=== PATIENT | female | born 1960 | race African-American/Black ===

== ENCOUNTER 2016-04-28 10:54 | Observation (INO) | payer MEDICAID ==
[2016-04-28 11:27] LABS: ABSOLUTE BASOPHILS # (AUTO) 0.1 10^3/uL (0.0-0.2); ABSOLUTE EOSINOPHILS # (AUTO) 0.1 10^3/uL (0.0-0.6); ABSOLUTE LYMPHOCYTES (AUTO) 1.8 10^3/uL (0.5-4.7); ABSOLUTE MONOCYTES (AUTO) 0.4 10^3/uL (0.1-1.4); ABSOLUTE NEUT (AUTO) 3.9 10^3/uL (1.7-8.2); EOSINOPHILS % (AUTO) 1.7 % (0-6); HEMOGLOBIN 12.2 g/dL (12.0-15.5); HGB HCT DIFFERENCE -0.4; LYMPHOCYTES % (AUTO) 28.6 % (13-45); MEAN CORPUSCULAR HGB CONC 32.9 g/dL (32.0-36.0); MEAN CORPUSCULAR VOLUME 88 fl (80-97); RED CELL DISTRIBUTION WIDTH 15.2 % (11.5-14.0); SEGMENTED NEUTROPHILS % (AUTO) 61.7 % (42-78); WHITE BLOOD COUNT 6.4 10^3/uL (4.0-10.5)
[2016-04-28 11:47] LABS: ALANINE AMINOTRANSFERASE 34 U/L (9-52); ALBUMIN 3.5 g/dL (3.5-5.0); ALKALINE PHOSPHATASE 57 U/L (38-126); ANION GAP 10 (5-19); ASPARTATE AMINO TRANSFERASE 22 U/L (14-36); BILIRUBIN,TOTAL 0.3 mg/dL (0.2-1.3); BLOOD UREA NITROGEN 25 mg/dL (7-20); CALCIUM 9.5 mg/dL (8.4-10.2); CARBON DIOXIDE 29 mmol/L (22-30); CHLORIDE 104 mmol/L (98-107); CREATINE KINASE 61 U/L (30-135); CREATININE RESULT 1.15 mg/dL (0.52-1.25); GLUCOSE 197 mg/dL (75-110); SODIUM 142.9 mmol/L (137-145); TOTAL PROTEIN 6.7 g/dL (6.3-8.2)
--- NOTE | 2016-04-28 11:49 | ER Document Report ---
ED General - General Time seen by provider: 11:44 Mode of Arrival: Medic Information source: Patient TRAVEL OUTSIDE OF THE [place] IN LAST 30 DAYS: No - HPI Onset: Other - see HPI note Associated symptoms: Other - room spinning sensation <TOMASA MENDEZ - Last Filed: 04/28/16 18:10> <JESSI JARA - Last Filed: 05/13/16 05:51> - General Chief Complaint: Vertigo Stated Complaint: DIFFICULTY BREATHING Notes: Patient is a 56-year-old female presents to the emergency department for dizziness. Patient states her dizziness started this morning when she woke up; she states that the room was blurry and spinning. Patient states that she was holding onto objects found walking to the bathroom because she felt very nauseated from her dizziness. Patient's dizziness is not reproducible to head movement or change in position. Patient states that this dizziness is waxing and waning if she is sitting still. Patient states she vomited 1 this morning. Patient denies being ill recently. Patient denies any shortness of breath. (TOMASA MENDEZ) - Related Data Allergies/Adverse Reactions: insulin glargine, human recombin. a [From Lantus] Adverse Reaction (Verified 17:33) Home Medications: Current Home Medications Allopurinol [Zyloprim 300 mg Tablet] 300 mg PO DAILY 04/28/16 [History] Aspirin [Aspirin 81 mg Chewable Tablet] 81 mg PO DAILY 04/28/16 [History] Carvedilol [Coreg 25 mg Tablet] 1 tab PO Q12 04/28/16 [History] Cholecalciferol (Vitamin D3) [D3-2000] 2,000 unit PO DAILY 04/28/16 [History] Gemfibrozil [Lopid 600 mg Tablet] 600 mg PO BID 04/28/16 [History] Glipizide [Glucotrol 10 mg Tablet] 10 mg PO BID 04/28/16 [History] Ibuprofen [Motrin 800 mg Tablet] 800 mg PO Q8HP PRN 04/28/16 [History] Lisinopril/Hydrochlorothiazide [Lisinopril-Hctz 20-25 mg Tab] 1 each PO DAILY [History] [place]-3/Dha/Epa/Fish Oil [Fish Oil 1,000 mg Softgel] 1 cap PO DAILY 04/28/16 [ History] Sitagliptin Phos/Metformin HCl [Janumet 50-1,000 mg Tablet] 1 tab PO BID [History] Tamoxifen Citrate [Nolvadex 10 mg Tablet] 10 mg PO BID 04/28/16 [History] Past Medical History - General Information source: Patient, Relative - Social History Smoking Status: Unknown if Ever Smoked Family History: None - Past Medical History Cardiac Medical History: Reports: Hx Hypercholesterolemia, Hx Hypertension Endocrine Medical History: Reports: Hx Diabetes Mellitus Type 2 Malignancy Medical History: Reports: Hx Breast Cancer Musculoskeltal Medical History: Reports Hx Arthritis Past Surgical History: Reports: Hx Breast Surgery - L. node on breast, Hx Section - x 1, Hx Hysterectomy, Hx Mastectomy - left breast - Immunizations Hx Diphtheria, Pertussis, Tetanus Vaccination: Yes <TOMASA MENDEZ - Last Filed: 04/28/16 18:10> Review of Systems - Review of Systems Constitutional: No symptoms reported EENT: No symptoms reported Cardiovascular: See HPI, Dizziness Respiratory: No symptoms reported Gastrointestinal: See HPI, Nausea, Vomiting Genitourinary: No symptoms reported Female Genitourinary: No symptoms reported Musculoskeletal: No symptoms reported Skin: No symptoms reported Hematologic/Lymphatic: No symptoms reported Neurological/Psychological: No symptoms reported -: Yes All other systems reviewed and negative <TOMASA MENDEZ - Last Filed: 04/28/16 18:10> Physical Exam - Vital signs Interpretation: Normal - General General appearance: Appears well, Alert In distress: Mild - HEENT Head: Normocephalic, Atraumatic Eyes: Normal Pupils: PERRL Mucous membranes: Moist - Respiratory Respiratory status: No respiratory distress Chest status: Nontender Breath sounds: Normal Chest palpation: Normal - Cardiovascular Rhythm: Regular Heart sounds: Normal auscultation Murmur: No - Abdominal Inspection: Normal Distension: No distension Bowel sounds: Normal Tenderness: Nontender Organomegaly: No organomegaly - Back Back: Normal, Nontender - Extremities General upper extremity: Normal inspection, Normal ROM, Normal strength General lower extremity: Normal inspection, Normal ROM, Normal strength - Neurological Neuro grossly intact: Yes Cognition: Normal Orientation: AAOx4 Dirk Coma Scale Eye Opening: Spontaneous [place] Coma Scale Verbal: Oriented [place] Coma Scale Motor: Obeys Commands Dirk Coma Scale Total: 15 Speech: Normal - Psychological Associated symptoms: Normal affect, Normal mood - Skin Skin Temperature: Warm Skin Moisture: Dry <TOMASA MENDEZ - Last Filed: 04/28/16 18:10> Course - Laboratory Result Diagrams: 04/28/16 11:12 04/28/16 11:12 <TOMASA MENDEZ - Last Filed: 04/28/16 18:10> - Laboratory Result Diagrams: 04/29/16 03:01 04/29/16 03:01 <JESSI JARA - Last Filed: 05/13/16 05:51> - Re-evaluation Re-evalutation: 04/28/16 15:28 I personally performed the services described in the documentation, reviewed and edited the documentation which was dictated to my scribe in my presence, and it accurately records my words and actions. Patient presents emergency department acute onset of dizziness when she woke up this morning. She said she got up the room was blurry she was dizzy shot a walk to the bathroom she made to the bathroom and had to grab onto everything was nauseated her dizziness was not reproducible to head movement or change in position. She had blurred vision earlier in the day but tonight currently on examination blood pressure was slightly elevated but she hadn't taken her medicine yet no history of stroke in the past. No speech or memory weakness on one side of the body versus the other on examination blood pressure slightly elevated no acute neurological deficits her dizziness was not reproducible to head movement or change in position and is persistent despite medication and Antivert here in the emergency department initial CT the head is negative I talked to Dr. Sanchez I want to admit her to the hospital and have an MRI done to rule out a cerebellar stroke. He agreed to this, put her in as an observation patient for further assessment and evaluation (JESSI JARA) - Vital Signs Vital signs: Temp Pulse Resp BP Pulse Ox 97.9 F 112 H 20 153/93 H 93 04/29/16 15:33 04/29/16 15:33 04/29/16 15:33 04/29/16 15:33 04/29/16 15:33 - Laboratory Laboratory results interpreted by me: 04/28/16 04/28/16 04/28/16 11:12 11:12 13:49 RDW 15.2 H BUN 25 H Est GFR ( Amer) 59 L Est GFR (Non-Af Amer) 49 L Glucose 197 H Urine Glucose (UA) 50 H - EKG Interpretation by Me Additional EKG results interpreted by me: 04/28/16 15:24 sinus at [address] t changes (JESSI JARA) Critical Care Note - Critical Care Note Total time excluding time spent on procedures (mins): 60 <JESSI JARA - Last Filed: 05/13/16 05:51> Discharge <TOMASA MENDEZ - Last Filed: 04/28/16 18:10> - Discharge Admitting Provider: Layla Unit Admitted: Telemetry <JESSI JARA - Last Filed: 05/13/16 05:51> - Discharge Clinical Impression: acute dizziness, Elevated blood pressure reading Condition: Stable Disposition: ADMITTED OBSERVATION Scribe Documentation - Scribe Written by Scribe:: Tomasa Mendez 04/28/16 11:48 acting as scribe for :: MAREK <TOMASA MENDEZ - Last Filed: 04/28/16 18:10>
[2016-04-28] MEDS ORDERED: MECLIZINE HCL 25 MG TABLET PO ONE (11:50)
[2016-04-28] MEDS ORDERED: NORMAL SALINE 1000 ML 500 ML IV ONE (11:51)
[2016-04-28] MEDS ORDERED: ONDANSETRON HCL 8 MG TABLET PO ONE (11:51)
[2016-04-28 11:59] LABS: CREATINE KINASE MB 0.28 ng/mL (<4.55)
[2016-04-28 12:00] LABS: TROPONIN I < 0.012 ng/mL
[2016-04-28 15:02] LABS: APPEARANCE,URINE CLEAR; BILIRUBIN,URINE NEGATIVE (NEGATIVE); GLUCOSE, URINE 50 mg/dL (NEGATIVE); KETONES,URINE NEGATIVE (NEGATIVE); LEUKOCYTE ESTERASE,URINE NEGATIVE (NEGATIVE); NITRITE,URINE NEGATIVE (NEGATIVE); PROTEIN,URINE NEGATIVE (NEGATIVE); URINE SPECIFIC GRAVITY 1.015; UROBILINOGEN,URINE NEGATIVE mg/dL (<2.0)
[2016-04-28] MEDS ORDERED: ACETAMINOPHEN 325 MG TABLET PO PRN (21:08)
[2016-04-28] MEDS ORDERED: ZOLPIDEM TARTRATE 5 MG TABLET PO PRN (21:08)
[2016-04-28] MEDS ORDERED: DEXTROSE 40% GEL 15 GM TUBE X 2 PO PRN (21:09)
[2016-04-28] MEDS ORDERED: DOCUSATE SODIUM 100 MG CAPSULE PO PRN (21:09)
[2016-04-28] MEDS ORDERED: GLUCAGON,HUMAN RECOMB 1 MG INJ IM PRN (21:09)
[2016-04-28] MEDS ORDERED: DEXTROSE 50%-WATER SYRINGE 12.5 GM/25 ML DOSE IV PRN (21:09)
[2016-04-28] MEDS ORDERED: DEXTROSE 50%-WATER SYRINGE 25 GM/50 ML DOSE IV PRN (21:09)
[2016-04-28] MEDS ORDERED: DEXTROSE 40% GEL 15 GM TUBE PO PRN (21:09)
[2016-04-28] MEDS ORDERED: INSULIN LISPRO 100 UNIT/ML 3 ML VIAL SUBCUT PRN (21:09)
[2016-04-28] MEDS ORDERED: IBUPROFEN 800 MG TABLET PO PRN (21:14)
[2016-04-28] MEDS ORDERED: (PENDING PHARMACY ID) (Carvedilol [Coreg 25 Mg Tablet] 1 TAB) PO SCH (22:00)
[2016-04-28 22:19] LABS: CREATINE KINASE MB < 0.22 ng/mL (<4.55); TROPONIN I < 0.012 ng/mL
[2016-04-29 03:36] LABS: ABSOLUTE BASOPHILS # (AUTO) 0.1 10^3/uL (0.0-0.2); ABSOLUTE EOSINOPHILS # (AUTO) 0.2 10^3/uL (0.0-0.6); ABSOLUTE LYMPHOCYTES (AUTO) 2.6 10^3/uL (0.5-4.7); ABSOLUTE MONOCYTES (AUTO) 0.7 10^3/uL (0.1-1.4); ABSOLUTE NEUT (AUTO) 4.1 10^3/uL (1.7-8.2); BASOPHILS % (AUTO) 0.7 % (0-2); HEMATOCRIT 36.1 % (36.0-47.0); HEMOGLOBIN 11.7 g/dL (12.0-15.5); LYMPHOCYTES % (AUTO) 34.5 % (13-45); MEAN CORPUSCULAR HEMOGLOBIN 28.9 pg (27.0-33.4); MEAN CORPUSCULAR HGB CONC 32.5 g/dL (32.0-36.0); MEAN CORPUSCULAR VOLUME 89 fl (80-97); MONOCYTES % (AUTO) 9.1 % (3-13); RED BLOOD COUNT 4.06 10^6/uL (3.72-5.28); RED CELL DISTRIBUTION WIDTH 14.5 % (11.5-14.0); SEGMENTED NEUTROPHILS % (AUTO) 53.7 % (42-78); WHITE BLOOD COUNT 7.6 10^3/uL (4.0-10.5)
[2016-04-29 03:55] LABS: ALANINE AMINOTRANSFERASE 30 U/L (9-52); ALBUMIN 3.3 g/dL (3.5-5.0); ALKALINE PHOSPHATASE 54 U/L (38-126); ANION GAP 8 (5-19); ASPARTATE AMINO TRANSFERASE 22 U/L (14-36); BILIRUBIN,TOTAL 0.3 mg/dL (0.2-1.3); BLOOD UREA NITROGEN 22 mg/dL (7-20); CALCIUM 9.4 mg/dL (8.4-10.2); CARBON DIOXIDE 28 mmol/L (22-30); CHLORIDE 106 mmol/L (98-107); CHOLESTEROL 140.59 mg/dL (0-200); CREATININE RESULT 1.15 mg/dL (0.52-1.25); Direct HDL 43 mg/dL (>40); GLUCOSE 210 mg/dL (75-110); POTASSIUM 3.9 mmol/L (3.6-5.0); SODIUM 141.5 mmol/L (137-145); TOTAL PROTEIN 6.3 g/dL (6.3-8.2); TRIGLYCERIDES 212 mg/dL (<150)
[2016-04-29 04:06] LABS: DIRECT LDL 65 mg/dL (<100)
[2016-04-29 04:09] LABS: VLDL CHOLESTEROL 42.4 mg/dL (10-31)
[2016-04-29 04:10] LABS: CREATINE KINASE MB < 0.22 ng/mL (<4.55)
[2016-04-29 04:11] LABS: TROPONIN I < 0.012 ng/mL
--- NOTE | 2016-04-29 05:33 | EKG REPORT ---
SEVERITY:- NORMAL ECG - SINUS RHYTHM : Confirmed by: Arin Ellis MD 29-Apr-2016 05:32:47
--- NOTE | 2016-04-29 05:33 | EKG REPORT ---
SEVERITY:- NORMAL ECG - SINUS RHYTHM : Confirmed by: Arin Ellis MD 29-Apr-2016 05:32:42
[2016-04-29] MEDS ORDERED: MECLIZINE HCL 25 MG TABLET PO PRN (09:03)
[2016-04-29] MEDS ORDERED: CHOLECALCIFEROL (D3) 1,000 UNIT TABLET PO SCH (10:00)
[2016-04-29] MEDS ORDERED: HYDROCHLOROTHIAZIDE 25 MG TABLET PO SCH (10:00)
[2016-04-29] MEDS ORDERED: GLIPIZIDE 10 MG TABLET PO SCH (10:00)
[2016-04-29] MEDS ORDERED: SITAGLIPTIN PHOSPHATE 50 MG TABLET PO SCH (10:00)
[2016-04-29] MEDS ORDERED: (PENDING PHARMACY ID) (Cholecalciferol (Vitamin D3) [D3-2000] 2,000 UNIT) PO SCH (10:00)
[2016-04-29] MEDS ORDERED: (PENDING PHARMACY ID) (Omega-3/Dha/Epa/Fish Oil [Fish Oil 1,000 Mg Softgel] 1 CAP) PO SCH (10:00)
[2016-04-29] MEDS ORDERED: TAMOXIFEN CITRATE 10 MG TABLET PO SCH (10:00)
[2016-04-29] MEDS ORDERED: OMEGA-3 ACID ETHYL ESTERS 1 GM CAPSULE PO SCH (10:00)
[2016-04-29] MEDS ORDERED: (PENDING PHARMACY ID) (Sitagliptin Phos/Metformin Hcl [Janumet 50-1,000 Mg Tablet] 1 TAB) PO SCH (10:00)
[2016-04-29] MEDS ORDERED: METFORMIN HCL 500 MG TABLET PO SCH (10:00)
[2016-04-29] MEDS ORDERED: GEMFIBROZIL 600 MG TABLET PO SCH (10:00)
[2016-04-29] MEDS ORDERED: ALLOPURINOL 300 MG TABLET PO SCH (10:00)
[2016-04-29] MEDS ORDERED: ENOXAPARIN SODIUM INJ 40 MG/0.4 ML DISP.SYRIN SUBCUT SCH (10:00)
[2016-04-29] MEDS ORDERED: CARVEDILOL 12.5 MG TABLET PO SCH (10:00)
[2016-04-29] MEDS ORDERED: ASPIRIN 81 MG TABLET, CHEWABLE PO SCH (10:00)
[2016-04-29] MEDS ORDERED: LISINOPRIL 10 MG TABLET PO SCH (10:00)
[2016-04-29] MEDS ORDERED: (PENDING PHARMACY ID) (Lisinopril/Hydrochlorothiazide [Lisinopril-Hctz 20-25 Mg Tab] 1 EAC PO SCH (10:00)
--- NOTE | 2016-04-29 12:11 | PDOC H&P ---
History of Present Illness Admission Date/PCP: 04/28/16 15:46 JOSH CALL MD Patient complains of: Dizziness- persistent History of Present Illness: JESSIE BELL is a 56 year old female with hx of DM2/HTN/Hyperlipidemia/BRIAN on CPAP/GERD/Gout/Back pain/OA/Gout/Vitamin D def/Constipation/Ca breast s.p lumpectomy/radiotherapy who presented to ED for persistent dizziness. Denied nausea/vomiting/chest pain/dyspnea/Palpitations/Diarrphoresis/Vertigo/deafness/ syncope.Denied previous hx of dizziness. She was admitted for full work up to rule out CVA. Past Medical History Cardiac Medical History: Reports: Hyperlipidema, Hypertension Endocrine Medical History: Reports: Diabetes Mellitus Type 2 Malignancy Medical History: Reports: Breast Cancer Musculoskeltal Medical History: Reports: Arthritis Psychiatric Medical History: Reports: Depression Hematology: Reports: Anemia Past Surgical History Past Surgical History: Reports: Section - x 1, Hysterectomy, Mastectomy - left breast Social History Smoking Status: Never Smoker Frequency of Alcohol Use: None Hx Recreational Drug Use: No Hx Prescription Drug Abuse: No - Advance Directive Resuscitation Status: Full Code Family History Family History: None Parental Family History Reviewed: Yes Children Family History Reviewed: Yes Sibling(s) Family History Reviewed.: Yes Medication/Allergy Home Medications: Allopurinol [Zyloprim 300 mg Tablet] 300 mg PO DAILY 04/28/16 Aspirin [Aspirin 81 mg Chewable Tablet] 81 mg PO DAILY 04/28/16 Carvedilol [Coreg 25 mg Tablet] 1 tab PO Q12 04/28/16 Cholecalciferol (Vitamin D3) [D3-2000] 2,000 unit PO DAILY 04/28/16 Gemfibrozil [Lopid 600 mg Tablet] 600 mg PO BID 04/28/16 Glipizide [Glocotrol 10 Mg Tablet] 10 mg PO BID 04/28/16 Ibuprofen [Motrin 800 mg Tablet] 800 mg PO Q8HP PRN 04/28/16 Lisinopril/Hydrochlorothiazide [Lisinopril-Hctz 20-25 mg Tab] 1 each PO DAILY [place]-3/Dha/Epa/Fish Oil [Fish Oil 1,000 mg Softgel] 1 cap PO DAILY 04/28/16 Sitagliptin Phos/Metformin HCl [Janumet 50-1,000 Mg Tablet] 1 tab PO BID Tamoxifen Citrate [Nolvadex 10 Mg Tablet] 10 mg PO BID 04/28/16 Allergies/Adverse Reactions: insulin glargine, human recombin. a [From Lantus] Adverse Reaction (Verified 17:33) Review of Systems All systems: as per PMH Constitutional: PRESENT: as per HPI Eyes: PRESENT: as per HPI Ears: PRESENT: as per HPI Nose, Mouth, and Throat: PRESENT: as per HPI Breasts: PRESENT: as per HPI Cardiovascular: PRESENT: as per HPI - Dizziness Respiratory: PRESENT: as per HPI Gastrointestinal: PRESENT: as per HPI Genitourinary: PRESENT: as per HPI Musculoskeletal: PRESENT: as per HPI Integumentary: PRESENT: as per HPI Neurological: PRESENT: dizziness Psychiatric: PRESENT: as per HPI Endocrine: PRESENT: as per HPI Hematologic/Lymphatic: PRESENT: as per HPI Allergic/Immunologic: PRESENT: as per HPI Physical Exam Vital Signs: Temp Pulse Resp BP Pulse Ox 98.8 F 63 20 131/87 H 98 04/29/16 11:08 04/29/16 11:08 04/29/16 11:08 04/29/16 11:08 04/29/16 11:08 Intake & Output 04/28/16 04/29/16 04/30/16 06:59 06:59 06:59 Intake Total 55 Output Total 200 Balance -145 Weight 135.6 kg General appearance: PRESENT: no acute distress, obese, well-developed, well- nourished Head exam: PRESENT: atraumatic, normocephalic Eye exam: PRESENT: EOMI, PERRLA Ear exam: PRESENT: normal external ear exam, TM's normal bilaterally Mouth exam: PRESENT: moist, neck supple, tongue midline Respiratory exam: PRESENT: clear to auscultation panda, symmetrical Cardiovascular exam: PRESENT: +S1, +S2 Pulses: PRESENT: +2 pedal pulses bilateral Vascular exam: PRESENT: normal capillary refill GI/Abdominal exam: PRESENT: normal bowel sounds, soft Rectal exam: PRESENT: deferred Extremities exam: PRESENT: full ROM Neurological exam: PRESENT: alert, awake, oriented to person, oriented to place , oriented to time Psychiatric exam: PRESENT: normal mood Results Laboratory Results: 04/29/16 03:01 04/29/16 03:01 04/29/16 04/29/16 04/29/16 03:01 03:01 03:01 WBC 7.6 RBC 4.06 Hgb 11.7 L Hct 36.1 MCV 89 MCH 28.9 MCHC 32.5 RDW 14.5 H Plt Count 202 Seg Neutrophils % 53.7 Lymphocytes % 34.5 Monocytes % 9.1 Eosinophils % 2.0 Basophils % 0.7 Absolute Neutrophils 4.1 Absolute Lymphocytes 2.6 Absolute Monocytes 0.7 Absolute Eosinophils 0.2 Absolute Basophils 0.1 Sodium 141.5 Potassium 3.9 Chloride 106 Carbon Dioxide 28 Anion Gap 8 BUN 22 H Creatinine 1.15 Est GFR ( Amer) 59 L Est GFR (Non-Af Amer) 49 L Glucose 210 H Calcium 9.4 Total Bilirubin 0.3 AST 22 ALT 30 Alkaline Phosphatase 54 Total Protein 6.3 Albumin 3.3 L Triglycerides 212 H Cholesterol 140.59 LDL Cholesterol Direct 65 VLDL Cholesterol 42.4 H HDL Cholesterol 43 TSH 2.28 04/28/16 04/28/16 04/29/16 21:35 21:35 03:01 Creatine Kinase 53 48 CK-MB (CK-2) < 0.22 Troponin I < 0.012 04/29/16 03:01 Creatine Kinase CK-MB (CK-2) < 0.22 Troponin I < 0.012 Impressions: Head CT 04/28/16 11:50 IMPRESSION: NORMAL BRAIN CT WITHOUT CONTRAST. Head MRI 04/29/16 06:00 IMPRESSION: ESSENTIALLY NORMAL MRI OF THE BRAIN WITHOUT AND WITH INTRAVENOUS GADOLINIUM CONTRAST. Assessment & Plan - Diagnosis (1) Dizziness Is this a current diagnosis for this admission?: YesPlan: Meclizine 25 mg TID prn po; Both CT head and MRI head with contrast are negative ;EKG and cardiac enzymes are negative. We will f/u Carotid doppler US and ECHO. (2) Diabetes mellitus type 2 in obese Is this a current diagnosis for this admission?: YesPlan: Ct with Janumet 1 BID po; Glipizide 10 mg BID po; slidding scale with humalog insulin [facility] protocol; 1800 calorie ADA diet. (3) Hypertension Is this a current diagnosis for this admission?: YesPlan: Ct with Lisinopril 20 mg qd po; Coreg 25 mg BID po; HCTZ 25 mg qd po; 2 g sodium diet. (4) Hyperlipidemia Is this a current diagnosis for this admission?: YesPlan: Ct with Gemfibrozil 600 mg BID po; [place] 3 1 g qd po; 200 mg cholesterol diet. (5) Back pain Is this a current diagnosis for this admission?: YesPlan: Ct with Tylenol 650 mg q6h prn po; Ibuprofen 800 mg TID prn po. (6) Gout Is this a current diagnosis for this admission?: YesPlan: CT with Allopurinol 300 mg qd po. (7) Obstructive sleep apnea Is this a current diagnosis for this admission?: YesPlan: Ct with CPAP at night. (8) Vitamin D deficiency Is this a current diagnosis for this admission?: YesPlan: Ct with Vitamin D 2000iu qd po. (9) Constipation Is this a current diagnosis for this admission?: YesPlan: Ct with Colace 100 mg qd prn po (10) Breast cancer Is this a current diagnosis for this admission?: YesPlan: Ct with Tamoxifen 10 mg BID po. (11) DVT prophylaxis Is this a current diagnosis for this admission?: YesPlan: Ct with Lovenox 40 mg qd subcut; SCD. - Time Time Spent: 30 to 50 Minutes Medications reviewed and adjusted accordingly: Yes Anticipated discharge: Home Within: within 24 hours
--- NOTE | 2016-04-29 15:23 | PDOC DISCHARGE SUMMARY ---
General - Admit/Disc Date/PCP Admission Date/Primary Care Provider: 04/28/16 15:46 REGGIE OROURKE Discharge Date: 04/29/16 - Discharge Diagnosis (1) Dizziness Is this a current diagnosis for this admission?: Yes (2) Diabetes mellitus type 2 in obese Is this a current diagnosis for this admission?: Yes (3) Hypertension Is this a current diagnosis for this admission?: Yes (4) Hyperlipidemia Is this a current diagnosis for this admission?: Yes (5) Back pain Is this a current diagnosis for this admission?: Yes (6) Gout Is this a current diagnosis for this admission?: Yes (7) Obstructive sleep apnea Is this a current diagnosis for this admission?: Yes (8) Vitamin D deficiency Is this a current diagnosis for this admission?: Yes (9) Constipation Is this a current diagnosis for this admission?: Yes (10) Breast cancer Is this a current diagnosis for this admission?: Yes (11) DVT prophylaxis Is this a current diagnosis for this admission?: Yes - Additional Information Resuscitation Status: Full Code Home Medications: Allopurinol [Zyloprim 300 mg Tablet] 300 mg PO DAILY 04/28/16 Aspirin [Aspirin 81 mg Chewable Tablet] 81 mg PO DAILY 04/28/16 Carvedilol [Coreg 25 mg Tablet] 1 tab PO Q12 04/28/16 Cholecalciferol (Vitamin D3) [D3-2000] 2,000 unit PO DAILY 04/28/16 Gemfibrozil [Lopid 600 mg Tablet] 600 mg PO BID 04/28/16 Glipizide [Glocotrol 10 Mg Tablet] 10 mg PO BID 04/28/16 Ibuprofen [Motrin 800 mg Tablet] 800 mg PO Q8HP PRN 04/28/16 Lisinopril/Hydrochlorothiazide [Lisinopril-Hctz 20-25 mg Tab] 1 each PO DAILY [place]-3/Dha/Epa/Fish Oil [Fish Oil 1,000 mg Softgel] 1 cap PO DAILY 04/28/16 Sitagliptin Phos/Metformin HCl [Janumet 50-1,000 Mg Tablet] 1 tab PO BID Tamoxifen Citrate [Nolvadex 10 Mg Tablet] 10 mg PO BID 04/28/16 History of Present Illness History of Present Illness: JESSIE BELL is a 56 year old female with hx of DM2/HTN/Hyperlipidemia/BRIAN on CPAP/GERD/Gout/Back pain/OA/Gout/Vitamin D def/Constipation/Ca breast s.p lumpectomy/radiotherapy who presented to ED for persistent dizziness. Denied nausea/vomiting/chest pain/dyspnea/Palpitations/Diarrphoresis/Vertigo/deafness/ syncope.Denied previous hx of dizziness. She was admitted for full work up to rule out CVA. Hospital Course Hospital Course: 56 year old woman who was admitted for dizziness of unclear etiology; she had serial EKG/cardiac enzymes and KS was ruled out. She normal CT head and MRI heard with contrast. She had normal Carotid doppler US. Her ECHO report is pending. She will be discharged home on Meclizine and to f/u with her PCP next week. Physical Exam Vital Signs: Temp Pulse Resp BP Pulse Ox 98.8 F 63 20 131/87 H 98 04/29/16 11:08 04/29/16 11:08 04/29/16 11:08 04/29/16 11:08 04/29/16 11:08 Intake & Output 04/28/16 04/29/16 04/30/16 06:59 06:59 06:59 Intake Total 55 0 Output Total 200 300 Balance -145 -300 Weight 135.6 kg General appearance: PRESENT: no acute distress, morbidly obese, obese, well- developed, well-nourished Head exam: PRESENT: atraumatic, normocephalic Eye exam: PRESENT: EOMI, PERRLA Ear exam: PRESENT: normal external ear exam, TM's normal bilaterally Mouth exam: PRESENT: moist, neck supple Respiratory exam: PRESENT: clear to auscultation panda, symmetrical Cardiovascular exam: PRESENT: +S1, +S2 Pulses: PRESENT: +2 pedal pulses bilateral Vascular exam: PRESENT: normal capillary refill GI/Abdominal exam: PRESENT: normal bowel sounds, soft Rectal exam: PRESENT: deferred Neurological exam: PRESENT: alert, awake, oriented to person, oriented to place , oriented to time Psychiatric exam: PRESENT: normal mood Results Laboratory Results: 04/29/16 03:01 04/29/16 03:01 04/29/16 04/29/16 04/29/16 03:01 03:01 03:01 WBC 7.6 RBC 4.06 Hgb 11.7 L Hct 36.1 MCV 89 MCH 28.9 MCHC 32.5 RDW 14.5 H Plt Count 202 Seg Neutrophils % 53.7 Lymphocytes % 34.5 Monocytes % 9.1 Eosinophils % 2.0 Basophils % 0.7 Absolute Neutrophils 4.1 Absolute Lymphocytes 2.6 Absolute Monocytes 0.7 Absolute Eosinophils 0.2 Absolute Basophils 0.1 Sodium 141.5 Potassium 3.9 Chloride 106 Carbon Dioxide 28 Anion Gap 8 BUN 22 H Creatinine 1.15 Est GFR ( Amer) 59 L Est GFR (Non-Af Amer) 49 L Glucose 210 H Calcium 9.4 Total Bilirubin 0.3 AST 22 ALT 30 Alkaline Phosphatase 54 Total Protein 6.3 Albumin 3.3 L Triglycerides 212 H Cholesterol 140.59 LDL Cholesterol Direct 65 VLDL Cholesterol 42.4 H HDL Cholesterol 43 TSH 2.28 04/28/16 04/28/16 04/29/16 21:35 21:35 03:01 Creatine Kinase 53 48 CK-MB (CK-2) < 0.22 Troponin I < 0.012 04/29/16 03:01 Creatine Kinase CK-MB (CK-2) < 0.22 Troponin I < 0.012 Impressions: Head CT 04/28/16 11:50 IMPRESSION: NORMAL BRAIN CT WITHOUT CONTRAST. Carotid Doppler Study 04/29/16 06:00 IMPRESSION: NO HEMODYNAMICALLY SIGNIFICANT STENOSIS. Head MRI 04/29/16 06:00 IMPRESSION: ESSENTIALLY NORMAL MRI OF THE BRAIN WITHOUT AND WITH INTRAVENOUS GADOLINIUM CONTRAST.
[2016-04-29 15:45] VITALS: BP 153/93
--- NOTE | 2016-04-29 17:11 | XCELERA REPORT ---
[address] [address] Transthoracic Echocardiogram Report Name: JESSIE BELL Age: 56 yrs Gender: Female : 1960 Patient Status: Inpatient Patient Location: [id number]\302\[id number] Study Date: 04/29/2016 02:05 PM Height: 66 in Weight: 298 lb BSA: 2.4 m2 Procedure: A complete two-dimensional transthoracic echocardiogram was performed (2D, M-mode, spectral and color flow Doppler). The study was technically difficult with many images being suboptimal in quality. Reason For Study: dizziness / vertigo Ordering Physician: JOSH CALL Performed By: Vicki Murray Interpretation Summary The left ventricular ejection fraction is normal. There is mild concentric left ventricular hypertrophy. Doppler measurements suggest pseudonormalized left ventricular relaxation, which is associated with grade II/IV or mild to moderate diastolic dysfunction The left ventricle is grossly normal size. Wall motion cannot be accurately commented on, but no definite regional wall motion abnormalities noted. The right ventricle is grossly normal size. The right ventricular systolic function is normal. The right atrium is normal. Borderline left atrial enlargement. There is no mitral valve stenosis. There is a trace amount of mitral regurgitation There is no aortic valve stenosis No aortic regurgitation is present. There is a trace or physiologic amount of tricuspid regurgitation Tricuspid regurgitation jet envelope not well defined to measure RV systolic pressure accurately. The aortic root is not well visualized. The inferior vena cava was not well visualized There is no pericardial effusion. MMode/2D Measurements \T\ Calculations RVDd: 2.8 cm LVIDd: 4.1 cm FS: 40.4 % Ao root diam: 3.1 cm IVSd: 1.1 cm LVIDs: 2.5 cm EDV(Teich): 75.2 ml LVPWd: 1.1 cm ESV(Teich): 21.4 ml Ao root area: 7.4 cm2 EF(Teich): 71.6 % LA dimension: 3.7 cm LVOT diam: 1.9 cm LVOT area: 2.9 cm2 Doppler Measurements \T\ Calculations MV E max mellisa: MV P1/2t max mellisa: Ao V2 max: LV V1 max P.2 cm/sec 66.1 cm/sec 173.7 cm/sec 7.0 mmHg MV A max mellisa: MV P1/2t: 56.5 msec Ao max PG: LV V1 max: 72.1 cm/sec MVA(P1/2t): 3.9 cm2 12.1 mmHg 131.9 cm/sec MV E/A: 0.89 MV dec slope: MERVIN(V,D): 2.2 cm2 342.9 cm/sec2 PA V2 max: TR max mellisa: 97.2 cm/sec 218.2 cm/sec PA max PG: TR max P.0 mmHg 3.8 mmHg Left Ventricle The left ventricle is grossly normal size. There is mild concentric left ventricular hypertrophy. The left ventricular ejection fraction is normal. Doppler measurements suggest pseudonormalized left ventricular relaxation, which is associated with grade II/IV or mild to moderate diastolic dysfunction. Wall motion cannot be accurately commented on, but no definite regional wall motion abnormalities noted. Right Ventricle The right ventricle is grossly normal size. There is normal right ventricular wall thickness. The right ventricular systolic function is normal. Atria The right atrium is normal. Borderline left atrial enlargement. Interarterial septum not well visualized and not well dopplered. Cannot comment on ASD/PFO presence. Mitral Valve The mitral valve is grossly normal. There is no mitral valve stenosis. There is a trace amount of mitral regurgitation. Aortic Valve The aortic valve is not well visualized secondary to technical limitations. There is no aortic valve stenosis. No aortic regurgitation is present. Tricuspid Valve The tricuspid valve is not well visualized, but is grossly normal. There is no tricuspid stenosis. There is a trace or physiologic amount of tricuspid regurgitation. Tricuspid regurgitation jet envelope not well defined to measure RV systolic pressure accurately. Pulmonic Valve The pulmonic valve is not well visualized. Great Vessels The aortic root is not well visualized. The inferior vena cava was not well visualized. Effusions There is no pericardial effusion. : JOSH CALL > Jimmy Quintanilla
--- NOTE | 2016-04-30 16:05 | EKG REPORT ---
SEVERITY:- BORDERLINE ECG - SINUS RHYTHM PROBABLE LEFT ATRIAL ABNORMALITY BORDERLINE T ABNORMALITIES, DIFFUSE LEADS : Confirmed by: Arin Ellis MD 30-Apr-2016 16:04:48
== END 2016-04-29 17:15 | disposition home or self-care (01) ==
LOC: ER 10:54 → EH 15:46 → 3N 19:54
PROVIDERS: ADMIT Internal Medicine; ATTEND Internal Medicine
DX: R42 Dizziness and giddiness (principal); E11.9 Type 2 diabetes mellitus without complications; I10 Essential (primary) hypertension; M54.9 Dorsalgia, unspecified; E78.5 Hyperlipidemia, unspecified; M10.9 Gout, unspecified; G47.33 Obstructive sleep apnea (adult) (pediatric); E55.9 Vitamin D deficiency, unspecified; K59.00 Constipation, unspecified; C50.919 Malignant neoplasm of unspecified site of unspecified female breast
CPT/HCPCS: 93005 ×3; 99291; 36415 ×2; 82553 ×2; 82962 ×2; 82550 ×2; 84443; 85025 ×2; 80053 ×2; 81001; 84484 ×2; 83036; 80061; 93306; 93880; 70553; 70450; 93010 ×2; A9577; J3490 ×9; J1650; S0119; J7030; G0378

== ENCOUNTER 2016-08-03 01:34 | Emergency (ER) | payer MEDICARE, MEDICAID ==
--- NOTE | 2016-08-03 02:33 | RADIOLOGY REPORT (SQ) ---
EXAM DESCRIPTION: CHEST PA/LAT COMPLETED DATE/TIME: 08/03/2016 2:19 am REASON FOR STUDY: cough, fever COMPARISON: 12.17.14 EXAM PARAMETERS: NUMBER OF VIEWS: two views TECHNIQUE: Digital Frontal and Lateral radiographic views of the chest acquired. RADIATION DOSE: NA LIMITATIONS: none FINDINGS: LUNGS AND PLEURA: No opacities, masses or pneumothorax. No pleural effusion. Prominent in terstitium. With MEDIASTINUM AND HILAR STRUCTURES: No masses or contour abnormalities. HEART AND VASCULAR STRUCTURES: Heart normal size. No evidence for failure. BONES: No acute findings. HARDWARE: None in the chest. OTHER: No other significant finding. IMPRESSION: No acute cardiopulmonary findings. TECHNICAL DOCUMENTATION: JOB ID: [id number] [email or web address]- All Rights Reserved
[2016-08-03] MEDS ORDERED: ACETAMINOPHEN 325 MG TABLET PO ONE (03:49)
[2016-08-03 04:27] LABS: APPEARANCE,URINE SLIGHTLY-CLOUDY; BILIRUBIN,URINE NEGATIVE (NEGATIVE); GLUCOSE, URINE NEGATIVE (NEGATIVE); KETONES,URINE TRACE mg/dL (NEGATIVE); LEUKOCYTE ESTERASE,URINE LARGE (NEGATIVE); NITRITE,URINE NEGATIVE (NEGATIVE); PROTEIN,URINE 30 mg/dL (NEGATIVE); URINE SPECIFIC GRAVITY 1.009; UROBILINOGEN,URINE NEGATIVE mg/dL (<2.0)
[2016-08-03] MEDS ORDERED: CEFTRIAXONE INJ 1000 MG VIAL IM ONE (04:51)
[2016-08-03] MEDS ORDERED: LIDOCAINE 1% INJ-PF (10 MG/ML) 30 ML SDV INFIL ONE (04:51)
--- NOTE | 2016-08-03 04:52 | ER Document Report ---
ED General - General Chief Complaint: Fever Stated Complaint: DIFFICULTY BREATHING Time Seen by Provider: 08/03/16 02:04 Notes: Patient is a 56-year-old female presents with complaint of pain in her left flank. She has had fevers. No vomiting. No diarrhea. No abdominal pain. Pain is mostly of her left lower back. She has had a slight cough. Slight headache. Symptoms started today. She is diabetic. She has not taken anything for her fever at home. TRAVEL OUTSIDE OF THE [place] IN LAST 30 DAYS: No - Related Data Allergies/Adverse Reactions: insulin glargine, human recombin. a [From Lantus] Adverse Reaction (Verified 17:33) Past Medical History - Social History Smoking Status: Unknown if Ever Smoked Frequency of alcohol use: None Drug Abuse: None Family History: None - Past Medical History Cardiac Medical History: Reports: Hx Hypercholesterolemia, Hx Hypertension Endocrine Medical History: Reports: Hx Diabetes Mellitus Type 2 Renal/ Medical History: Denies: Hx Peritoneal Dialysis Malignancy Medical History: Reports: Hx Breast Cancer Musculoskeltal Medical History: Reports Hx Arthritis Psychiatric Medical History: Reports: Hx Depression Past Surgical History: Reports: Hx Breast Surgery - L. node on breast, Hx Section - x 1, Hx Hysterectomy, Hx Mastectomy - left breast - Immunizations Hx Diphtheria, Pertussis, Tetanus Vaccination: Yes Review of Systems - Review of Systems Notes: My Normal Review Basic REVIEW OF SYSTEMS: CONSTITUTIONAL : Fever EENT: Denies eye, ear, throat, or mouth pain or symptoms. Denies nasal or sinus congestion. CARDIOVASCULAR: Denies chest pain. RESPIRATORY: Cough GASTROINTESTINAL: Denies abdominal pain. Denies nausea, vomiting, or diarrhea. Denies constipation. Last BM: GENITOURINARY: Left lower back pain. Some dysuria. MUSCULOSKELETAL: Left lower back pain. SKIN: Denies rash or skin lesions. NEUROLOGICAL: Denies altered mental status or loss of consciousness. Denies headache. Denies weakness or paralysis or ALL OTHER SYSTEMS REVIEWED AND NEGATIVE. Physical Exam - Vital signs Vitals: Temp Pulse Resp BP Pulse Ox 101.3 F H 87 16 138/86 H 98 08/03/16 01:42 08/03/16 01:42 08/03/16 01:42 08/03/16 01:42 08/03/16 01:42 - Notes Notes: General Appearance: Well nourished, alert, cooperative, no acute distress, mild obvious discomfort. Not septic or toxic appearing. Vitals: reviewed, See vital signs table. Head: no swelling or tenderness to the head Eyes: PERRL, EOMI, Conjuctiva clear Mouth: No decreasd moisturThroat: No tonsillar inflammation, No airway obstruction, No lymphadenopathy Lungs: No wheezing, No rales, No rhonci, No accessory muscle use, good air exchange bilaterally. Heart: Normal rate, Regular rythm, No murmur, no rub Abdomen: Normal BS, soft, No rigidity, No abdominal tenderness, No guarding, no rebound, no abdominal masses, no organomegaly Back: Positive Geoff's sign on the left Extremities: strength 5/5 in all extremities, good pulses in all extremities, no swelling or tenderness in the extremities, no edema. Skin: warm, dry, appropriate color, no rash Neuro: speech clear, oriented x 3, normal affect, responds appropriately to questions. Course - Vital Signs Vital signs: Temp Pulse Resp BP Pulse Ox 100.0 F 87 16 138/86 H 98 08/03/16 03:39 08/03/16 01:42 08/03/16 01:42 08/03/16 01:42 08/03/16 01:42 - Laboratory Laboratory results interpreted by me: 08/03/16 04:10 Urine Protein 30 H Urine Ketones TRACE H Urine Blood SMALL H Ur Leukocyte Esterase LARGE H - Transfer of Care Notes: 08/03/16 04:57 Patient appears to have a kidney infection. She does have positive Geoff's sign and does have many white blood cells on urinalysis. I do not suspect kidney stone. She did not have much blood in the UA and she does not have that much pain in her flank. She does have a fever upon arrival. We did give her Tylenol and her fever is starting to subside. She is not septic or toxic appearing. I will give her a dose of Rocephin. I will place her on antibiotics. I informed her she must return to ER if she has recurrent fevers, vomiting, or feels unwell. Patient agrees with plan will be discharged home. Dictation of this chart was performed using voice recognition software; therefore, there may be some unintended grammatical errors. 08/03/16 04:58 Discharge - Discharge Clinical Impression: UTI (urinary tract infection) Qualifiers: Urinary tract infection type: site unspecified Hematuria presence: with hematuria Qualified Code(s): N39.0 - Urinary tract infection, site not specified Condition: Good Disposition: HOME, SELF-CARE Additional Instructions: PYELONEPHRITIS: Your evaluation shows evidence of pyelonephritis. This is an infection in the kidney. Typical symptoms are fever, pain in the flank, pain on urination, and frequent urination. Many cases of pyelonephritis can be treated at home. Hospital care may be necessary for patients who are very ill, or elderly or . Pyelonephritis is treated with antibiotics. Be sure to take all the medication as prescribed. Drink plenty of liquids (about three quarts per day) . You may take acetaminophen for fever. You should feel significantly improved within two days. You should have a recheck of your urine in about one week to insure that the infection is gone. Return for a re-examination if your symptoms worsen in any way -- such as high fever, shaking chills, severe weakness or dizziness, severe pain, or inability to pass your urine. ANTIBIOTIC THERAPY: You have been given an antibiotic prescription. It's important that you take all the medication, unless instructed otherwise by your physician. Failure to complete the entire course can result in relapse of your condition. Common side effects of antibiotics include nausea, intestinal cramping, or diarrhea. Women may develop vaginal yeast infections, and babies can get yeast (thrush) in the mouth following the use of antibiotics. Contact your physician if you develop significant side effects from this medication. Allergy to this antibiotic can result in hives, wheezing, faintness, or itching. If symptoms of allergy occur, stop the medication and call the doctor. ROCEPHIN: You have been given an injection of an antibiotic called Rocephin ( ceftriaxone). Sometimes the injection must be combined with antibiotic pills. For some infections, such as an uncomplicated ear infection, Rocephin provides all the antibiotic that's needed. The antibiotic will be in your body for about two days. For serious infections, we usually repeat doses of Rocephin daily. Side effects are very unusual following a shot. Women may develop vaginal yeast infections, and babies can get yeast (thrush) in the mouth following the use of antibiotics. Contact your physician if you have symptoms with this medication. Allergy to this antibiotic can result in hives, wheezing, faintness, or itching. If symptoms of allergy occur, call the doctor at once. CEPHALEXIN: The antibiotic you've been prescribed is a member of the cephalosporin class. This type of antibiotic covers a wide variety of infections, including those of the skin, lungs, and urinary tract. It's useful for staph infections. This antibiotic is slightly similar to the penicillin family. In rare cases , a person who is allergic to penicillin will also be allergic to this medication. If you have had a severe allergic reaction to penicillin, and have not taken this antibiotic since that time, notify your doctor. Antibiotics which cover many germs ("broad spectrum" antibiotics) are more likely to cause diarrhea or "yeast" infections. Women prone to vaginal yeast problems may suffer an attack after taking this antibiotic. In infants, oral thrush (white spots "stuck" on the cheek) or yeast diaper rash may result. See your doctor if these problems occur. Call at once if you develop itching, hives , shortness of breath, or lightheadedness. FOLLOW-UP CARE: If you have been referred to a physician for follow-up care, call the physician s office for an appointment as you were instructed or within the next two days. If you experience worsening or a significant change in your symptoms, notify the physician immediately or return to the Emergency Department at any time for re-evaluation. Please have a low threshold to return to the ER if oyu have worsening pain, fevers, vomiting, or feel that you are worsening in any way. Referrals: JOSH CALL MD [Primary Care Provider] - Follow up tomorrow
[2016-08-03 05:07] VITALS: BP 140/80
== END 2016-08-03 05:07 | disposition home or self-care (01) ==
LOC: ER 01:34
DX: N39.0 Urinary tract infection, site not specified (principal); R50.9 Fever, unspecified; R06.00 Dyspnea, unspecified; R10.9 Unspecified abdominal pain; E78.00 Pure hypercholesterolemia, unspecified; I10 Essential (primary) hypertension; E11.9 Type 2 diabetes mellitus without complications; Z90.710 Acquired absence of both cervix and uterus; Z87.442 Personal history of urinary calculi
CPT/HCPCS: 93005; 94640; 99284; 96372; 96360; 36415; 87040; 87086; 82962; 85025; 85610; 87077; 80053; 81001; 87186; 82803; 83605; 71020; 93010; A9270; J3490; J0696; J7030; J7620

== ENCOUNTER 2016-08-03 23:32 | Emergency (ER) | payer MEDICARE, MEDICAID ==
[2016-08-03] MEDS ORDERED: ACETAMINOPHEN 325 MG TABLET PO ONE (23:50)
--- NOTE | 2016-08-04 00:14 | ER Document Report ---
ED General - General Chief Complaint: Cough Stated Complaint: COUGH/HARD TO BREATH Time Seen by Provider: 08/03/16 23:56 Notes: Patient is a 56-year-old female, past medical history diabetes, COPD, presents with 2 days of left flank pain and dry cough. Today, she started noticing that she is having left flank pain when she takes deep breaths. He was diagnosed with pyelonephritis last night and started on Keflex. She says that she is taking Keflex as prescribed, but her fever returns. She denies nausea, vomiting , chest pain, hemoptysis, leg swelling, neck pain, abdominal pain or rash. TRAVEL OUTSIDE OF THE [place] IN LAST 30 DAYS: No - Related Data Allergies/Adverse Reactions: insulin glargine, human recombin. a [From Lantus] Adverse Reaction (Verified 17:33) Past Medical History - General Information source: Patient - Social History Smoking Status: Never Smoker Family History: None Patient has suicidal ideation: No Patient has homicidal ideation: No - Past Medical History Cardiac Medical History: Reports: Hx Hypercholesterolemia, Hx Hypertension Endocrine Medical History: Reports: Hx Diabetes Mellitus Type 2 Renal/ Medical History: Denies: Hx Peritoneal Dialysis Malignancy Medical History: Reports: Hx Breast Cancer Musculoskeltal Medical History: Reports Hx Arthritis Psychiatric Medical History: Reports: Hx Depression Past Surgical History: Reports: Hx Breast Surgery - L. node on breast, Hx Section - x 1, Hx Hysterectomy, Hx Mastectomy - left breast - Immunizations Hx Diphtheria, Pertussis, Tetanus Vaccination: Yes Review of Systems - Review of Systems Notes: REVIEW OF SYSTEMS: CONSTITUTIONAL: +fevers, -chills EENT: -eye pain, -difficulty swallowing, -nasal congestion CARDIOVASCULAR: -chest pain, -syncope. RESPIRATORY: +cough, -SOB GASTROINTESTINAL: -abdominal pain, -nausea, -vomiting, -diarrhea GENITOURINARY: +dysuria, -hematuria MUSCULOSKELETAL: +left flank pain, -neck pain SKIN: -rash or skin lesions. HEMATOLOGIC: -easy bruising or bleeding. LYMPHATIC: -swollen, enlarged glands. NEUROLOGICAL: -altered mental status or loss of consciousness, -headache, - neurologic symptoms PSYCHIATRIC: -anxiety, -depression. ALL OTHER SYSTEMS REVIEWED AND NEGATIVE. Physical Exam - Vital signs Vitals: Temp Pulse Resp BP Pulse Ox 103.1 F H 104 H 20 140/76 H 97 08/03/16 23:44 08/03/16 23:44 08/03/16 23:44 08/03/16 23:44 08/03/16 23:44 - Notes Notes: PHYSICAL EXAMINATION: GENERAL: Well-appearing, well-nourished and in no acute distress. HEAD: Atraumatic, normocephalic. EYES: Pupils equal round and reactive to light, extraocular movements intact, sclera anicteric, conjunctiva are normal. ENT: nares patent, oropharynx clear without exudates. Moist mucous membranes. NECK: Normal range of motion, supple without lymphadenopathy LUNGS: No respiratory distress. Mild end-expiratory wheezing. HEART: Tachycardia. ABDOMEN: Soft, nontender, normoactive bowel sounds. Left CVA tenderness. No guarding, no rebound. No masses appreciated. EXTREMITIES: Normal range of motion, no pitting or edema. No cyanosis. NEUROLOGICAL: Cranial nerves grossly intact. Normal speech, normal gait. Normal sensory and motor exams. PSYCH: Normal mood, normal affect. SKIN: Warm, Dry, normal turgor, no rashes or lesions noted. Course - Re-evaluation Re-evalutation: The patient appears very well. She has only taken 2 doses of her antibiotics. Told her to continue the antibiotics for her UTI. Her chest x-ray does not show any evidence of pneumonia and she is in no respiratory distress. She said that her wheezing feels much better after her DuoNeb. Tachycardia and fever resolveda after Tylenol and fluids. Told to follow-up with her primary care physician tomorrow. - Vital Signs Vital signs: Temp Pulse Resp BP Pulse Ox 99.7 F 104 H 20 140/76 H 97 08/04/16 02:19 08/03/16 23:44 08/03/16 23:44 08/03/16 23:44 08/03/16 23:44 - Laboratory Result Diagrams: 08/04/16 00:25 08/04/16 00:25 Laboratory results interpreted by me: 08/04/16 08/04/16 08/04/16 00:25 00:25 00:25 WBC 24.1 H Hgb 11.5 L MCHC 31.4 L RDW 15.1 H Seg Neuts % (Manual) 82 H Band Neutrophils % 2 L Lymphocytes % (Manual) 12 L Abs Neuts (Manual) 20.2 H PT 15.9 H VBG pH Sodium 136.9 L Carbon Dioxide 21 L BUN 21 H Creatinine 1.47 H Est GFR ( Amer) 44 L Est GFR (Non-Af Amer) 37 L Glucose 203 H Albumin 3.4 L Urine Protein Urine Ketones Urine Blood Ur Leukocyte Esterase 08/04/16 08/04/16 00:25 02:20 WBC Hgb MCHC RDW Seg Neuts % (Manual) Band Neutrophils % Lymphocytes % (Manual) Abs Neuts (Manual) PT VBG pH 7.44 H Sodium Carbon Dioxide BUN Creatinine Est GFR ( Amer) Est GFR (Non-Af Amer) Glucose Albumin Urine Protein 30 H Urine Ketones 20 H Urine Blood SMALL H Ur Leukocyte Esterase TRACE H - Diagnostic Test Radiology reviewed: Image reviewed, Reports reviewed Radiology results interpreted by me: CXR: NAD Discharge - Discharge Clinical Impression: Pyelonephritis, Wheezing Condition: Stable Disposition: HOME, SELF-CARE Additional Instructions: PYELONEPHRITIS: Your evaluation shows evidence of pyelonephritis. This is an infection in the kidney. Typical symptoms are fever, pain in the flank, pain on urination, and frequent urination. Many cases of pyelonephritis can be treated at home. Hospital care may be necessary for patients who are very ill, or elderly or . Pyelonephritis is treated with antibiotics. Be sure to take all the medication as prescribed. Drink plenty of liquids (about three quarts per day) . You may take acetaminophen for fever. You should feel significantly improved within two days. You should have a recheck of your urine in about one week to insure that the infection is gone. Return for a re-examination if your symptoms worsen in any way -- such as high fever, shaking chills, severe weakness or dizziness, severe pain, or inability to pass your urine. ANTIBIOTIC THERAPY: You have been given an antibiotic prescription. It's important that you take all the medication, unless instructed otherwise by your physician. Failure to complete the entire course can result in relapse of your condition. Common side effects of antibiotics include nausea, intestinal cramping, or diarrhea. Women may develop vaginal yeast infections, and babies can get yeast (thrush) in the mouth following the use of antibiotics. Contact your physician if you develop significant side effects from this medication. Allergy to this antibiotic can result in hives, wheezing, faintness, or itching. If symptoms of allergy occur, stop the medication and call the doctor. CEPHALEXIN: The antibiotic you've been prescribed is a member of the cephalosporin class. This type of antibiotic covers a wide variety of infections, including those of the skin, lungs, and urinary tract. It's useful for staph infections. This antibiotic is slightly similar to the penicillin family. In rare cases , a person who is allergic to penicillin will also be allergic to this medication. If you have had a severe allergic reaction to penicillin, and have not taken this antibiotic since that time, notify your doctor. Antibiotics which cover many germs ("broad spectrum" antibiotics) are more likely to cause diarrhea or "yeast" infections. Women prone to vaginal yeast problems may suffer an attack after taking this antibiotic. In infants, oral thrush (white spots "stuck" on the cheek) or yeast diaper rash may result. See your doctor if these problems occur. Call at once if you develop itching, hives , shortness of breath, or lightheadedness. USE OF ACETAMINOPHEN (Tylenol): Acetaminophen may be taken for pain relief or fever control. It's much safer than aspirin, offering a wider range of "safe" dosages. It is safe during . Some brand names are Tylenol, Panadol, Datril, Anacin 3, Tempra, and Liquiprin. Acetaminophen can be repeated every four hours. The following are maximum recommended dosages: >89 pounds or adults 650 mg to 900 mg Acetaminophen can be repeated every four hours. Maximum dose not to exceed 4000 mg a day. ORAL NARCOTIC MEDICATION: You have been given a prescription for pain control. This medication is a narcotic. It's best taken with food, as nausea can result if taken on an empty stomach. Don't operate machinery or drive within six hours of taking this medication. Do not combine this medicine with alcohol, or with any medication which can cause sedation (such as cold tablets or sleeping pills) unless you get permission from the physician. Narcotics tend to cause constipation. If possible, drink plenty of fluids and eat a diet high in fiber and fruits. Please be aware that prescription narcotics also have the potential for abuse. People become addicted to these medications because of the general sense of wellbeing that they induce. This feeling along with a significant reduction in tension, anxiety, and aggression provides a stimulating seductive quality to these drugs. Once your pain is under control, we encourage you to discard your unused narcotics. FOLLOW-UP CARE: If you have been referred to a physician for follow-up care, call the physician s office for an appointment as you were instructed or within the next two days. If you experience worsening or a significant change in your symptoms, notify the physician immediately or return to the Emergency Department at any time for re-evaluation. Prescriptions: Hydrocodone/Acetaminophen [[place] 5-325 mg Tablet] 1 tab PO Q6H PRN #10 tablet PRN Reason: Referrals: YUE MASSEY MD [Primary Care Provider] - Follow up as needed
[2016-08-04] MEDS ORDERED: IPRATROPIUM/ALBUTEROL 0.5-2.5 MG/3 ML AMPUL NEB ONE (00:22)
--- NOTE | 2016-08-04 00:36 | RADIOLOGY REPORT (SQ) ---
EXAM DESCRIPTION: CHEST PA/LAT COMPLETED DATE/TIME: 08/04/2016 12:07 am REASON FOR STUDY: cough COMPARISON: None. EXAM PARAMETERS: NUMBER OF VIEWS: two views TECHNIQUE: Digital Frontal and Lateral radiographic views of the chest acquired. RADIATION DOSE: NA LIMITATIONS: none FINDINGS: LUNGS AND PLEURA: No opacities, masses or pneumothorax. No pleural effusion. Moderate cody g volumes. Pulmonary vascular congestion. MEDIASTINUM AND HILAR STRUCTURES: No masses or contour abnormalities. HEART AND VASCULAR STRUCTURES: Heart normal size. No evidence for failure. BONES: No acute findings. HARDWARE: None in the chest. OTHER: No other significant finding. IMPRESSION: No acute cardiopulmonary findings. TECHNICAL DOCUMENTATION: JOB ID: [id number] [employer]- All Rights Reserved
[2016-08-04 00:48] LABS: VENOUS BLOOD BASE EXCESS 1.7 mmol/L; VENOUS BLOOD HCO3 25.9 mmol/L (20-32); VENOUS BLOOD PH 7.44 (7.30-7.42)
[2016-08-04 00:52] LABS: HEMATOCRIT 36.6 % (36.0-47.0); HEMOGLOBIN 11.5 g/dL (12.0-15.5); HGB HCT DIFFERENCE -2.1; MEAN CORPUSCULAR HEMOGLOBIN 27.7 pg (27.0-33.4); MEAN CORPUSCULAR HGB CONC 31.4 g/dL (32.0-36.0); MEAN CORPUSCULAR VOLUME 88 fl (80-97); PROTHROMBIN TIME 15.9 SEC (11.4-15.4); RED BLOOD COUNT 4.14 10^6/uL (3.72-5.28); RED CELL DISTRIBUTION WIDTH 15.1 % (11.5-14.0); WHITE BLOOD COUNT 24.1 10^3/uL (4.0-10.5)
[2016-08-04 01:02] LABS: ALANINE AMINOTRANSFERASE 30 U/L (9-52); ALBUMIN 3.4 g/dL (3.5-5.0); ALKALINE PHOSPHATASE 76 U/L (38-126); ANION GAP 14 (5-19); ASPARTATE AMINO TRANSFERASE 23 U/L (14-36); BILIRUBIN,DIRECT 0.4 mg/dL (0.0-0.4); BILIRUBIN,TOTAL 0.7 mg/dL (0.2-1.3); BLOOD UREA NITROGEN 21 mg/dL (7-20); CALCIUM 9.3 mg/dL (8.4-10.2); CARBON DIOXIDE 21 mmol/L (22-30); CHLORIDE 102 mmol/L (98-107); CREATININE RESULT 1.47 mg/dL (0.52-1.25); GLUCOSE 203 mg/dL (75-110); POTASSIUM 3.8 mmol/L (3.6-5.0); SODIUM 136.9 mmol/L (137-145)
[2016-08-04] MEDS ORDERED: NORMAL SALINE 1000 ML 1,000 ML IV ONE (01:13)
[2016-08-04 01:34] LABS: ANISOCYTOSIS SLIGHT; BAND NEUTROPHILS % (MANUAL) 2 % (3-5); BASOPHILS % (MANUAL) 0 % (0-2); EOSINOPHILS % (MANUAL) 0 % (0-6); LYMPHOCYTES % (MANUAL) 12 % (13-45); OVALOCYTES SLIGHT; POIKILOCYTOSIS SLIGHT; TEAR DROP CELLS SLIGHT; TOTAL CELLS COUNTED 100; TOXIC GRANULATION SLIGHT
[2016-08-04] MEDS ORDERED: CEPHALEXIN 500 MG CAPSULE PO ONE (02:30)
[2016-08-04] MEDS ORDERED: HYDROCODONE/ACETAMINOPHEN 5-325 MG TABLET PO ONE (02:30)
[2016-08-04 02:38] LABS: APPEARANCE,URINE CLOUDY; BILIRUBIN,URINE NEGATIVE (NEGATIVE); GLUCOSE, URINE NEGATIVE (NEGATIVE); KETONES,URINE 20 mg/dL (NEGATIVE); LEUKOCYTE ESTERASE,URINE TRACE (NEGATIVE); NITRITE,URINE NEGATIVE (NEGATIVE); PROTEIN,URINE 30 mg/dL (NEGATIVE); URINE SPECIFIC GRAVITY 1.018; UROBILINOGEN,URINE NEGATIVE mg/dL (<2.0)
[2016-08-04 04:22] VITALS: BP 147/84
--- NOTE | 2016-08-04 10:45 | EKG REPORT ---
SEVERITY:- OTHERWISE NORMAL ECG - SINUS TACHYCARDIA LOW VOLTAGE IN FRONTAL LEADS : Confirmed by: Arin Ellis MD 04-Aug-2016 10:44:13
== END 2016-08-04 04:23 | disposition home or self-care (01) ==
LOC: ER 23:32
DX: N12 Tubulo-interstitial nephritis, not specified as acute or chronic (principal); R06.2 Wheezing; R05 Cough; R10.9 Unspecified abdominal pain; J44.9 Chronic obstructive pulmonary disease, unspecified; E78.00 Pure hypercholesterolemia, unspecified; I10 Essential (primary) hypertension; E11.9 Type 2 diabetes mellitus without complications; Z85.3 Personal history of malignant neoplasm of breast; Z90.710 Acquired absence of both cervix and uterus; Z90.12 Acquired absence of left breast and nipple
CPT/HCPCS: 93005; 94640; 99284; 96360; 36415; 87040; 87086; 82962; 85025; 85610; 87077; 80053; 81001; 87186; 82803; 83605; 71020; 93010; A9270 ×4; J7030; J7620

== ENCOUNTER 2017-03-13 23:46 | Emergency (ER) | payer MEDICARE, MEDICAID ==
[2017-03-14] MEDS ORDERED: LIDOCAINE 2% VISCOUS SOLN 20 ML UDCUP PO ONE (02:35)
[2017-03-14] MEDS ORDERED: METOCLOPRAMIDE HCL ORAL SOLN 10 MG/10 ML UDCUP PO ONE (02:35)
[2017-03-14] MEDS ORDERED: MAG HYDROX/AL HYDROX/SIMETH SUSP 30 ML UDCUP PO ONE (02:35)
--- NOTE | 2017-03-14 02:36 | ER Document Report ---
ED General <TOBI BOLAÑOS - Last Filed: 03/14/17 10:35> - General TRAVEL OUTSIDE OF THE [place] IN LAST 30 DAYS: No <WANDER NICOLE - Last Filed: 03/14/17 19:15> - General Chief Complaint: Abdominal pain, N/V, ALBARADO Stated Complaint: STOMACH ACHE Time Seen by Provider: 03/14/17 02:06 Notes: Patient is a 57-year-old female who presents emergency department with a chief complaint of nausea, vomiting, epigastric pain, diarrhea. She describes her epigastric pain is a constant cramping achy pain. Patient states that all of her symptoms started early afternoon on Monday. She states that she has not really taken anything to help with her symptoms. She denies any coffee-ground emesis, hematemesis, dark tarry stools, bright red blood per rectum. She denies any history of GERD, peptic ulcer disease. Past medical history significant for breast cancer, hypertension, diabetes, hyperlipidemia, gout Past surgical significant for previous breast biopsy, 1, previous hysterectomy Social history denies any tobacco, alcohol or drug use. She lives alone but does have family in the area Home medications include lisinopril with hydrochlorothiazide, ibuprofen 800 mg 3 times a day as needed, vitamin D, allopurinol, fish oil, aspirin, Coreg, glipizide, tamoxifen, Janumet, Voltaren gel as needed. Oncologist is Dr. Prado (WANDER NICOLE) - Related Data Allergies/Adverse Reactions: insulin glargine, human recombin. a [From Lantus] Adverse Reaction (Verified 17:33) Past Medical History - Social History Smoking Status: Smoker,Current Status Unk Family History: None - Past Medical History Cardiac Medical History: Reports: Hx Hypercholesterolemia, Hx Hypertension Endocrine Medical History: Reports: Hx Diabetes Mellitus Type 2 Renal/ Medical History: Denies: Hx Peritoneal Dialysis Malignancy Medical History: Reports: Hx Breast Cancer Musculoskeltal Medical History: Reports Hx Arthritis Psychiatric Medical History: Reports: Hx Depression Past Surgical History: Reports: Hx Breast Surgery - L. node on breast, Hx Section - x 1, Hx Hysterectomy, Hx Mastectomy - left breast - Immunizations Hx Diphtheria, Pertussis, Tetanus Vaccination: Yes <WANDER NICOLE - Last Filed: 03/14/17 19:15> Review of Systems - Review of Systems Constitutional: No symptoms reported Cardiovascular: No symptoms reported Respiratory: No symptoms reported Gastrointestinal: See HPI Genitourinary: No symptoms reported Female Genitourinary: No symptoms reported -: Yes All other systems reviewed and negative <WANDER NICOLE - Last Filed: 03/14/17 19:15> Physical Exam <TOBI BOLAÑOS - Last Filed: 03/14/17 10:35> <WANDER NICOLE - Last Filed: 03/14/17 19:15> - Vital signs Vitals: Temp Pulse Resp BP Pulse Ox 100.6 F H 97 18 170/78 H 96 03/14/17 00:00 03/14/17 00:00 03/14/17 00:00 03/14/17 00:00 03/14/17 00:00 - Notes Notes: PHYSICAL EXAM GENERAL: Alert, interacts well. HEAD: Normocephalic, atraumatic. EYES: Pupils equal, round, and reactive to light. Extraocular movements intact. ENT: Oral mucosa moist, tongue midline. NECK: Full range of motion. Supple. Trachea midline. LUNGS: Clear to auscultation bilaterally, no wheezes, rales, or rhonchi. No respiratory distress. HEART: Regular rate and rhythm. No murmurs, gallops, or rubs. ABDOMEN: Soft, nondistended, moderate epigastric tenderness ontender. No guarding, rebound, or rigidity.. Bowel sounds present in all 4 quadrants. RECTAL: nontender, sphincter intact, external hemorrhoid without induration, tenderness, active bleeding EXTREMITIES: Moves all 4 extremities spontaneously. No edema, radial and dorsalis pedis pulses 2/4 bilaterally. No cyanosis. NEUROLOGICAL: Alert and oriented x4. Normal speech. PSYCH: Normal affect, normal mood. SKIN: Warm, dry, normal turgor. No rashes or lesions noted. (WANDER NICOLE) Course - Laboratory Result Diagrams: 03/14/17 02:15 03/14/17 02:15 <TOBI BOLAÑOS - Last Filed: 03/14/17 10:35> - Laboratory Result Diagrams: 03/14/17 02:15 03/14/17 02:15 <WANDER NICOLE - Last Filed: 03/14/17 19:15> - Re-evaluation Re-evalutation: Disposition given by REGGIE Singleton at 0730. Patient appears to not be in any distress and is stable at this time. Still waiting for CT abdominal/pelvic oral and IV scan. CT results negative for any acute findings. 1025- Rechecked the patient who is resting comfortably. On re-exam, patient is symptomatically improved. consult Dr. Troncoso, supervisor [employer] and [employer] on-call for due to the fact that patient was positive for occult stool all other results are negative such as C. difficile, laboratory findings were unremarkable as well as her CT scan. Advised that we start her on outpatient Protonix 40 mg daily and he will see her in the next couple days for an outpatient scope, does not feel that she requires one today. Discussed the results of the labs/radiology as well as the diagnosis at great length. Advised her that due to the positive occult stool that she would require to be further evaluated by supervisor food checkers and cashiers, advised her to take Protonix 40 mg daily.Discussed the need to return to the ER for any new or worsening sx of abdominal pain to return immediately. patient understands to take the Rx as directed. All questions answered. Patient verbalized understanding of this plan of care and agree with plan of care. Patient was discharged home.Patient comfortable with the decision to go home. Patient was seen today for abdominal pain. After review of laboratory studies and radiologic studies there are no signs of acute abdomen or other life- threatening ailments. I did consider acute appendicitis, peritonitis, urinary tract infection, cholelithiasis, cholecystitis, abdominal aortic aneurysm, intestinal obstruction, diverticulitis/ diverticulosis and pyelonephritis. At this time I feel the patient is stable for discharge is instructed to follow up with her primary care physician in 2-3 days return to emergency department for worsening symptoms or lack of resolution of symptoms in the next 24-48 hours. 03/14/17 10:37 (TOBI BOLAÑOS) 03/14/17 05:39 Patient is a 49-year-old female is hemodynamically stable, no acute distress and afebrile. CBC stable without evidence of leukocytosis or anemia. Chemistry stable with stable kidney function with comparison to previous exams. Urinalysis clean without any evidence of UTI or dehydration. Patient states she clinically feels better but remains tender to palpation on repeat abdominal exam will send for CT of the abdomen and pelvis to evaluate for any. Evidence of ulcer 03/14/17 06:56 Patient stool sample was sent and does show evidence of positive occult stool. We will send for type and screen will initiate a Protonix drip and continue with a CT of the abdomen pelvis with IV and p.o. contrast. Patient is agreeable with plan. States that her pain is tolerable if we do not press on it. We do have gastroenterology today. Patient will remain n.p.o. 03/14/17 07:47 sign out to Tobi Bolaños [employer] (WANDER NICOLE) - Vital Signs Vital signs: Temp Pulse Resp BP Pulse Ox 98.4 F 88 18 111/66 96 03/14/17 11:32 03/14/17 11:32 03/14/17 00:00 03/14/17 11:32 03/14/17 11:32 - Laboratory Laboratory results interpreted by me: 03/14/17 03/14/17 03/14/17 02:15 02:15 04:34 RDW 15.5 H Seg Neutrophils % 86.7 H Lymphocytes % 7.8 L BUN 23 H Est GFR ( Amer) 57 L Est GFR (Non-Af Amer) 48 L Glucose 179 H Urine Ketones TRACE H Discharge <TOBI BOLAÑOS - Last Filed: 03/14/17 10:35> <WANDER NICOLE - Last Filed: 03/14/17 19:15> - Discharge Clinical Impression: Epigastric pain, Occult blood positive stool Condition: Good Disposition: HOME, SELF-CARE Instructions: Abdominal Pain ([facility]) Additional Instructions: Acid-Suppressing Medication You have a prescription for medicine which reduces the stomach's secretion of acid. Examples include Zantac, Tagament, and Pepcid. These drugs are often used to allow healing of ulcers or esophagitis. They may be needed to prevent recurrence of ulcers in some patients, or to prevent damage from acid reflux in the esophagus. Take all medication as prescribed, even after the pain is gone. Regular antacids may be added as needed if you have symptoms while taking this medicine. These medications sometimes are prescribed for allergic reactions because they have anti-histaminic effects and relieve the rash and itching of the reaction. There are usually no side effects from this medication. But, in rare cases and particularly in the elderly, serious problems can occur. Contact your doctor if there is fever, rash, hallucinations, confusion, or unusual bruising. Contact your doctor at once if you develop lightheadedness, black or bloody stool, or bloody vomitus. ABDOMINAL PAIN: There are many causes of abdominal pain. Pain can mean a serious problem requiring surgery (such as appendicitis). It can also be an innocent problem that goes away on its own (such as a viral infection). Often, time must pass to determine the cause of pain. The physician does not feel that hospitalization is necessary, at present. Things may change within the next 24 hours. Call the doctor or come back for re- examination if any problems occur, such as: (1) Pain that becomes more severe, steady, or becomes concentrated in one specific area. Also, pain that is more severe with movement or coughing. (2) Vomiting that persists or becomes more frequent. (3) Blood in the vomitus, urine, or bowel movements. Blood in the stool may have a tarry or black appearance. (4) Shaking chills or fever greater than 100 degrees F. (5) The abdomen becomes more distended or swollen. (6) Bowel movements cease. (7) Failure to improve as expected. NORMAL EXAM AND WORKUP: At this time, your examination and workup show no significant abnormality. No significant abnormal physical findings are noted. All laboratory, EKG, and imaging (x-ray, CT scans, ultrasound) studies that were ordered show no significant abnormality. Although your examination and all studies that were ordered showed no significant abnormal finding, there are no examinations and no studies that are 100% accurate. There is always the possibility that some abnormality could exist and not be detected with physical examination or within the limits and capabilities of laboratory and other studies. You should return or follow up as you were instructed on your visit today for further evaluation if your symptoms do not resolve. TORADOL INJECTION: You have been given an injection of ketorolac tromethamine (Toradol). This is an excellent, safe drug for pain control. It also has potent antiinflammatory action. You should have significant pain relief within about one hour. Toradol is not addicting and is non-sedating. It does not interfere with driving or work. Call or return if you develop itching, hives, shortness of breath, or rash. PAIN MEDICATION INJECTION: You have received an injection of a pain medication. You should experience significant pain relief within 45 minutes. This drug is a narcotic - - it will impair your judgement, slow your reaction time and make you sleepy ( as well as relieve your pain). Narcotics also can cause nausea. You should not drive, work with machinery, or perform any task requiring mental alertness until all effects of the medication are gone -- six to eight hours. Do not take any alcohol, or sedatives, and do not take any other medication without checking with your physician. ANTINAUSEA MEDICATION: You have been given a medication to suppress nausea and vomiting. This type of medication can be given as a shot, pill, or suppository. It will usually last for many hours. Pills and shots usually last six to eight hours, suppositories last about 12 hours. For the typical illness, only one or two doses of the medication may be necessary. Mild lightheadedness may occur. This type of medicine can cause drowsiness. Do not drive or operate dangerous machinery while under its influence. Do not mix with alcohol. See your doctor at once if you have muscle spasms or tightness, or uncontrollable motions (particularly of the neck, mouth, or jaw). Persistent vomiting or severe lightheadedness should also be evaluated by the physician. ANTISPASMODICS: You have been given a prescription for an antispasmodic medicine. This type of drug is used to decrease cramping and pain in the intestines. It is also used to decrease secretion of internal fluids (such as stomach acid in ulcer disease or pancreatic juice in pancreas disease). This medicine may cause drowsiness, especially with the first dose. Do not operate machinery or drive until all side effects have resolved. Do not combine with alcohol. Other common side effects include dry mouth and eyes. In older persons, antispasmodics can occasionally cause urinary retention, constipation, or trouble focusing the eyes. Glaucoma may be worsened by this medicine. ORAL NARCOTIC MEDICATION: You have been given a prescription for pain control. This medication is a narcotic. It's best taken with food, as nausea can result if taken on an empty stomach. Don't operate machinery or drive within six hours of taking this medication. Do not combine this medicine with alcohol, or with any medication which can cause sedation (such as cold tablets or sleeping pills) unless you get permission from the physician. Narcotics tend to cause constipation. If possible, drink plenty of fluids and eat a diet high in fiber and fruits. Please be aware that prescription narcotics also have the potential for abuse. People become addicted to these medications because of the general sense of wellbeing that they induce. This feeling along with a significant reduction in tension, anxiety, and aggression provides a stimulating seductive quality to these drugs. Once your pain is under control, we encourage you to discard your unused narcotics. Up with Dr.Khye Troncoso, supervisor [employer] cash[employer] addiction psychiatrist today to set up an outpatient appointment for a possible scope. Take Protonix 40 mg daily as directed. FOLLOW-UP CARE: You should return for re-evaluation in 12 hours. This follow-up visit is important. If you are unable to return, or feel that the return visit is unnecessary, please call us. Prescriptions: Pantoprazole Sodium [Protonix] 40 mg PO DAILY #30 tablet. Referrals: JOSH CALL MD [Primary Care Provider] - Follow up as needed YADI TRONCOSO MD [ACTIVE STAFF] - Follow up as needed
[2017-03-14 02:44] LABS: ABSOLUTE EOSINOPHILS # (AUTO) 0.1 10^3/uL (0.0-0.6); ABSOLUTE LYMPHOCYTES (AUTO) 0.6 10^3/uL (0.5-4.7); ABSOLUTE MONOCYTES (AUTO) 0.3 10^3/uL (0.1-1.4); ABSOLUTE NEUT (AUTO) 6.5 10^3/uL (1.7-8.2); BASOPHILS % (AUTO) 0.5 % (0-2); EOSINOPHILS % (AUTO) 0.8 % (0-6); HEMATOCRIT 39.9 % (36.0-47.0); HEMOGLOBIN 13.3 g/dL (12.0-15.5); LYMPHOCYTES % (AUTO) 7.8 % (13-45); MEAN CORPUSCULAR HEMOGLOBIN 29.3 pg (27.0-33.4); MEAN CORPUSCULAR HGB CONC 33.3 g/dL (32.0-36.0); MEAN CORPUSCULAR VOLUME 88 fl (80-97); MONOCYTES % (AUTO) 4.2 % (3-13); PLATELET COUNT 232 10^3/uL (150-450); RED BLOOD COUNT 4.53 10^6/uL (3.72-5.28); RED CELL DISTRIBUTION WIDTH 15.5 % (11.5-14.0); SEGMENTED NEUTROPHILS % (AUTO) 86.7 % (42-78); TOTAL CELLS COUNTED % (AUTO) 100 %; WHITE BLOOD COUNT 7.5 10^3/uL (4.0-10.5)
[2017-03-14 02:48] LABS: ALANINE AMINOTRANSFERASE 33 U/L (9-52); ALBUMIN 3.9 g/dL (3.5-5.0); ALKALINE PHOSPHATASE 59 U/L (38-126); ANION GAP 9 (5-19); ASPARTATE AMINO TRANSFERASE 29 U/L (14-36); BILIRUBIN,DIRECT 0.2 mg/dL (0.0-0.4); BILIRUBIN,TOTAL 0.5 mg/dL (0.2-1.3); BLOOD UREA NITROGEN 23 mg/dL (7-20); CALCIUM 10.1 mg/dL (8.4-10.2); CARBON DIOXIDE 28 mmol/L (22-30); CHLORIDE 107 mmol/L (98-107); GLUCOSE 179 mg/dL (75-110); LIPASE 142.1 U/L (23-300); POTASSIUM 4.2 mmol/L (3.6-5.0); SODIUM 143.8 mmol/L (137-145); TOTAL PROTEIN 7.1 g/dL (6.3-8.2)
[2017-03-14] MEDS ORDERED: NORMAL SALINE 1000 ML 1,000 ML IV ONE (03:13)
[2017-03-14 05:34] LABS: APPEARANCE,URINE SLIGHTLY-CLOUDY; BILIRUBIN,URINE NEGATIVE (NEGATIVE); COLOR,URINE YELLOW; GLUCOSE, URINE NEGATIVE (NEGATIVE); KETONES,URINE TRACE mg/dL (NEGATIVE); LEUKOCYTE ESTERASE,URINE NEGATIVE (NEGATIVE); NITRITE,URINE NEGATIVE (NEGATIVE); PROTEIN,URINE NEGATIVE (NEGATIVE); URINE SPECIFIC GRAVITY 1.021; UROBILINOGEN,URINE NEGATIVE mg/dL (<2.0)
[2017-03-14] MEDS ORDERED: IBUPROFEN 800 MG TABLET PO ONE (05:40)
[2017-03-14 06:36] LABS: CREATINE KINASE MB 0.22 ng/mL (<4.55)
[2017-03-14 06:38] LABS: TROPONIN I < 0.012 ng/mL
[2017-03-14] MEDS ORDERED: PANTOPRAZOLE SODIUM 40 MG VIAL IV ONE (06:41)
[2017-03-14] MEDS ORDERED: PANTOPRAZOLE SODIUM 40 MG VIAL IV PRN (06:42)
--- NOTE | 2017-03-14 07:43 | EKG REPORT ---
SEVERITY:- BORDERLINE ECG - SINUS RHYTHM BORDERLINE T WAVE ABNORMALITIES : Confirmed by: Toro Danielle MD 14-Mar-2017 07:42:04
--- NOTE | 2017-03-14 09:06 | RADIOLOGY REPORT (SQ) ---
EXAM DESCRIPTION: CT ABD/PELVIS WITH IV ORAL COMPLETED DATE/TIME: 03/14/2017 8:51 am REASON FOR STUDY: epigastric pain COMPARISON: CT abdomen pelvis 01/05/2015 TECHNIQUE: CT scan of the abdomen and pelvis performed using helical scanning technique with dynamic intravenous contrast injection. Patient drank oral contrast. Images reviewed with lung, soft tissue, and bone windows. Reconstructed coronal and sagittal MPR imag es reviewed. Delayed images for evaluation of the urinary system also acquired. All images stored on PACS. All CT scanners at this facility use dose modulation, iterative reconstruction, and/or weight based d osing when appropriate to reduce radiation dose to as low as reasonably achievable (ALARA). [facility]: Dose Right [facility]: CareDose [facility]: Dose Right [facility]: Teradose 4D [facility]: Tubaloo CONTRAST TYPE AND DOSE: contrast/concentration: Isovue 370.00 mg/ml; Total Contrast Delivered: 96.0 ml; Total Saline Delivered: 70.0 ml RENAL FUNCTION: Creatinine 1.2 RADIATION DOSE: CT Rad equipment meets quality standard of care and radiation dose reduction techniq ues were employed. CTDIvol: 21.1 mGy. DLP: 2471 mGy-cm.. LIMITATIONS: None. FINDINGS: LOWER CHEST: No significant findings. No nodules or infiltrates. LIVER: Normal size. No masses. No dilated ducts. SPLEEN: Normal size. No focal lesions. PANCREAS: No masses. No significant calcifications. No adjacent inflammation or peripancreatic fluid collections. Pancreatic duct not dilated. GALLBLADDER: Multiple stones in the gallbladder. No gross gallbladder wall thickening or pericholecy stic fluid. ADRENAL GLANDS: No significant masses or asymmetry. RIGHT KIDNEY AND URETER: No solid masses. No significant calcifications. No hydronephrosis or hyd roureter. LEFT KIDNEY AND URETER: No solid masses. No significant calcifications. No hydronephrosis or hydr oureter. AORTA AND VESSELS: No aneurysm. No dissection. Renal arteries, SMA, celiac without stenosis. RETROPERITONEUM: No retroperitoneal adenopathy, hemorrhage or masses. BOWEL AND PERITONEAL CAVITY: No masses or inflammatory changes. No free fluid or peritoneal masses. APPENDIX: Normal. PELVIS: No mass. No free fluid. Normal bladder. Post hysterectomy ABDOMINAL WALL: No masses. No hernias. BONES: No significant or acute findings. OTHER: No other significant finding. IMPRESSION: NO SIGNIFICANT OR ACUTE FINDING IN THE ABDOMEN OR PELVIS ON CT SCAN WITH IV CONTRAST. TECHNICAL DOCUMENTATION: JOB ID: [id number] Quality ID # [id number]: Final reports with documentation of one or more dose reduction techniques (e.g., Au tomated exposure control, adjustment of the mA and/or kV according to patient size, use of iterative reconstruction technique) 2010 [employer]- All Rights Reserved
[2017-03-14 11:40] VITALS: BP 111/66
== END 2017-03-14 11:45 | disposition home or self-care (01) ==
LOC: ER 23:46
DX: R10.13 Epigastric pain (principal); R19.5 Other fecal abnormalities; R11.2 Nausea with vomiting, unspecified; R51 Headache; R19.7 Diarrhea, unspecified; Z85.3 Personal history of malignant neoplasm of breast; I10 Essential (primary) hypertension; E11.9 Type 2 diabetes mellitus without complications; M10.9 Gout, unspecified; Z79.899 Other long term (current) drug therapy; Z79.4 Long term (current) use of insulin
CPT/HCPCS: 93005; 99285; 96365; 96366; 36415; 87045; 87205; 82553; 82550; 83690; 85025; 82272; 80053; 81001; 84484; 87493; 74177; 93010; A9270 ×2; J3490; C9113; J7030; S0164

== ENCOUNTER 2017-03-27 08:59 | Day surgery (SDC) | payer MEDICARE, MEDICAID ==
[~2017-03-27 08:59] MED LIST: PROPOFOL INJ 200 MG/20 ML VIAL IV ONE
[2017-03-27 11:28] VITALS: BP 143/75
--- NOTE | 2017-03-27 12:36 | Operative Report ---
Operative Report DATE OF SURGERY: 03/27/17 Operative Report: The risks, benefits and alternatives of the procedure including risks of bleeding, perforation requiring surgery are explained to the patient in detail and informed consent is obtained. Patient is taken back to the endoscopy suite and placed in the left, lateral decubital position. Timeout was called. Propofol medications administered. A rectal examination is done which did not reveal any masses, tears or fissures. An Olympus videoscope was inserted into the patient's rectum. The scope was then carefully advanced all the way to the cecum. The cecum was identified by the usual anatomical landmarks including the ileocecal valve as well as the appendiceal office. Photodocumentation is obtained. The scope was then sequentially pulled back via the various segments of the colon including the ascending colon, hepatic flexure, transverse colon, splenic flexure, descending colon and finding to the rectosigmoid portions of the colon. Retroflexion is performed. The risks benefits and alternatives of the procedure explained to the patient in detail and informed consent is obtained .A GIF Olympus video scope was inserted into the patient's mouth and hypopharynx, the esophagus is identified intubated and insufflated ,the scope was then advanced through the esophagus stomach and duodenum ,retroflexion maneuver is done, the esophagus stomach and first and second portions of the duodenum examined PREOPERATIVE DIAGNOSIS: Epigastric pain, blood in stool POSTOPERATIVE DIAGNOSIS: Right side colon iflammation status post biopsy rule out lymphocytic, microscopic, collagenous colitis. Internal hemorrhoids. Gastritis status post biopsy rule out Helicobacter pylori OPERATION: Colonoscopy with biopsy. EGD with biopsy SURGEON: YADI BARAHONA ANESTHESIA: LMAC TISSUE REMOVED OR ALTERED: As noted above. COMPLICATIONS: None. ESTIMATED BLOOD LOSS: None. INTRAOPERATIVE FINDINGS: As noted above. PROCEDURE: Patient tolerated procedure well. No immediate postprocedure complications are noted. Patient discharged in good condition. Discharge date 03/27/2017. Discharge diet: Regular. Discharge activity: Regular. 2-3 week follow-up to discuss findings. Patient is instructed to call the office or proceed to the emergency room should there be any further problems or questions. We will wait on pathology.
== END 2017-03-27 12:00 | disposition home or self-care (01) ==
LOC: END 08:59
PROVIDERS: ATTEND Internal Medicine Gastroenterology
PROC: 0DB68ZX Excision of Stomach, Via Natural or Artificial Opening Endoscopic, Diagnostic (ICD-10-PCS; principal; 2017-03-27 12:00)
PROC: 0DBF8ZX Excision of Right Large Intestine, Via Natural or Artificial Opening Endoscopic, Diagnostic (ICD-10-PCS; 2017-03-27 12:00)
DX: K52.9 Noninfective gastroenteritis and colitis, unspecified (principal); K64.8 Other hemorrhoids; K29.50 Unspecified chronic gastritis without bleeding
CPT/HCPCS: 43239; 45380; 82962; 88342 ×2; 88305 ×2; J2704; 813

== ENCOUNTER 2018-05-24 05:36 | Emergency (ER) | payer MEDICARE, MEDICAID ==
[2018-05-24 06:49] LABS: ABSOLUTE BASOPHILS # (AUTO) 0.1 10^3/uL (0.0-0.2); ABSOLUTE EOSINOPHILS # (AUTO) 0.1 10^3/uL (0.0-0.6); ABSOLUTE MONOCYTES (AUTO) 0.6 10^3/uL (0.1-1.4); ABSOLUTE NEUT (AUTO) 6.6 10^3/uL (1.7-8.2); BASOPHILS % (AUTO) 0.7 % (0-2); EOSINOPHILS % (AUTO) 1.6 % (0-6); HEMATOCRIT 41.4 % (36.0-47.0); HEMOGLOBIN 14.2 g/dL (12.0-15.5); LYMPHOCYTES % (AUTO) 11.9 % (13-45); MEAN CORPUSCULAR HEMOGLOBIN 30.5 pg (27.0-33.4); MEAN CORPUSCULAR HGB CONC 34.2 g/dL (32.0-36.0); MEAN CORPUSCULAR VOLUME 89 fl (80-97); MONOCYTES % (AUTO) 6.9 % (3-13); PLATELET COUNT 206 10^3/uL (150-450); RED BLOOD COUNT 4.64 10^6/uL (3.72-5.28); RED CELL DISTRIBUTION WIDTH 14.7 % (11.5-14.0); SEGMENTED NEUTROPHILS % (AUTO) 78.9 % (42-78); TOTAL CELLS COUNTED % (AUTO) 100 %; WHITE BLOOD COUNT 8.4 10^3/uL (4.0-10.5)
[2018-05-24 07:08] LABS: ALANINE AMINOTRANSFERASE 37 U/L (9-52); ALBUMIN 3.6 g/dL (3.5-5.0); ALKALINE PHOSPHATASE 78 U/L (38-126); ANION GAP 6 (5-19); ASPARTATE AMINO TRANSFERASE 35 U/L (14-36); BILIRUBIN,DIRECT 0.3 mg/dL (0.0-0.4); BILIRUBIN,TOTAL 0.8 mg/dL (0.2-1.3); BLOOD UREA NITROGEN 15 mg/dL (7-20); CALCIUM 9.9 mg/dL (8.4-10.2); CARBON DIOXIDE 30 mmol/L (22-30); CHLORIDE 103 mmol/L (98-107); GLUCOSE 273 mg/dL (75-110); SODIUM 139.4 mmol/L (137-145); TOTAL PROTEIN 6.7 g/dL (6.3-8.2)
[2018-05-24] MEDS ORDERED: ONDANSETRON HCL INJ/PF 4 MG/2 ML SDV IV ONE (07:15)
[2018-05-24] MEDS ORDERED: NORMAL SALINE 1000 ML 1,000 ML IV ONE (07:15)
[2018-05-24] MEDS ORDERED: FAMOTIDINE INJ/PF 20 MG/2 ML SDV IV ONE (07:15)
[2018-05-24 07:16] LABS: APPEARANCE,URINE TURBID; BILIRUBIN,URINE NEGATIVE (NEGATIVE); COLOR,URINE AMBER; GLUCOSE, URINE >=500 mg/dL (NEGATIVE); KETONES,URINE 20 mg/dL (NEGATIVE); LEUKOCYTE ESTERASE,URINE TRACE (NEGATIVE); NITRITE,URINE NEGATIVE (NEGATIVE); PROTEIN,URINE 100 mg/dL (NEGATIVE); URINE SPECIFIC GRAVITY 1.024
--- NOTE | 2018-05-24 07:16 | ER Document Report ---
ED GI/ - General Chief Complaint: Nausea/Vomiting/Diarrhea Stated Complaint: VOMITING Time Seen by Provider: 05/24/18 06:50 Primary Care Provider: JOSH CALL MD [Primary Care Provider] - Follow up as needed Notes: 58-year-old female patient emergency department chief complaint of abdominal pain and diarrhea. Symptoms have been present for 1 day. Denies any significant chest pain. No bloody diarrhea reported. No shortness of breath. TRAVEL OUTSIDE OF THE [place] IN LAST 30 DAYS: No - HPI Patient complains to provider of: Abdominal pain, Diarrhea Timing/Duration: Gradual, Constant Quality of pain: Achy Severity at maximum: Moderate Severity in ED: Moderate Pain Level: 3 Location: Other - Diffuse, crampy Associated symptoms: Nausea, Vomiting - Related Data Allergies/Adverse Reactions: insulin glargine, human recombin. a [From Lantus] Adverse Reaction (Verified 05/24/18 05:37) RASH Past Medical History - General Information source: Patient - Social History Smoking Status: Never Smoker Frequency of alcohol use: None Drug Abuse: None Lives with: Family Family History: None Patient has suicidal ideation: No Patient has homicidal ideation: No - Past Medical History Cardiac Medical History: Reports: Hx Hypercholesterolemia, Hx Hypertension Denies: Hx Coronary Artery Disease, Hx Heart Attack Pulmonary Medical History: Reports: Hx Pneumonia Denies: Hx Asthma, Hx Bronchitis, Hx COPD Neurological Medical History: Denies: Hx Cerebrovascular Accident Endocrine Medical History: Reports: Hx Diabetes Mellitus Type 2 Renal/ Medical History: Denies: Hx Peritoneal Dialysis Malignancy Medical History: Reports: Hx Breast Cancer Musculoskeletal Medical History: Reports Hx Arthritis Psychiatric Medical History: Reports: Hx Depression Past Surgical History: Reports: Hx Breast Surgery - L. node on breast, Hx Section - x 1, Hx Hysterectomy, Hx Mastectomy - left breast - Immunizations Hx Diphtheria, Pertussis, Tetanus Vaccination: Yes Hx Pneumococcal Vaccination: 02/13/14 Review of Systems - Review of Systems Notes: Constitutional: denies: Chills, Diaphoresis, Fever, Malaise, Weakness EENT: denies: Eye discharge, Blurred vision, Tearing, Double vision, Nose congestion, Nose discharge, Throat swelling, Mouth pain Cardiovascular: denies: Palpitations, Heart racing, Orthopnea, Dyspnea, Chest pain Respiratory: denies: Cough, Hurts to breathe, Wheezing, Shortness of breath Gastrointestinal:+ for nausea, vomiting, diarrhea and abdominal pain Genitourinary: denies: Burning, Dysuria, Discharge, Frequency, Flank pain, Hematuria Musculoskeletal: denies: Joint pain, Joint swelling, Muscle pain, Muscle stiffness, back pain Hematologic/Lymphatic: denies: Anemia, Easy bleeding, Easy bruising, Blood clots Neurological/Psychological: denies: Confusion, Dementia, Depression, Loss of consciousness Skin: No lesions, no masses, no skin breakdown, no abscesses Physical Exam - Vital signs Vitals: Temp Pulse Resp BP Pulse Ox 98.1 F 82 22 H 140/83 H 96 05/24/18 05:41 05/24/18 05:41 05/24/18 05:41 05/24/18 05:41 05/24/18 05:41 Interpretation: Normal - General General appearance: Appears well, Alert - HEENT Head: Normocephalic, Atraumatic Eyes: Normal Pupils: PERRL - Respiratory Respiratory status: No respiratory distress Chest status: Nontender Breath sounds: Normal Chest palpation: Normal - Cardiovascular Rhythm: Regular Heart sounds: Normal auscultation Murmur: No - Abdominal Inspection: Normal Distension: No distension Bowel sounds: Normal Tenderness: Tender - Mild diffuse tenderness with no guarding or rebound. Organomegaly: No organomegaly - Back Back: Normal, Nontender - Extremities General upper extremity: Normal inspection, Nontender, Normal color, Normal ROM, Normal temperature General lower extremity: Normal inspection, Nontender, Normal color, Normal ROM, Normal temperature, Normal weight bearing. No: Corwin's sign - Neurological Neuro grossly intact: Yes Cognition: Normal Orientation: AAOx4 Dirk Coma Scale Eye Opening: Spontaneous [place] Coma Scale Verbal: Oriented [place] Coma Scale Motor: Obeys Commands [place] Coma Scale Total: 15 Speech: Normal Motor strength normal: LUE, RUE, LLE, RLE Sensory: Normal - Psychological Associated symptoms: Normal affect, Normal mood - Skin Skin Temperature: Warm Skin Moisture: Dry Skin Color: Normal Course - Re-evaluation Re-evalutation: 05/24/18 08:25 Well-appearing in no acute distress. Abdomen fairly benign. Labs are within normal limits. Will add culture to the urine. X-ray does not reveal any signs of obstruction. Chest x-ray does not show any signs of pneumonia. At this time we will just treat symptomatically for a gastroenteritis. Patient has been given strict and instructions to return for repeat evaluation in 24 hours if sy mptoms are worsening. We will give her some medication for nausea. We will give her some medication for some of the cramping. Patient has been instructed that if she develops any significant bloody diarrhea that she may need to be on antibiotics. Laboratory 05/24/18 05/24/18 05/24/18 06:35 06:35 06:35 WBC 8.4 RBC 4.64 Hgb 14.2 Hct 41.4 MCV 89 MCH 30.5 MCHC 34.2 RDW 14.7 H Plt Count 206 Seg Neutrophils % 78.9 H Lymphocytes % 11.9 L Monocytes % 6.9 Eosinophils % 1.6 Basophils % 0.7 Absolute Neutrophils 6.6 Absolute Lymphocytes 1.0 Absolute Monocytes 0.6 Absolute Eosinophils 0.1 Absolute Basophils 0.1 Sodium 139.4 Potassium 4.0 Chloride 103 Carbon Dioxide 30 Anion Gap 6 BUN 15 Creatinine 1.13 Est GFR ( Amer) > 60 Est GFR (Non-Af Amer) 49 L Glucose 273 H Calcium 9.9 Total Bilirubin 0.8 Direct Bilirubin 0.3 Neonat Total Bilirubin Not Reportable Neonat Direct Bilirubin Not Reportable Neonat Indirect Bili Not Reportable AST 35 ALT 37 Alkaline Phosphatase 78 Troponin I Total Protein 6.7 Albumin 3.6 Lipase Urine Color DAVIDE Urine Appearance TURBID Urine pH 5.0 Ur Specific [place] 1.024 Urine Protein 100 H Urine Glucose (UA) >=500 H Urine Ketones 20 H Urine Blood NEGATIVE Urine Nitrite NEGATIVE Urine Bilirubin NEGATIVE Urine Urobilinogen 2.0 H Ur Leukocyte Esterase TRACE H Urine WBC (Auto) 15 Urine RBC (Auto) 9 U Hyaline Cast (Auto) 13 Urine Bacteria (Auto) 2+ Squamous Epi Cells Auto 72 Urine Mucus (Auto) MANY Urine Ascorbic Acid NEGATIVE 05/24/18 05/24/18 06:35 06:35 WBC RBC Hgb Hct MCV MCH MCHC RDW Plt Count Seg Neutrophils % Lymphocytes % Monocytes % Eosinophils % Basophils % Absolute Neutrophils Absolute Lymphocytes Absolute Monocytes Absolute Eosinophils Absolute Basophils Sodium Potassium Chloride Carbon Dioxide Anion Gap BUN Creatinine Est GFR ( Amer) Est GFR (Non-Af Amer) Glucose Calcium Total Bilirubin Direct Bilirubin Neonat Total Bilirubin Neonat Direct Bilirubin Neonat Indirect Bili AST ALT Alkaline Phosphatase Troponin I < 0.012 Total Protein Albumin Lipase 207.8 Urine Color Urine Appearance Urine pH Ur Specific [place] Urine Protein Urine Glucose (UA) Urine Ketones Urine Blood Urine Nitrite Urine Bilirubin Urine Urobilinogen Ur Leukocyte Esterase Urine WBC (Auto) Urine RBC (Auto) U Hyaline Cast (Auto) Urine Bacteria (Auto) Squamous Epi Cells Auto Urine Mucus (Auto) Urine Ascorbic Acid Acute Abdomen Series 05/24/18 07:15 IMPRESSION: No acute findings. - Vital Signs Vital signs: Temp Pulse Resp BP Pulse Ox 98.1 F 82 22 H 140/83 H 96 05/24/18 05:41 05/24/18 05:41 05/24/18 05:41 05/24/18 05:41 05/24/18 05:41 - Laboratory Result Diagrams: 05/24/18 06:35 05/24/18 06:35 Laboratory results interpreted by me: 05/24/18 05/24/18 05/24/18 06:35 06:35 06:35 RDW 14.7 H Seg Neutrophils % 78.9 H Lymphocytes % 11.9 L Est GFR (Non-Af Amer) 49 L Glucose 273 H Urine Protein 100 H Urine Glucose (UA) >=500 H Urine Ketones 20 H Urine Urobilinogen 2.0 H Ur Leukocyte Esterase TRACE H Discharge - Discharge Clinical Impression: Abdominal pain Qualifiers: Abdominal location: generalized Qualified Code(s): R10.84 - Generalized abdominal pain Diarrhea Qualifiers: Diarrhea type: unspecified type Qualified Code(s): R19.7 - Diarrhea, unspecified Condition: Good Disposition: HOME, SELF-CARE Instructions: Abdominal Pain ([facility]), Diarrhea, Nonspecific ([facility]) Additional Instructions: In the event that your pain is getting worse over the next 24 hours please return. If you notice that there is blood in the diarrhea, you develop high fevers, worsening symptoms or concerns please return Prescriptions: Dicyclomine HCl [Bentyl 10 mg Capsule] 1 cap PO TID PRN 7 Days #21 cap PRN Reason: Abdominal Cramping Ondansetron [Zofran Odt 4 mg Tablet] 1 - 2 tab PO Q4H PRN #15 tab.rapdis PRN Reason: For Nausea/Vomiting Referrals: JOSH CALL MD [Primary Care Provider] - 05/25/18
--- NOTE | 2018-05-24 07:50 | RADIOLOGY REPORT (SQ) ---
EXAM DESCRIPTION: XR ABDOMEN SUPINE AND ERECT WITH CHEST (ABD ACUTE SERIES) COMPLETED DATE/TME: 05/24/2018 07:15 CLINICAL HISTORY: 58 years Female, abd pain Comparison: CT, 03/14/17. NUMBER OF VIEWS/TECHNIQUE: 3 LIMITATIONS: None. FINDINGS: Intestinal gas pattern is within normal limits. Paucity of bowel gas. Scattered air-fluid levels of the transverse colon suggest nonspecific fluid retention. No suspicious calcification. Grossly intact skeletal structures. No acute cardiopulmonary findings. IMPRESSION: No acute findings.
[2018-05-24] MEDS ORDERED: KETOROLAC TROMETHAMINE INJ/PF 30 MG/1 ML SDV IV ONE (08:23)
[2018-05-24] MEDS ORDERED: HYDROCODONE/ACETAMINOPHEN 5-325 MG TABLET PO PRN (08:23)
[2018-05-24 09:00] VITALS: BP 177/90
--- NOTE | 2018-05-24 10:58 | EKG REPORT ---
SEVERITY:- NORMAL ECG - SINUS RHYTHM : Confirmed by: Jimmy Quintanilla 24-May-2018 10:57:31
== END 2018-05-24 09:08 | disposition home or self-care (01) ==
LOC: ER 05:36
DX: R10.84 Generalized abdominal pain (principal); R19.7 Diarrhea, unspecified; R11.2 Nausea with vomiting, unspecified; R10.9 Unspecified abdominal pain; I10 Essential (primary) hypertension; E11.9 Type 2 diabetes mellitus without complications
CPT/HCPCS: 93005; 99284; 96361; 96374; 96375; 36415; 87086; 83690; 85025; 80053; 81001; 84484; 74022; 93010; J1885; J2405; J7030; S0028; A9270

== ENCOUNTER 2018-07-09 12:28 | Emergency (ER) | payer MEDICARE, MEDICAID ==
[2018-07-09] MEDS ORDERED: HYDROCHLOROTHIAZIDE 25 MG TABLET PO ONE (13:05)
[2018-07-09] MEDS ORDERED: LISINOPRIL 10 MG TABLET PO ONE (13:05)
--- NOTE | 2018-07-09 13:08 | ER Document Report ---
ED General - General Chief Complaint: Vertigo Stated Complaint: VERTIGO Time Seen by Provider: 07/09/18 12:56 Primary Care Provider: JOSH CALL MD [Primary Care Provider] - Follow up as needed Information source: Patient Notes: Patient is a 58-year-old female that presents today with the onset of "the room spinning" starting this morning when she awoke. She denies any headache, blurry vision, neck pain, chest pain, palpitations, or focal weakness or numbness. She states some nausea without vomiting. She denies any abdominal pain, dysuria, or flank pain. Past medical history as recorded including 3 episodes of vertigo in the past according the patient. Patient is on multiple medications including 2 blood pressure medications. She states she has not taken his blood pressure medications for greater than 48 hours. She states she did take 1 dose of the Coreg this morning. TRAVEL OUTSIDE OF THE [place] IN LAST 30 DAYS: No - Related Data Allergies/Adverse Reactions: insulin glargine, human recombin. a [From Lantus] Adverse Reaction (Verified 07/09/18 12:41) RASH Past Medical History - Social History Smoking Status: Unknown if Ever Smoked Family History: None Patient has suicidal ideation: No Patient has homicidal ideation: No - Past Medical History Cardiac Medical History: Reports: Hx Hypercholesterolemia, Hx Hypertension Denies: Hx Coronary Artery Disease, Hx Heart Attack Pulmonary Medical History: Reports: Hx Pneumonia Denies: Hx Asthma, Hx Bronchitis, Hx COPD Neurological Medical History: Denies: Hx Cerebrovascular Accident Endocrine Medical History: Reports: Hx Diabetes Mellitus Type 2 Renal/ Medical History: Denies: Hx Peritoneal Dialysis Malignancy Medical History: Reports: Hx Breast Cancer Musculoskeletal Medical History: Reports Hx Arthritis Psychiatric Medical History: Reports: Hx Depression Past Surgical History: Reports: Hx Breast Surgery - L. node on breast, Hx Section - x 1, Hx Hysterectomy, Hx Mastectomy - left breast - Immunizations Hx Diphtheria, Pertussis, Tetanus Vaccination: Yes Hx Pneumococcal Vaccination: 02/13/14 Review of Systems - Review of Systems Constitutional: denies: Fever EENT: denies: Eye discharge, Nose discharge Cardiovascular: denies: Chest pain, Palpitations Respiratory: denies: Short of breath Gastrointestinal: denies: Vomiting Genitourinary: denies: Dysuria Musculoskeletal: denies: Leg swelling Skin: Other - no hives. denies: Rash Neurological/Psychological: Other - no slurred speech -: Yes All other systems reviewed and negative Physical Exam - Vital signs Vitals: Resp Pulse Ox 19 97 07/09/18 12:33 07/09/18 12:33 Notes: Reviewed vital signs and nursing note as charted by RN. CONSTITUTIONAL: Alert and oriented and responds appropriately to questions. Well-appearing; well-nourished HEAD: Normocephalic; atraumatic EYES: PERRL; no nystagmus noted ENT: Normal nose; no rhinorrhea; moist mucous membranes; pharynx without lesions noted NECK: Supple without meningismus; non-tender; no carotid bruit; no cervical lymphadenopathy, no masses CARD: Regular rate and rhythm; no murmurs; symmetric distal pulses RESP: Normal chest excursion without splinting or tachypnea; breath sounds clear and equal bilaterally ABD/GI: Normal bowel sounds; elevated BMI; soft, non-tender BACK: The back appears normal and is non-tender to palpation EXT: Normal ROM in all joints; non-tender to palpation; no edema SKIN: No acute lesions noted NEURO: CN 2-12 intact; 5/5 bilateral upper and lower extremity strength with sensation intact to light touch; normal [id number] and rapid alternating movements PSYCH: The patient's mood and manner are appropriate. Grooming and personal hygiene are appropriate. Course - Re-evaluation Re-evalutation: 07/09/18 13:08 Given the history and physical examination, I will provide the patient's home dose of blood pressure medications as well as a dose of Valium. We will order orthostatics, obtain an EKG, basic labs, cardiac labs, and obtain CT scan of the head. Patient denies any and all headache or chest pain. No focal neurological deficits or nystagmus noted. History of vertigo x3. Blood pressure is elevated but the patient has been noncompliant. I would like to evaluate the possibility of an intracerebral lesion, bleed, cardiac equivalent, dehydration, or other cause of the possible vertigo-like symptoms. 07/09/18 13:13 EKG shows a heart of 73, normal sinus rhythm, normal axis, no ST elevation or depression. Inverted T wave in lead III 07/09/18 14:[address] scan of the head as recorded. Patient still has no focal neurological deficits. We have provided the patient's blood pressure medications. We will obtain an MRI for the possibility of a posterior stroke. 07/09/18 16:15 Repeat blood pressure is improved. I had just restarted the patient's home medications. Patient is supposed to take another dose of the beta-yessy shortly this evening. Patient still denies any headache. No chest pain. She still has no focal neurological deficits. MRI of the brain is unremarkable. Patient states she has a blood pressure medications at home but has not taken them over the last 2 days. Patient does have a primary care doctor. Given the above history and physical examination, with repeat vital signs, restarting the patient on a blood pressure medications, repeat neurologic examinations that are unremarkable. With a normal CT scan of the head, MRI, with EKG as recorded, currently pain-free, I do not believe that the patient requires any further imaging or laboratory work at this time. Patient understands to follow-up with her primary care physician. Strict return precautions have been explained. - Vital Signs Vital signs: Temp Pulse Resp BP Pulse Ox 98.7 F 74 22 H 198/108 H 100 07/09/18 13:04 07/09/18 13:04 07/09/18 16:01 07/09/18 16:13 07/09/18 16:01 - Laboratory Result Diagrams: 07/09/18 12:35 07/09/18 12:35 Laboratory results interpreted by me: 07/09/18 07/09/18 12:35 12:35 RDW 14.4 H Glucose 150 H Discharge - Discharge Clinical Impression: Dizziness, Elevated blood pressure reading Condition: Good Disposition: HOME, SELF-CARE Additional Instructions: Please make sure that you take your blood pressure medications as directed. Please make sure you return immediately for any headache, blurry vision, chest pain, neck pain, weakness or numbness, or gait imbalance. Please follow-up with your primary care physician as we have discussed. Prescriptions: Meclizine HCl 25 mg PO Q8 3 Days #12 tab.chew Referrals: JOSH CALL MD [Primary Care Provider] - Follow up as needed
[2018-07-09 13:14] LABS: ABSOLUTE EOSINOPHILS # (AUTO) 0.2 10^3/uL (0.0-0.6); ABSOLUTE LYMPHOCYTES (AUTO) 2.4 10^3/uL (0.5-4.7); ABSOLUTE MONOCYTES (AUTO) 0.5 10^3/uL (0.1-1.4); ABSOLUTE NEUT (AUTO) 2.8 10^3/uL (1.7-8.2); BASOPHILS % (AUTO) 0.4 % (0-2); EOSINOPHILS % (AUTO) 3.3 % (0-6); LYMPHOCYTES % (AUTO) 40.4 % (13-45); MEAN CORPUSCULAR HEMOGLOBIN 29.1 pg (27.0-33.4); MEAN CORPUSCULAR HGB CONC 32.5 g/dL (32.0-36.0); MEAN CORPUSCULAR VOLUME 90 fl (80-97); MONOCYTES % (AUTO) 8.5 % (3-13); PLATELET COUNT 213 10^3/uL (150-450); RED BLOOD COUNT 4.47 10^6/uL (3.72-5.28); RED CELL DISTRIBUTION WIDTH 14.4 % (11.5-14.0); SEGMENTED NEUTROPHILS % (AUTO) 47.4 % (42-78); TOTAL CELLS COUNTED % (AUTO) 100 %
[2018-07-09 13:15] LABS: ANION GAP 9 (5-19); BLOOD UREA NITROGEN 15 mg/dL (7-20); CALCIUM 9.2 mg/dL (8.4-10.2); CARBON DIOXIDE 30 mmol/L (22-30); CHLORIDE 105 mmol/L (98-107); GLUCOSE 150 mg/dL (75-110); POTASSIUM 4.3 mmol/L (3.6-5.0)
--- NOTE | 2018-07-09 13:38 | RADIOLOGY REPORT (SQ) ---
EXAM DESCRIPTION: CT HEAD WITHOUT COMPLETED DATE/TIME: 07/09/2018 1:26 pm REASON FOR STUDY: 9, vertigo COMPARISON: 04/28/2016 TECHNIQUE: Axial images acquired through the brain without intravenous contrast. Images reviewed wi th bone, brain and subdural windows. Additional sagittal and coronal reconstructions were generated. Images stored on PACS. All CT scanners at this facility use dose modulation, iterative reconstruction, and/or weight based d osing when appropriate to reduce radiation dose to as low as reasonably achievable (ALARA). [facility]: Dose Right [facility]: CareDose [facility]: Dose Right [facility]: Teradose 4D [facility]: [employer] RADIATION DOSE: CT Rad equipment meets quality standard of care and radiation dose reduction techniq ues were employed. CTDIvol: 53.2 mGy. DLP: 1017 mGy-cm. mGy. LIMITATIONS: None. FINDINGS: VENTRICLES: Normal size and contour. CEREBRUM: No masses. No hemorrhage. No midline shift. No evidence for acute infarction. Normal gra y/white matter differentiation. No areas of low density in the white matter. CEREBELLUM: No masses. No hemorrhage. No alteration of density. No evidence for acute infarction. EXTRAAXIAL SPACES: No fluid collections. No masses. ORBITS AND GLOBE: No intra- or extraconal masses. Normal contour of globe without masses. CALVARIUM: No fracture. PARANASAL SINUSES: No fluid or mucosal thickening. SOFT TISSUES: No mass or hematoma. OTHER: No other significant finding. IMPRESSION: No acute intracranial pathology. EVIDENCE OF ACUTE STROKE: NO. COMMENT: Quality ID # [id number]: Final reports with documentation of one or more dose reduction techniques (e.g., Automated exposure control, adjustment of the mA and/or kV according to patient size, use of iterative reconstruction technique) TECHNICAL DOCUMENTATION: JOB ID: [id number] [employer]- All Rights Reserved Reading location - IP/workstation name: [email or web address]
--- NOTE | 2018-07-09 14:04 | EKG REPORT ---
SEVERITY:- BORDERLINE ECG - SINUS RHYTHM BORDERLINE T ABNORMALITIES, INFERIOR LEADS : Confirmed by: Arin Ellis MD 09-Jul-2018 14:03:51
--- NOTE | 2018-07-09 15:46 | RADIOLOGY REPORT (SQ) ---
EXAM DESCRIPTION: MRI HEAD WITHOUT COMPLETED DATE/TIME: 07/09/2018 3:29 pm REASON FOR STUDY: 9; vertigo COMPARISON: CT brain, 07/09/2018, MR brain, 04/29/2016 TECHNIQUE: Multiplanar imaging includes non-contrasted T1, T2, FLAIR, and diffusion with ADC map seq uences. Images stored on PACS. LIMITATIONS: None. FINDINGS: ANATOMY: No anomalies. Normal vascular flow voids. Pituitary fossa normal. CSF SPACES: Normal in size and contour. No hemorrhage. CEREBRUM: Sulci and gyri normal in size and contour. Normal white matter signal on FLAIR imaging. No evidence of hemorrhage, mass, or extraaxial fluid collection. POSTERIOR FOSSA: No signal alteration. No hemorrhage. No edema, masses or mass effect. Internal sukhdev tory canals, cerebello-pontine angles, mastoids normal. DIFFUSION IMAGING: Negative for acute or sub-acute infarction. ORBITS: No masses. Globes normal. PARANASAL SINUSES: No fluid levels. Mucosa normal. OTHER: No other significant finding. IMPRESSION: No acute noncontrast MR abnormality of the brain. No evidence of acute diffusion restri cting infarction. EVIDENCE OF ACUTE STROKE: NO. TECHNICAL DOCUMENTATION: JOB ID: [id number] [email or web address]- All Rights Reserved Reading location - IP/workstation name: [email or web address]
[2018-07-09 17:40] VITALS: BP 197/97
== END 2018-07-09 17:40 | disposition home or self-care (01) ==
LOC: ER 12:28
DX: I10 Essential (primary) hypertension (principal); T50.906A Underdosing of unspecified drugs, medicaments and biological substances, initial encounter; Z91.14 Patient's other noncompliance with medication regimen; R42 Dizziness and giddiness; E11.9 Type 2 diabetes mellitus without complications; R11.0 Nausea; Z85.3 Personal history of malignant neoplasm of breast
CPT/HCPCS: 93005; 99284; 36415; 85025; 80048; 84484; 70551; 70450; 93010; A9270

== ENCOUNTER 2018-07-12 09:55 | Day surgery (SDC) | payer MEDICARE, MEDICAID ==
[2018-07-12] MEDS ORDERED: ONDANSETRON HCL INJ/PF 4 MG/2 ML SDV IV ONE (10:15)
--- NOTE | 2018-07-12 10:16 | ER Document Report ---
ED Medical Screen (RME) - General Chief Complaint: Abdominal Pain >50 Stated Complaint: ABDOMINAL PAIN Time Seen by Provider: 07/12/18 10:15 Primary Care Provider: JOSH CALL MD [Primary Care Provider] - Follow up as needed TRAVEL OUTSIDE OF THE [place] IN LAST 30 DAYS: No - HPI Notes: 07/12/18 10:15 Patient is a 58-year-old female with a history of type 2 diabetes, hypertension, hypercholesterolemia who presents complaining of mid to upper abdominal pain that has been present since last night. Patient states the pain is constant does not radiate. She has associated nausea without vomiting or diarrhea. She is urinating normally. Last bowel movement was 2 days ago. No other concerns or complaints. Denies ALBARADO, fever, neck pain, URI, CP, SOB, dysuria, back pain, or rash. I have treated and performed a rapid initial assessment of this patient. A comprehensive ED assessment and evaluation of the patient, analysis of test results and completion of medical decision making process will be conducted by additional ED providers. PHYSICAL EXAMINATION: GENERAL: Well-appearing, well-nourished and in no acute distress. A&Ox4. Answers questions appropriately. LUNGS: Breath sounds clear to auscultation bilaterally and equal. No wheezes rales or rhonchi. HEART: Regular rate and rhythm without murmurs, rubs, gallops. ABDOMEN: Soft, nondistended abdomen. No guarding, no rebound. Normal bowel sounds present. No CVA tenderness bilaterally. + mid abd tenderness (cannot elicit thorough abd exam w/o bed, however). Extremities: No cyanosis, clubbing, or edema b/l. NEUROLOGICAL: Normal speech, normal gait. PSYCH: Normal mood, normal affect. - Related Data Allergies/Adverse Reactions: insulin glargine, human recombin. a [From Lantus] Adverse Reaction (Verified 07/12/18 10:04) RASH Past Medical History - Past Medical History Cardiac Medical History: Reports: Hx Hypercholesterolemia, Hx Hypertension Denies: Hx Coronary Artery Disease, Hx Heart Attack Pulmonary Medical History: Reports: Hx Pneumonia Denies: Hx Asthma, Hx Bronchitis, Hx COPD Neurological Medical History: Denies: Hx Cerebrovascular Accident Endocrine Medical History: Reports: Hx Diabetes Mellitus Type 2 Renal/ Medical History: Denies: Hx Peritoneal Dialysis Malignancy Medical History: Reports: Hx Breast Cancer Musculoskeltal Medical History: Reports Hx Arthritis Psychiatric Medical History: Reports: Hx Depression Past Surgical History: Reports: Hx Breast Surgery - L. node on breast, Hx Section - x 1, Hx Hysterectomy, Hx Mastectomy - left breast - Immunizations Hx Diphtheria, Pertussis, Tetanus Vaccination: Yes Influenza Administration Date for 11/2016 - 04/2017 Season: 11/13/16 Physical Exam - Vital signs Vitals: Temp Pulse Resp BP Pulse Ox 98.8 F 79 18 162/102 H 95 07/12/18 10:12 07/12/18 10:12 07/12/18 10:12 07/12/18 10:12 07/12/18 10:12 Course - Vital Signs Vital signs: Temp Pulse Resp BP Pulse Ox 98.8 F 79 18 162/102 H 95 07/12/18 10:12 07/12/18 10:12 07/12/18 10:12 07/12/18 10:12 07/12/18 10:12 Doctor's Discharge - Discharge Referrals: JOSH CALL MD [Primary Care Provider] - Follow up as needed
[2018-07-12 10:56] LABS: ABSOLUTE BASOPHILS # (AUTO) 0.1 10^3/uL (0.0-0.2); ABSOLUTE EOSINOPHILS # (AUTO) 0.1 10^3/uL (0.0-0.6); ABSOLUTE LYMPHOCYTES (AUTO) 2.2 10^3/uL (0.5-4.7); ABSOLUTE MONOCYTES (AUTO) 0.7 10^3/uL (0.1-1.4); BASOPHILS % (AUTO) 0.9 % (0-2); EOSINOPHILS % (AUTO) 1.3 % (0-6); HEMATOCRIT 38.5 % (36.0-47.0); HEMOGLOBIN 12.9 g/dL (12.0-15.5); MEAN CORPUSCULAR HEMOGLOBIN 29.7 pg (27.0-33.4); MEAN CORPUSCULAR HGB CONC 33.5 g/dL (32.0-36.0); MEAN CORPUSCULAR VOLUME 89 fl (80-97); MONOCYTES % (AUTO) 7.3 % (3-13); PLATELET COUNT 204 10^3/uL (150-450); RED BLOOD COUNT 4.33 10^6/uL (3.72-5.28); RED CELL DISTRIBUTION WIDTH 14.3 % (11.5-14.0); SEGMENTED NEUTROPHILS % (AUTO) 66.5 % (42-78); TOTAL CELLS COUNTED % (AUTO) 100 %
[2018-07-12 10:59] LABS: APPEARANCE,URINE CLEAR; BILIRUBIN,URINE NEGATIVE (NEGATIVE); COLOR,URINE YELLOW; GLUCOSE, URINE 50 mg/dL (NEGATIVE); KETONES,URINE TRACE mg/dL (NEGATIVE); LEUKOCYTE ESTERASE,URINE NEGATIVE (NEGATIVE); NITRITE,URINE NEGATIVE (NEGATIVE); PROTEIN,URINE NEGATIVE (NEGATIVE); URINE SPECIFIC GRAVITY 1.014; UROBILINOGEN,URINE NEGATIVE mg/dL (<2.0)
--- NOTE | 2018-07-12 11:24 | ER Document Report ---
ED General - General Chief Complaint: Abdominal Pain >50 Stated Complaint: ABDOMINAL PAIN Time Seen by Provider: 07/12/18 10:15 Primary Care Provider: JOSH CALL MD [Primary Care Provider] - Follow up as needed Notes: 58-year-old lady presents with upper abdominal pain and discomfort since last night, associated with some nausea, and mild back pain. Not ripping or tearing not abrupt onset. Associated with anorexia. Denies fever, denies alcohol. No urinary symptoms other than mild frequency, is a diabetic. TRAVEL OUTSIDE OF THE [place] IN LAST 30 DAYS: No - Related Data Allergies/Adverse Reactions: insulin glargine, human recombin. a [From Lantus] Adverse Reaction (Verified 07/12/18 10:04) RASH Past Medical History - Social History Smoking Status: Never Smoker Frequency of alcohol use: None Drug Abuse: None Family History: None Patient has suicidal ideation: No Patient has homicidal ideation: No - Past Medical History Cardiac Medical History: Reports: Hx Hypercholesterolemia, Hx Hypertension Denies: Hx Coronary Artery Disease, Hx Heart Attack Pulmonary Medical History: Reports: Hx Pneumonia Denies: Hx Asthma, Hx Bronchitis, Hx COPD Neurological Medical History: Denies: Hx Cerebrovascular Accident Endocrine Medical History: Reports: Hx Diabetes Mellitus Type 2 Renal/ Medical History: Denies: Hx Peritoneal Dialysis Malignancy Medical History: Reports: Hx Breast Cancer Musculoskeletal Medical History: Reports Hx Arthritis Psychiatric Medical History: Reports: Hx Depression Past Surgical History: Reports: Hx Breast Surgery - L. node on breast, Hx Section - x 1, Hx Hysterectomy, Hx Mastectomy - left breast - Immunizations Hx Diphtheria, Pertussis, Tetanus Vaccination: Yes Hx Pneumococcal Vaccination: 02/13/14 Review of Systems - Review of Systems Notes: REVIEW OF SYSTEMS GEN: Denies fever, chills, weight loss ENT: Denies sore throat, nasal discharge, ear pain EYES: Denies blurry vision, eye pain, discharge CV: Denies chest pain, palpitations, edema RESP: Denies cough, shortness of breath, wheezing GI: Aminal pain vomiting MSK: Denies joint pain/swelling, edema, SKIN: Denies rash, skin lesions LYMPH: Denies swollen glands/lymph nodes NEURO: Denies headache, focal weakness or numbness, dizziness PSYCH: Denies depression, suicidal or homicidal ideation PHYSICAL EXAMINATION General: No acute distress, well-nourished Head: Atraumatic, normocephalic ENT: Mouth normal, oropharynx moist, no exudates or tonsillar enlargement Eyes: Conjunctiva normal, pupils equal, lids normal Neck: No JVD, supple, no guarding CVS: Normal rate, regular rhythm, no murmurs Resp: No resp distress, equal and normal breath sounds bilaterally GI: Right upper quadrant tenderness Ext: No deformities, no edema, normal range of motion in upper and lower ext Back: No CVA or midline TTP Skin: No rash, warm Lymphatic: No lymphadeopathy noted Neuro: Awake, alert. Face symmetric. GCS 15. Physical Exam - Vital signs Vitals: Temp Pulse Resp BP Pulse Ox 98.8 F 79 18 162/102 H 95 07/12/18 10:12 07/12/18 10:12 07/12/18 10:12 07/12/18 10:12 07/12/18 10:12 Course - Re-evaluation Re-evalutation: 07/12/18 12:40 Upper abdominal pain. Has already gotten tramadol by primary care and Phenergan at triage prior to my evaluation. Labs are sent from triage. I ordered a CT as well. CT appears to show dilated gallbladder with stones and pericholecystic fluid consistent with her presentation. I spoke with Dr. cordova at 1240 and asked him to see the patient for acute cholecystitis. I concurrently ordered right upper quadrant ultrasound through radiology as well. On reassessment the patient is c omfortable and not requiring further doses of pain meds. - Vital Signs Vital signs: Temp Pulse Resp BP Pulse Ox 98.8 F 79 18 162/102 H 95 07/12/18 10:12 07/12/18 10:12 07/12/18 10:12 07/12/18 10:12 07/12/18 10:12 - Laboratory Result Diagrams: 07/12/18 10:30 07/12/18 10:30 Laboratory results interpreted by me: 07/12/18 07/12/18 07/12/18 10:30 10:30 10:30 RDW 14.3 H Carbon Dioxide 32 H Est GFR (Non-Af Amer) 55 L Glucose 188 H AST 46 H Urine Glucose (UA) 50 H Urine Ketones TRACE H - Diagnostic Test Radiology reviewed: Image reviewed, Reports reviewed Discharge - Discharge Clinical Impression: Acute cholecystitis Condition: Good Disposition: ADMITTED INPATIENT Admitting Provider: Surgicalist Unit Admitted: Surgical Floor Referrals: JOSH CALL MD [Primary Care Provider] - Follow up as needed
[2018-07-12 11:35] LABS: ALANINE AMINOTRANSFERASE 24 U/L (9-52); ALBUMIN 3.6 g/dL (3.5-5.0); ALKALINE PHOSPHATASE 67 U/L (38-126); ANION GAP 7 (5-19); ASPARTATE AMINO TRANSFERASE 46 U/L (14-36); BILIRUBIN,DIRECT 0.3 mg/dL (0.0-0.4); BILIRUBIN,TOTAL 0.7 mg/dL (0.2-1.3); BLOOD UREA NITROGEN 11 mg/dL (7-20); CARBON DIOXIDE 32 mmol/L (22-30); CHLORIDE 102 mmol/L (98-107); GLUCOSE 188 mg/dL (75-110); LIPASE 182.2 U/L (23-300); POTASSIUM 3.9 mmol/L (3.6-5.0); SODIUM 140.5 mmol/L (137-145); TOTAL PROTEIN 6.9 g/dL (6.3-8.2)
--- NOTE | 2018-07-12 13:07 | RADIOLOGY REPORT (SQ) ---
EXAM DESCRIPTION: CT ABD/PELVIS WITH IV ONLY COMPLETED DATE/TIME: 07/12/2018 12:12 pm REASON FOR STUDY: Upper abdominal pain COMPARISON: CT abdomen pelvis 03/14/2017, 01/05/2015 TECHNIQUE: CT scan of the abdomen and pelvis performed using helical scanning technique with dynamic intravenous contrast injection. No oral contrast. Images reviewed with lung, soft tissue, and bone windows. Reconstructed coronal and sagittal MPR images reviewed. Delayed images for evaluation of the urinary system also acquired. All images stored on PACS. All CT scanners at this facility use dose modulation, iterative reconstruction, and/or weight based d osing when appropriate to reduce radiation dose to as low as reasonably achievable (ALARA). [facility]: Dose Right [facility]: CareDose [facility]: Dose Right [facility]: Teradose 4D [facility]: [employer] CONTRAST TYPE AND DOSE: contrast/concentration: Isovue 350.00 mg/ml; Total Contrast Delivered: 100.0 ml; Total Saline Delivered: 70.0 ml RENAL FUNCTION: Creatinine 1.0 RADIATION DOSE: CT Rad equipment meets quality standard of care and radiation dose reduction techniq ues were employed. CTDIvol: 20.8 - 21.1 mGy. DLP: 2464 mGy-cm.. LIMITATIONS: None. FINDINGS: LOWER CHEST: No significant findings. No nodules or infiltrates. LIVER: Normal size. No masses. No dilated ducts. SPLEEN: Normal size. No focal lesions. PANCREAS: No masses. No significant calcifications. No adjacent inflammation or peripancreatic fluid collections. Pancreatic duct not dilated. GALLBLADDER: Gallbladder is distended. There is pericholecystic fluid between the gallbladder and li giselle on coronal images 26-33. Punctate calcifications at the gallbladder fundus may represent adenomy osis or tiny gallstones. Findings discussed with Dr. Shipman in the emergency room ADRENAL GLANDS: No significant masses or asymmetry. RIGHT KIDNEY AND URETER: No solid masses. No significant calcifications. No hydronephrosis or hyd roureter. LEFT KIDNEY AND URETER: No solid masses. No significant calcifications. No hydronephrosis or hydr oureter. AORTA AND VESSELS: No aneurysm. No dissection. Renal arteries, SMA, celiac without stenosis. RETROPERITONEUM: No retroperitoneal adenopathy, hemorrhage or masses. BOWEL AND PERITONEAL CAVITY: No CT evidence of bowel obstruction. No free intraperitoneal air. Trac e pelvic cul-de-sac fluid APPENDIX: Normal. PELVIS: No mass. No free fluid. Normal bladder. Post hysterectomy ABDOMINAL WALL: No masses. No hernias. BONES: No significant or acute findings. OTHER: No other significant finding. IMPRESSION: Pericholecystic fluid, question acute cholecystitis. Punctate increased density of the gallbladder fundus could represent stones or adenomyosis TECHNICAL DOCUMENTATION: JOB ID: [id number] Quality ID # [id number]: Final reports with documentation of one or more dose reduction techniques (e.g., Au tomated exposure control, adjustment of the mA and/or kV according to patient size, use of iterative reconstruction technique) 2010 [employer]- All Rights Reserved Reading location - IP/workstation name: [email or web address]
[2018-07-12] MEDS ORDERED: NORMAL SALINE 1000 ML 1,000 ML IV ONE (13:25)
--- NOTE | 2018-07-12 13:32 | PDOC H&P ---
History of Present Illness Admission Date/PCP: 07/12/18 12:51 JOSH CALL Patient complains of: Abdominal pain History of Present Illness: JESSIE BELL is a 58 year old female presenting with 1 day history of severe epigastric abdominal pain along with nausea but no emesis. No fevers or chills. No jaundice. No diarrhea. Patient is diabetic. Past Medical History Cardiac Medical History: Reports: Hyperlipidema, Hypertension Denies: Coronary Artery Disease, Myocardial Infarction Pulmonary Medical History: Reports: Pneumonia Denies: Asthma, Bronchitis, Chronic Obstructive Pulmonary Disease (COPD) Endocrine Medical History: Reports: Diabetes Mellitus Type 2 Malignancy Medical History: Reports: Breast Cancer - Left-sided breast cancer status post lumpectomy and radiation Musculoskeltal Medical History: Reports: Arthritis Psychiatric Medical History: Reports: Depression Hematology: Reports: Anemia Past Surgical History Past Surgical History: Reports: Section - x 1, Hysterectomy, Mastectomy - left breast Social History Smoking Status: Never Smoker Frequency of Alcohol Use: None Hx Recreational Drug Use: No Hx Prescription Drug Abuse: No Family History Family History: None Parental Family History Reviewed: Yes - Diabetes and hypertension Children Family History Reviewed: Yes - Daughter with cerebrovascular accident Sibling(s) Family History Reviewed.: Yes - Sister with diabetes and hypertension Medication/Allergy Home Medications: Allopurinol [Zyloprim 300 mg Tablet] 300 mg PO DAILY 04/28/16 Aspirin [Aspirin 81 mg Chewable Tablet] 81 mg PO DAILY 04/28/16 Carvedilol [Coreg 25 mg Tablet] 1 tab PO Q12 04/28/16 Cholecalciferol (Vitamin D3) [D3-2000] 2,000 unit PO DAILY 04/28/16 Gemfibrozil [Lopid 600 mg Tablet] 600 mg PO BID 04/28/16 Glipizide [Glucotrol 10 mg Tablet] 10 mg PO BID 04/28/16 Ibuprofen [Motrin 800 mg Tablet] 800 mg PO Q8HP PRN 04/28/16 Lisinopril/Hydrochlorothiazide [Lisinopril-Hctz 20-25 mg Tab] 1 each PO DAILY 04/28/16 [place]-3/Dha/Epa/Fish Oil [Fish Oil 1,000 mg Softgel] 1 cap PO DAILY 04/28/16 Sitagliptin Phos/Metformin HCl [Janumet 50-1,000 mg Tablet] 1 tab PO BID 04/28/16 Tamoxifen Citrate [Nolvadex 10 mg Tablet] 10 mg PO BID 04/28/16 Meclizine HCl [Antivert 25 mg Tablet] 25 mg PO Q8HP PRN #60 tablet 04/29/16 Pantoprazole Sodium [Protonix] 40 mg PO DAILY #30 tablet. 03/14/17 Dicyclomine HCl [Bentyl 10 mg Capsule] 1 cap PO TID PRN 7 Days #21 cap 05/24/18 Ondansetron [Zofran Odt 4 mg Tablet] 1 - 2 tab PO Q4H PRN #15 tab.rapdis 05/24/18 Meclizine HCl 25 mg PO Q8 3 Days #12 tab.chew 07/09/18 Allergies/Adverse Reactions: insulin glargine, human recombin. a [From Lantus] Adverse Reaction (Verified 07/12/18 10:04) RASH Review of Systems All systems: reviewed and no additional remarkable complaints except as stated Respiratory: PRESENT: other - Patient has sleep apnea but has been unable to afford her CPAP machine. Gastrointestinal: PRESENT: as per HPI Musculoskeletal: PRESENT: other - Chronic knee pain secondary to osteoarthritis Physical Exam Vital Signs: Temp Pulse Resp BP Pulse Ox 98.8 F 79 18 162/102 H 95 07/12/18 10:12 07/12/18 10:12 07/12/18 10:12 07/12/18 10:12 07/12/18 10:12 Intake & Output 07/11/18 07/12/18 07/13/18 06:59 06:59 06:59 Weight 127 kg General appearance: PRESENT: no acute distress, cooperative Eye exam: PRESENT: conjunctiva pink Neck exam: PRESENT: other - Supple with no masses and no tenderness Respiratory exam: PRESENT: clear to auscultation panda Cardiovascular exam: PRESENT: RRR GI/Abdominal exam: PRESENT: other - Soft, obese, marked tenderness to palpation in the right upper quadrant with a positive Hurtado sign. Neurological exam: PRESENT: alert, awake Psychiatric exam: PRESENT: appropriate affect Skin exam: PRESENT: warm Results Laboratory Results: 07/12/18 10:30 07/12/18 10:30 07/12/18 07/12/18 07/12/18 10:30 10:30 10:30 WBC 9.0 RBC 4.33 Hgb 12.9 Hct 38.5 MCV 89 MCH 29.7 MCHC 33.5 RDW 14.3 H Plt Count 204 Seg Neutrophils % 66.5 Lymphocytes % 24.0 Monocytes % 7.3 Eosinophils % 1.3 Basophils % 0.9 Absolute Neutrophils 6.0 Absolute Lymphocytes 2.2 Absolute Monocytes 0.7 Absolute Eosinophils 0.1 Absolute Basophils 0.1 Sodium 140.5 Potassium 3.9 Chloride 102 Carbon Dioxide 32 H Anion Gap 7 BUN 11 Creatinine 1.03 Est GFR ( Amer) > 60 Est GFR (Non-Af Amer) 55 L Glucose 188 H Calcium 9.0 Total Bilirubin 0.7 AST 46 H ALT 24 Alkaline Phosphatase 67 Total Protein 6.9 Albumin 3.6 Lipase 182.2 Urine Color YELLOW Urine Appearance CLEAR Urine pH 5.0 Ur Specific [place] 1.014 Urine Protein NEGATIVE Urine Glucose (UA) 50 H Urine Ketones TRACE H Urine Blood NEGATIVE Urine Nitrite NEGATIVE Ur Leukocyte Esterase NEGATIVE Urine WBC (Auto) 1 Urine RBC (Auto) 0 Impressions: Abdomen/Pelvis CT 07/12/18 11:21 IMPRESSION: Pericholecystic fluid, question acute cholecystitis. Punctate increased density of the gallbladder fundus could represent stones or adenomyosis Assessment & Plan - Diagnosis (1) Acute cholecystitis Is this a current diagnosis for this admission?: Yes Plan: History exam and CT scan all consistent with acute cholecystitis. We will plan laparoscopic cholecystectomy, possible open cholecystectomy. I have discussed with the patient the risk and benefits of the procedure including risk of bile duct injury, intestinal injury, bleeding, infection, conversion open procedure, cardiopulmonary risks and postcholecystectomy diarrhea. Patient understands and agrees to proceed.
[2018-07-12] MEDS ORDERED: BUPIVACAINE HCL 0.25 % INJ/PF (2.5 MG/1 ML) 30 ML VIAL ONE (13:40)
[2018-07-12] MEDS ORDERED: ONDANSETRON HCL INJ/PF 4 MG/2 ML SDV IV PRN (14:02)
[2018-07-12] MEDS ORDERED: OXYCODONE-ACETAMINOPHEN 5-325 MG TABLET PO PRN ×3 (14:02→17:40)
[2018-07-12] MEDS ORDERED: PROMETHAZINE HCL INJ 25 MG/1 ML VIAL IV PRN (14:02)
[2018-07-12] MEDS ORDERED: MORPHINE SULFATE 10 MG/ML INJ IV PRN (14:02)
[2018-07-12] MEDS ORDERED: MEPERIDINE HCL/PF INJ 25 MG/1 ML DISP.SYRIN IV PRN (14:02)
[2018-07-12] MEDS ORDERED: DIPHENHYDRAMINE HCL 50 MG/ML VIAL IV PRN (14:02)
[2018-07-12] MEDS ORDERED: FENTANYL CITRATE INJ/PF 100 MCG/2 ML AMPUL IV PRN ×3 (14:02)
[2018-07-12] MEDS ORDERED: KETOROLAC TROMETHAMINE 60 MG/2 ML SDV ONE (14:04)
[2018-07-12] MEDS ORDERED: FENTANYL CITRATE INJ/PF 100 MCG/2 ML AMPUL ONE ×2 (14:04→14:05)
[2018-07-12] MEDS ORDERED: MIDAZOLAM 2 MG/2 ML INJ ONE (14:04)
[2018-07-12] MEDS ORDERED: DEXAMETHASONE SOD PHOSPHATE INJ 4 MG/1 ML VIAL ONE (14:05)
[2018-07-12] MEDS ORDERED: ONDANSETRON HCL INJ/PF 4 MG/2 ML SDV ONE (14:05)
[2018-07-12] MEDS ORDERED: PROPOFOL INJ 200 MG/20 ML VIAL IV ONE (14:05)
--- NOTE | 2018-07-12 14:27 | RADIOLOGY REPORT (SQ) ---
EXAM DESCRIPTION: U/S ABDOMEN LIMITED W/O DOP COMPLETED DATE/TIME: 07/12/2018 2:17 pm REASON FOR STUDY: cholecystitis on CT COMPARISON: CT abdomen pelvis 07/12/2018 TECHNIQUE: Dynamic and static grayscale images acquired of the abdomen and recorded on PACS. Additio gavi selected color Doppler and spectral images recorded. LIMITATIONS: Midline bowel gas, body habitus FINDINGS: PANCREAS: Midline pancreas unremarkable LIVER: Fatty liver. No focal masses. LIVER VASCULATURE: Normal directional flow of the main portal vein and hepatic veins. GALLBLADDER: Innumerable tiny shadowing stones layer dependently in the gallbladder. Gallbladder wal l thickening and pericholecystic fluid worrisome for acute cholecystitis. There is some adenomyosis of the gallbladder fundus with comet tail artifact ULTRASOUND-DETECTED CRUZ'S SIGN: Negative, patient was medicated INTRAHEPATIC DUCTS AND COMMON DUCT: CBD and intrahepatic ducts normal caliber. No filling defects. D istal most common duct not well seen due to duodenum gas. INFERIOR VENA CAVA: Not well seen AORTA: No aneurysm. RIGHT KIDNEY: Normal size. Normal echogenicity. No solid or suspicious masses. No hydronephrosis. No calcifications. PERITONEAL AND RIGHT PLEURAL SPACE: No ascites or effusions. OTHER: No other significant findings. IMPRESSION: Acute cholecystitis Innumerable gallstones in the gallbladder No common bile duct dilatation. Distal most common duct not well seen due to duodenum gas TECHNICAL DOCUMENTATION: JOB ID: [id number]- All Rights Reserved Reading location - IP/workstation name: [email or web address]
[2018-07-12] MEDS ORDERED: CEFAZOLIN INJ 1 GM VIAL ONE (14:28)
[2018-07-12] MEDS ORDERED: GLYCOPYRROLATE 1 MG/5 ML SYRINGE ONE (15:26)
[2018-07-12] MEDS ORDERED: NEOSTIGMINE METHYLSULFATE 10 MG/10 ML VIAL ONE (15:26)
[2018-07-12] MEDS ORDERED: ROCURONIUM BROMIDE INJ 50 MG/5 ML VIAL IV ONE (15:26)
--- NOTE | 2018-07-12 17:40 | Operative Report ---
Operative Report DATE OF SURGERY: 07/12/18 PREOPERATIVE DIAGNOSIS: Cholecystitis POSTOPERATIVE DIAGNOSIS: Chronic and acute cholecystitis OPERATION: Laparoscopic cholecystectomy with high degree of difficulty SURGEON: CHAPIN MCCORMICK ANESTHESIA: GA TISSUE REMOVED OR ALTERED: Gallbladder COMPLICATIONS: None ESTIMATED BLOOD LOSS: 100 cc INTRAOPERATIVE FINDINGS: Markedly inflamed thick-walled gallbladder filled with multiple small stones. PROCEDURE: Informed consent was obtained. Patient was brought to the operating room placed operating table in supine position. After satisfactory induction of general anesthesia, patient's abdomen was prepped and draped in usual sterile fashion. A supraumbilical midline incision was made and dissection carried down to the fascia the peritoneal cavity entered without difficulty. Pineda trocar was inserted. Pneumoperitoneum produced good patient toleration. 5 mm trocar was placed in the subxiphoid location.Two 5 mm trochars were placed in the right subcostal location. Another 5 mm trocar was placed during surgery at the mid abdomen to assist with retraction. The gallbladder was markedly inflamed and its wall thickened making the procedure very difficult. Furthermore patient's body habitus and the shape of the liver precluded retracting the gallbladder cephalad over the dome of the liver. The gallbladder had to be retracted anteriorly by grasping the midportion of the gallbladder and retracted anteriorly. Additional trocar had to be placed for further retraction and exposure. The infundibulum of the gallbladder was grasped retracted laterally and inferiorly thus exposing calot's triangle. Dissection was difficult due to the marked inflammatory changes. Meticulous dissection was performed. The cystic duct appeared distended and the cystic duct gallbladder junction was clearly identified. The cystic artery was clearly seen and going into the gallbladder. The cystic artery was taken first by clipping and dividing. And the cystic duct was clipped and divided. The gallbladder was taken off the gallbladder bed using the hook electrocautery technique. The planes were indistinct making this portion of the procedure very difficult as well. About midway up the dissection there was a vessel clearly going into the gallbladder which was clipped and divided. There were stones spillage during the case due to the retracting trochars tearing a hole in the gallbladder. Stones were very small and attempt was made at retrieval of the stones by the suction apparatus. But some stones were likely left in the abdomen. The operative field was copiously irrigated and irrigant aspirated out. There was no bile staining. The surgical clips appeared secure. The gallbladder was removed with an Endobag through the Pineda trocar site fascial defect. The gallbladder was completely filled with tiny stones. Hemostasis appeared to be good. All trochars were removed under the direct vision of the laparoscope to ensure hemostasis. The Pineda trocar site fascial defect was closed with interrupted Vicryl sutures. All skin incisions were closed with subcuticular interrupted Monocryl sutures. Marcaine was injected at the port sites. Patient tolerated procedure well no apparent complications and was taken to the recovery area in stable condition. A procedure that normally takes less than 40 minutes took well over 2 hours to perform.
[2018-07-12] MEDS: FENTANYL CITRATE INJ/PF 100 MCG/2 ML AMPUL ONE ×2 (17:42→18:00)
[2018-07-12] MEDS ORDERED: DEXTROSE 50%-WATER 25 GM/50 ML DISP.SYRIN IV PRN ×2 (17:44)
[2018-07-12] MEDS ORDERED: GLUCAGON,HUMAN RECOMB 1 MG INJ IM PRN (17:44)
[2018-07-12] MEDS ORDERED: DEXTROSE 40% GEL 15 GM TUBE PO PRN ×2 (17:44)
--- NOTE | 2018-07-12 21:27 | PDOC PROGRESS REPORT ---
Subjective Progress Note for:: 07/12/18 Subjective:: Pain has markedly improved. Thirsty. Reason For Visit: CHOLECYSTITIS Physical Exam Vital Signs: Temp Pulse Resp BP Pulse Ox 97.5 F 76 18 148/81 H 97 07/12/18 18:57 07/12/18 18:57 07/12/18 18:57 07/12/18 18:57 07/12/18 18:57 Intake & Output 07/11/18 07/12/18 07/13/18 06:59 06:59 06:59 Intake Total 2400 Output Total 275 Balance 2125 Weight 127 kg General appearance: PRESENT: no acute distress, cooperative Respiratory exam: PRESENT: clear to auscultation panda Cardiovascular exam: PRESENT: RRR GI/Abdominal exam: PRESENT: other - Soft, obese, much improved tenderness of the abdomen from preoperative exam. Wounds are clean dry and intact with Steri- Strips. Drain output is blood-tinged nonbilious. Results Laboratory Results: 07/12/18 10:30 07/12/18 10:30 07/12/18 07/12/18 07/12/18 10:30 10:30 10:30 WBC 9.0 RBC 4.33 Hgb 12.9 Hct 38.5 MCV 89 MCH 29.7 MCHC 33.5 RDW 14.3 H Plt Count 204 Seg Neutrophils % 66.5 Lymphocytes % 24.0 Monocytes % 7.3 Eosinophils % 1.3 Basophils % 0.9 Absolute Neutrophils 6.0 Absolute Lymphocytes 2.2 Absolute Monocytes 0.7 Absolute Eosinophils 0.1 Absolute Basophils 0.1 Sodium 140.5 Potassium 3.9 Chloride 102 Carbon Dioxide 32 H Anion Gap 7 BUN 11 Creatinine 1.03 Est GFR ( Amer) > 60 Est GFR (Non-Af Amer) 55 L Glucose 188 H Calcium 9.0 Total Bilirubin 0.7 AST 46 H ALT 24 Alkaline Phosphatase 67 Total Protein 6.9 Albumin 3.6 Lipase 182.2 Urine Color YELLOW Urine Appearance CLEAR Urine pH 5.0 Ur Specific [place] 1.014 Urine Protein NEGATIVE Urine Glucose (UA) 50 H Urine Ketones TRACE H Urine Blood NEGATIVE Urine Nitrite NEGATIVE Ur Leukocyte Esterase NEGATIVE Urine WBC (Auto) 1 Urine RBC (Auto) 0 Impressions: Abdomen/Pelvis CT 07/12/18 11:21 IMPRESSION: Pericholecystic fluid, question acute cholecystitis. Punctate increased density of the gallbladder fundus could represent stones or adenomyosis Abdomen Ultrasound 07/12/18 12:26 IMPRESSION: Acute cholecystitis Innumerable gallstones in the gallbladder No common bile duct dilatation. Distal most common duct not well seen due to duodenum gas Assessment & Plan - Diagnosis (1) Acute cholecystitis Is this a current diagnosis for this admission?: Yes Plan: Doing well after laparoscopic cholecystectomy. If continues to do well we will plan to discharge home tomorrow and pulling out the drain tomorrow.
[2018-07-12] MEDS: CEFAZOLIN 1 GM/D5W RTU 1 GM/50 ML RTUPB IV SCH (21:38)
[2018-07-12] MEDS: CARVEDILOL 12.5 MG TABLET PO SCH (21:38)
[2018-07-12] MEDS: TAMOXIFEN CITRATE 10 MG TABLET PO SCH (21:39)
[2018-07-12] MEDS: HYDROMORPHONE HCL INJ/PF 2 MG/ML AMPULE IV PRN (21:40)
[2018-07-12] MEDS ORDERED: (PENDING PHARMACY ID) (Carvedilol [Coreg 25 Mg Tablet] 1 TAB) PO SCH (22:00)
[2018-07-12] MEDS: INSULIN REG, HUMAN 100 UNIT/ML 3 ML VIAL (PYX) SUBCUT SCH (22:22)
[2018-07-13] MEDS: INSULIN REG, HUMAN 100 UNIT/ML 3 ML VIAL (PYX) SUBCUT SCH ×3 (00:09→12:25)
[2018-07-13] MEDS: CEFAZOLIN 1 GM/D5W RTU 1 GM/50 ML RTUPB IV SCH ×4 (03:30→22:16)
[2018-07-13] MEDS: NORMAL SALINE 1000 ML 1,000 ML IV PRN ×2 (03:33→12:35)
[2018-07-13 06:56] LABS: HEMATOCRIT 37.8 % (36.0-47.0); HEMOGLOBIN 12.4 g/dL (12.0-15.5); MEAN CORPUSCULAR HEMOGLOBIN 29.1 pg (27.0-33.4); MEAN CORPUSCULAR HGB CONC 32.8 g/dL (32.0-36.0); MEAN CORPUSCULAR VOLUME 89 fl (80-97); PLATELET COUNT 170 10^3/uL (150-450); RED BLOOD COUNT 4.27 10^6/uL (3.72-5.28); RED CELL DISTRIBUTION WIDTH 13.8 % (11.5-14.0); WHITE BLOOD COUNT 13.2 10^3/uL (4.0-10.5)
[2018-07-13] MEDS ORDERED: (PENDING PHARMACY ID) (Cholecalciferol (Vitamin D3) [D3-2000] 2,000 UNIT) PO SCH (10:00)
[2018-07-13] MEDS: TAMOXIFEN CITRATE 10 MG TABLET PO SCH ×2 (10:16→22:16)
[2018-07-13] MEDS: CARVEDILOL 12.5 MG TABLET PO SCH ×2 (10:16→22:16)
[2018-07-13] MEDS: ASPIRIN 81 MG TABLET, CHEWABLE PO SCH (10:16)
[2018-07-13] MEDS: CHOLECALCIFEROL (D3) 1,000 UNIT TABLET PO SCH (10:16)
[2018-07-13] MEDS: ALLOPURINOL 300 MG TABLET PO SCH (10:33)
[2018-07-13] MEDS: HYDROMORPHONE HCL INJ/PF 2 MG/ML AMPULE IV PRN (10:34)
[2018-07-13 13:45] LABS: ALANINE AMINOTRANSFERASE 100 U/L (9-52); ALBUMIN 3.1 g/dL (3.5-5.0); ALKALINE PHOSPHATASE 73 U/L (38-126); ANION GAP 9 (5-19); ASPARTATE AMINO TRANSFERASE 146 U/L (14-36); BILIRUBIN,DIRECT 0.4 mg/dL (0.0-0.4); BILIRUBIN,TOTAL 0.6 mg/dL (0.2-1.3); BLOOD UREA NITROGEN 12 mg/dL (7-20); CALCIUM 8.8 mg/dL (8.4-10.2); CARBON DIOXIDE 24 mmol/L (22-30); CHLORIDE 104 mmol/L (98-107); GLUCOSE 202 mg/dL (75-110); POTASSIUM 3.6 mmol/L (3.6-5.0); SODIUM 136.8 mmol/L (137-145); TOTAL PROTEIN 6.1 g/dL (6.3-8.2)
--- NOTE | 2018-07-13 16:21 | PDOC PROGRESS REPORT ---
Subjective Progress Note for:: 07/13/18 Subjective:: incisional pains Reason For Visit: CHOLECYSTITIS Physical Exam Vital Signs: Temp Pulse Resp BP Pulse Ox 98.6 F 80 16 131/74 H 93 07/13/18 15:16 07/13/18 15:16 07/13/18 15:16 07/13/18 15:16 07/13/18 15:16 Intake & Output 07/12/18 07/13/18 07/14/18 06:59 06:59 06:59 Intake Total 2860 1003 Output Total 1110 Balance 1750 1003 Weight 128.1 kg Exam: abdomen is soft with mild tenderness Results Laboratory Results: 07/13/18 06:16 07/13/18 06:16 07/13/18 07/13/18 06:16 06:16 WBC 13.2 H RBC 4.27 Hgb 12.4 Hct 37.8 MCV 89 MCH 29.1 MCHC 32.8 RDW 13.8 Plt Count 170 Sodium 136.8 L Potassium 3.6 Chloride 104 Carbon Dioxide 24 Anion Gap 9 BUN 12 Creatinine 1.03 Est GFR ( Amer) > 60 Est GFR (Non-Af Amer) 55 L Glucose 202 H Calcium 8.8 Total Bilirubin 0.6 AST 146 H ALT 100 H Alkaline Phosphatase 73 Total Protein 6.1 L Albumin 3.1 L Impressions: Abdomen/Pelvis CT 07/12/18 11:21 IMPRESSION: Pericholecystic fluid, question acute cholecystitis. Punctate increased density of the gallbladder fundus could represent stones or adenomyosis Abdomen Ultrasound 07/12/18 12:26 IMPRESSION: Acute cholecystitis Innumerable gallstones in the gallbladder No common bile duct dilatation. Distal most common duct not well seen due to duodenum gas Assessment & Plan - Time Time Spent with patient: 15-24 minutes - Plan Summary Plan Summary: A/ WBC and LFTs slightly elevated likely due to post op changes being a very difficult and long Lap Izabel P/ Continue IV antibiotics OK to start diet and advance as tolerated Ambulate Repeat Labs in am.
[2018-07-13] MEDS ORDERED: DEXTROSE 50%-WATER SYRINGE 25 GM/50 ML DOSE IV PRN (17:30)
[2018-07-13] MEDS ORDERED: DEXTROSE 40% GEL 15 GM TUBE PO PRN (17:30)
[2018-07-13] MEDS ORDERED: DEXTROSE 40% GEL 15 GM TUBE X 2 PO PRN (17:30)
[2018-07-13] MEDS ORDERED: GLUCAGON,HUMAN RECOMB 1 MG INJ IM PRN (17:30)
[2018-07-13] MEDS ORDERED: DEXTROSE 50%-WATER SYRINGE 12.5 GM/25 ML DOSE IV PRN (17:30)
[2018-07-13] MEDS: INSULIN LISPRO 100 UNIT/ML 3 ML VIAL SUBCUT SCH (22:17)
[2018-07-14 00:32] VITALS: BP 119/56
[2018-07-14] MEDS: CEFAZOLIN 1 GM/D5W RTU 1 GM/50 ML RTUPB IV SCH ×2 (02:13→08:46)
[2018-07-14] MEDS: HYDROMORPHONE HCL INJ/PF 2 MG/ML AMPULE IV PRN (03:14)
[2018-07-14 05:28] LABS: ABSOLUTE BASOPHILS # (AUTO) 0.1 10^3/uL (0.0-0.2); ABSOLUTE EOSINOPHILS # (AUTO) 0.5 10^3/uL (0.0-0.6); ABSOLUTE LYMPHOCYTES (AUTO) 2.1 10^3/uL (0.5-4.7); ABSOLUTE MONOCYTES (AUTO) 0.9 10^3/uL (0.1-1.4); EOSINOPHILS % (AUTO) 4.5 % (0-6); HEMATOCRIT 34.5 % (36.0-47.0); HEMOGLOBIN 11.4 g/dL (12.0-15.5); LYMPHOCYTES % (AUTO) 19.6 % (13-45); MEAN CORPUSCULAR HEMOGLOBIN 29.3 pg (27.0-33.4); MEAN CORPUSCULAR VOLUME 89 fl (80-97); MONOCYTES % (AUTO) 8.6 % (3-13); PLATELET COUNT 179 10^3/uL (150-450); RED BLOOD COUNT 3.88 10^6/uL (3.72-5.28); RED CELL DISTRIBUTION WIDTH 13.9 % (11.5-14.0); SEGMENTED NEUTROPHILS % (AUTO) 66.3 % (42-78); TOTAL CELLS COUNTED % (AUTO) 100 %; WHITE BLOOD COUNT 10.6 10^3/uL (4.0-10.5)
[2018-07-14 05:54] LABS: ALANINE AMINOTRANSFERASE 56 U/L (9-52); ALBUMIN 2.9 g/dL (3.5-5.0); ALKALINE PHOSPHATASE 96 U/L (38-126); ANION GAP 11 (5-19); ASPARTATE AMINO TRANSFERASE 79 U/L (14-36); BILIRUBIN,DIRECT 0.4 mg/dL (0.0-0.4); BILIRUBIN,TOTAL 0.6 mg/dL (0.2-1.3); BLOOD UREA NITROGEN 15 mg/dL (7-20); CALCIUM 8.4 mg/dL (8.4-10.2); CARBON DIOXIDE 24 mmol/L (22-30); CHLORIDE 103 mmol/L (98-107); GLUCOSE 128 mg/dL (75-110); POTASSIUM 3.2 mmol/L (3.6-5.0); SODIUM 137.8 mmol/L (137-145); TOTAL PROTEIN 5.9 g/dL (6.3-8.2)
[2018-07-14] MEDS: INSULIN LISPRO 100 UNIT/ML 3 ML VIAL SUBCUT SCH (07:33)
[2018-07-14] MEDS: CARVEDILOL 12.5 MG TABLET PO SCH (09:47)
[2018-07-14] MEDS: CHOLECALCIFEROL (D3) 1,000 UNIT TABLET PO SCH (09:47)
[2018-07-14] MEDS: ASPIRIN 81 MG TABLET, CHEWABLE PO SCH (09:48)
[2018-07-14] MEDS: ALLOPURINOL 300 MG TABLET PO SCH (09:48)
[2018-07-14] MEDS: TAMOXIFEN CITRATE 10 MG TABLET PO SCH (09:48)
--- NOTE | 2018-07-14 14:30 | DISCHARGE SUMMARY E ---
Discharge Summary NAME: JESSIE BELL : 1960 AGE: 58Y ADMITTED: 07/12/2018 DISCHARGED: 07/14/2018 FINAL DIAGNOSES: 1. Acute cholecystitis. 2. Cholelithiasis. PROCEDURE: Laparoscopic cholecystectomy, 07/12/2018; Dr. Mcdonald, surgeon. HOSPITAL COURSE: Patient was admitted on 07/12/2018 for right upper quadrant pain. Ultrasound of the right upper quadrant showed acute cholecystitis and cholelithiasis. Patient, on the same day, underwent laparoscopic cholecystectomy by Dr. Mcdonald and it was noted to be quite a difficult procedure. Postoperatively, patient continued IV antibiotics and was able to tolerate a regular diet on 07/14/2018. Also the drain was removed on the day of discharge. Patient was given a prescription for Percocet today, to take 1 every 6 hours as needed for pain x10 pills. Patient was then discharged improved on 07/14/2018 with the above final diagnoses. Patient to be followed up in the surgical clinic in 2 weeks. Patient advised not to do any lifting more than 10 pounds for the next 2 weeks. DICTATING PHYSICIAN: MAUREEN AUGUSTINE M.D. [id number] PHY#: [id number] ID: [id number] JOB#: [id number] ACCT: [id number] cc:MAUREEN AUGUSTINE M.D. [facility],
== END 2018-07-14 12:30 | disposition home or self-care (01) ==
LOC: ER 09:55 → UNDOADMOB 12:51 → INTOOBSV 12:51 → EH 12:51 → OROUT 17:40 → 4S 18:39 → EH 18:39 → UNDODISOB 07-14 12:30 → OROUT 07-14 12:30
PROVIDERS: ATTEND Surgery
DX: K80.12 Calculus of gallbladder with acute and chronic cholecystitis without obstruction (principal); E78.5 Hyperlipidemia, unspecified; I10 Essential (primary) hypertension; E11.9 Type 2 diabetes mellitus without complications; D64.9 Anemia, unspecified; E08.42 Diabetes mellitus due to underlying condition with diabetic polyneuropathy; E78.2 Mixed hyperlipidemia; G47.33 Obstructive sleep apnea (adult) (pediatric); E55.9 Vitamin D deficiency, unspecified; M10.00 Idiopathic gout, unspecified site; E66.01 Morbid (severe) obesity due to excess calories; Z68.43 Body mass index [BMI] 50.0-59.9, adult; Z79.899 Other long term (current) drug therapy; Z85.3 Personal history of malignant neoplasm of breast; Z79.82 Long term (current) use of aspirin; Z79.84 Long term (current) use of oral hypoglycemic drugs
CPT/HCPCS: 99285; 96374; 36415 ×3; 82962 ×3; 83690; 85025 ×2; 85027; 80053 ×3; 81001; 88304 ×2; 76705; 74177; 94799; 00790; 47562; A9270 ×15; J2250; J0690 ×4; J3490 ×3; J1100; J1885; J3010; J2710; J1170 ×3; J2405; J7030; J2704; 790; J1815

== ENCOUNTER 2018-11-24 19:23 | Emergency (ER) | payer MEDICARE, MEDICAID ==
[2018-11-24] MEDS ORDERED: HYDROXYZINE HCL 10 MG TABLET PO ONE (19:52)
--- NOTE | 2018-11-24 19:53 | ER Document Report ---
ED Medical Screen (RME) - General Chief Complaint: Itching Stated Complaint: ITCHING Time Seen by Provider: 11/24/18 19:52 Primary Care Provider: JOSH CALL MD [Primary Care Provider] - Follow up as needed TRAVEL OUTSIDE OF THE [place] IN LAST 30 DAYS: No - HPI Notes: 11/24/18 19:52 Patient is a 58-year-old female who presents complaining of itching to her skin primarily to her arms, upper chest, upper back, and head that started a couple hours ago without known precipitating event. Patient states that she has not been working with plants, no new foods/detergents/soaps/clothing. She has not had any new medicines. No known insect bite or rash. No fever or recent illness. I have treated and performed a rapid initial assessment of this patient. A comprehensive ED assessment and evaluation of the patient, analysis of test results and completion of medical decision making process will be conducted by additional ED providers. PHYSICAL EXAMINATION: GENERAL: Well-appearing, well-nourished and in no acute distress. A&Ox4. Answers questions appropriately. Skin: no obvious rash. - Related Data Allergies/Adverse Reactions: insulin glargine, human recombin. a [From Lantus] Adverse Reaction (Verified 07/12/18 10:04) RASH Past Medical History - Past Medical History Cardiac Medical History: Reports: Hx Hypercholesterolemia, Hx Hypertension Denies: Hx Coronary Artery Disease, Hx Heart Attack Pulmonary Medical History: Reports: Hx Pneumonia Denies: Hx Asthma, Hx Bronchitis, Hx COPD Neurological Medical History: Denies: Hx Cerebrovascular Accident Endocrine Medical History: Reports: Hx Diabetes Mellitus Type 2 Renal/ Medical History: Denies: Hx Peritoneal Dialysis Malignancy Medical History: Reports: Hx Breast Cancer - Left-sided breast cancer status post lumpectomy and radiation Musculoskeltal Medical History: Reports Hx Arthritis Psychiatric Medical History: Reports: Hx Depression Past Surgical History: Reports: Hx Breast Surgery - L. node on breast, Hx Section - x 1, Hx Hysterectomy, Hx Mastectomy - left breast - Immunizations Hx Diphtheria, Pertussis, Tetanus Vaccination: Yes Physical Exam - Vital signs Vitals: Temp Pulse Resp BP Pulse Ox 98.5 F 80 16 207/101 H 98 11/24/18 19:37 11/24/18 19:37 11/24/18 19:37 11/24/18 19:37 11/24/18 19:37 Course - Vital Signs Vital signs: Temp Pulse Resp BP Pulse Ox 98.5 F 80 16 207/101 H 98 11/24/18 19:37 11/24/18 19:37 11/24/18 19:37 11/24/18 19:37 11/24/18 19:37 Doctor's Discharge - Discharge Referrals: JOSH CALL MD [Primary Care Provider] - Follow up as needed
[2018-11-24] MEDS ORDERED: DIPHENHYDRAMINE HCL 25 MG CAPSULE PO ONE (21:12)
[2018-11-24] MEDS ORDERED: FAMOTIDINE 20 MG TABLET PO ONE (21:12)
--- NOTE | 2018-11-24 21:16 | ER Document Report ---
HPI - HPI Time Seen by Provider: 11/24/18 19:52 Pain Level: 1 Context: Patient is a 58-year-old female who presents complaining of itching to her skin primarily to her arms, upper chest, upper back, and head that started about 2 hours ago shortly after patient had dyed her hair pink. She denies difficulty swallowing or breathing, rash, or any other symptoms at this time. She denies history of the same. - REPRODUCTIVE Reproductive: DENIES: : Past Medical History - General Information source: Patient - Social History Smoking Status: Never Smoker Frequency of alcohol use: None Drug Abuse: None Lives with: Family Family History: None Patient has suicidal ideation: No Patient has homicidal ideation: No - Past Medical History Cardiac Medical History: Reports: Hx Hypercholesterolemia, Hx Hypertension Denies: Hx Coronary Artery Disease, Hx Heart Attack Pulmonary Medical History: Reports: Hx Pneumonia Denies: Hx Asthma, Hx Bronchitis, Hx COPD Neurological Medical History: Denies: Hx Cerebrovascular Accident Endocrine Medical History: Reports: Hx Diabetes Mellitus Type 2 Renal/ Medical History: Denies: Hx Peritoneal Dialysis Malignancy Medical History: Reports: Hx Breast Cancer - Left-sided breast cancer status post lumpectomy and radiation Musculoskeletal Medical History: Reports Hx Arthritis Psychiatric Medical History: Reports: Hx Depression Past Surgical History: Reports: Hx Breast Surgery - L. node on breast, Hx Section - x 1, Hx Hysterectomy, Hx Mastectomy - left breast - Immunizations Hx Diphtheria, Pertussis, Tetanus Vaccination: Yes Hx Pneumococcal Vaccination: 02/13/14 Vertical Provider Document - CONSTITUTIONAL General Appearance: WD/WN, No Apparent Distress - INFECTION CONTROL TRAVEL OUTSIDE OF THE [place] IN LAST 30 DAYS: No - HEENT HEENT: Atraumatic, Normal ENT Exam - Patent airway, normal tongue, normal lips, normal ears and eyes, normal ENT exam, Normocephalic - NECK Neck: Normal Inspection - RESPIRATORY Respiratory: Breath Sounds Normal, No Respiratory Distress - CARDIOVASCULAR Cardiovascular: Regular Rate, Regular Rhythm - GI/ABDOMEN Gastrointestinal: Abdomen Soft, Abdomen Non-Tender - BACK Back: Normal Inspection - MUSCULOSKELETAL/EXTREMETIES Musculoskeletal/Extremeties: MAEW, FROM, Non-Tender - NEURO Level of Consciousness: Awake, Alert, Appropriate - DERM Integumentary: Warm, Dry, No Rash - Small areas of johnson with excoriations over the neck area and armpit areas, otherwise unremarkable with no evidence of rash Course - Re-evaluation Re-evalutation: Patient with some excoriation johnson but no noted rash, no signs of anaphylaxis, symptoms started after she put the hair dye in. Suspect histamine reaction secondary to this. Treated with antihistamines. Treating with antihistamines at home. Discussed recommendation of washing it out, antihistamines at home, follow-up, and return precautions for any worsening symptoms. Patient has elevated blood pressure, rechecked and downtrending, treated for hypertension at home, no headache or chest pain. Patient will have this rechecked with primary care. Patient states appreciation and agreement. - Vital Signs Vital signs: Temp Pulse Resp BP Pulse Ox 98.5 F 80 16 207/101 H 98 11/24/18 19:37 11/24/18 19:37 11/24/18 19:37 11/24/18 19:37 11/24/18 19:37 Discharge - Discharge Clinical Impression: Pruritus of skin Condition: Stable Disposition: HOME, SELF-CARE Additional Instructions: Your evaluation is most consistent with a reaction to the hair dye. I recommend the antihistamines as prescribed for 1 week. Wash out the dye as soon as you can. Do not use the same brand in the future. Follow-up with primary care. Return for any concerning symptoms including developing rash, difficulty breathing or swallowing, swelling of the face, tongue, throat, or any other concerning symptoms. Prescriptions: Cetirizine HCl [All Day Allergy] 10 mg PO DAILY #30 capsule Famotidine [Pepcid 20 mg Tablet] 20 mg PO DAILY #12 tablet Forms: Elevated Blood Pressure Referrals: JOSH CALL MD [Primary Care Provider] - Follow up as needed
[2018-11-24 21:54] VITALS: BP 189/94
== END 2018-11-24 21:45 | disposition home or self-care (01) ==
LOC: ER 19:23
DX: L29.9 Pruritus, unspecified (principal); I10 Essential (primary) hypertension; E11.9 Type 2 diabetes mellitus without complications
CPT/HCPCS: A9270 ×3

== ENCOUNTER → 2019-10-25 | Outpatient (CLI) | payer MEDICARE, MEDICAID ==
--- NOTE | 2019-10-25 14:48 | RADIOLOGY REPORT (SQ) ---
EXAM DESCRIPTION: VENOUS UNILATERAL LOWER IMAGES COMPLETED DATE/TIME: 10/25/2019 2:37 pm REASON FOR STUDY: RLE THROMBOPHLEBITIS I80.11 PHLEBITIS AND THROMBOPHLEBITIS OF RIGHT FEMORAL VEIN COMPARISON: None. TECHNIQUE: Dynamic and static ramos scale and color images acquired of the right leg venous system. S elected spectral images acquired with additional compression and augmentation maneuvers. The contrala teral common femoral vein and saphenofemoral junction were also imaged. Images stored on PACS. LIMITATIONS: None. FINDINGS: COMMON FEMORAL: Normal phasicity, compression and augmentation. No visualized echogenic ma terial on ramos scale. No defects on color images. FEMORAL: Normal compression and augmentation. No visualized echogenic material on ramos scale. No defe cts on color images. POPLITEAL: Normal compression, augmentation. No visualized echogenic material on ramos scale. No defec ts on color images. CALF VESSELS: Normal compression, augmentation. No visualized echogenic material on ramos scale. No de fects on color images. GSV and SSV: Normal compression, augmentation. No visualized echogenic material on ramos scale. No def ects on color images. ANY DEEP VENOUS INSUFFICIENCY: Not evaluated. ANY EVIDENCE OF POPLITEAL CYST: No. OTHER: Varicosity is identified at the site of palpable lump. CONTRALATERAL COMMON FEMORAL VEIN: Normal phasicity, compression and augmentation. No visualized echogenic material on ramos scale. No de fects on color images. IMPRESSION: 1. NO EVIDENCE OF DVT OR SVT IN THE RIGHT LEG. 2. Varicose vein identified at the site of palpable lump. COMMENT: 1. The results of this examination were called on 10/25/2019 at 14:34 hours. TECHNICAL DOCUMENTATION: JOB ID: [id number] 2010 [email or web address]- All Rights Reserved Reading location - IP/workstation name: [email or web address]
== END ==
LOC: SP 13:31
PROVIDERS: ATTEND Internal Medicine
DX: I80.11 Phlebitis and thrombophlebitis of right femoral vein (principal)
CPT/HCPCS: 93971

== ENCOUNTER 2019-11-11 21:01 | Inpatient (IN) | payer MEDICARE, MEDICAID ==
[2019-11-11] MEDS ORDERED: DEXAMETHASONE SOD PHOS INJ 10 MG/1 ML VIAL IV ONE (22:43)
[2019-11-11] MEDS ORDERED: IPRATROPIUM/ALBUTEROL 0.5-2.5 MG/3 ML AMPUL NEB ONE (22:43)
--- NOTE | 2019-11-11 22:45 | ER Document Report ---
ED Respiratory Problem - General Chief Complaint: Cough Stated Complaint: COUGH Time Seen by Provider: 11/11/19 22:30 Primary Care Provider: JOSH CALL MD [Primary Care Provider] - Follow up as needed Notes: CHIEF COMPLAINT: Cough and shortness of breath HPI: 59-year-old female with history of type 2 diabetes, hypertension, high cholesterol who does have CPAP ordered but does not use it consistently presenting for 4 days of cough and shortness of breath. Patient states that she was diagnosed as COVID +6 days ago. She was part of a larger group of people that were all diagnosed positive in the same family. She had no symptoms at that time. Patient states 3 days ago she started to have cough, low-grade fevers, body ache and increasing cough with shortness of breath. ROS: See HPI - all other systems were reviewed and are otherwise negative Constitutional: + fever Eyes: no drainage, no blurred vision ENT: no runny nose, no sore throat Cardiovascular: no chest pain Resp: + SOB, + cough GI: no vomiting, no diarrhea, no abdominal pain : no dysuria Integumentary: no rash Allergy: no hives Musculoskeletal: no extremity swelling Neurological: no numbness/tingling, no weakness MEDICATIONS: I agree with the patient medications as charted by the RN. ALLERGIES: I agree with the allergies as charted by the RN. PAST MEDICAL HISTORY/PAST SURGICAL HISTORY: Reviewed and agree as charted by RN. SOCIAL HISTORY: Reviewed and agree as charted by RN. FAMILY HISTORY: No significant familial comorbid conditions directly related to patient complaint EXAM: Reviewed vital signs as charted by RN. CONSTITUTIONAL: Alert and oriented and responds appropriately to questions. Well-appearing; well-nourished HEAD: Normocephalic; atraumatic EYES: PERRL; Conjunctivae clear, sclerae non-icteric ENT: normal nose; no rhinorrhea; moist mucous membranes; pharynx without lesions noted, no uvula edema or deviation, no tonsillar hypertrophy, phonation normal NECK: Supple without meningismus; non-tender; no cervical lymphadenopathy, no masses CARD: RRR; no murmurs, no clicks, no rubs, no gallops; symmetric distal pulses RESP: Normal chest excursion without splinting, mild tachypnea; breath sounds clear and equal bilaterally although decreased bilateral bases; no wheezes, no rhonchi, no rales, pulse oximetry 90 to 92% on room air, improves to 97% on 2 L nasal cannula ABD/GI: Morbidly obese, normal bowel sounds; non-distended; soft, non-tender, no rebound, no guarding; no palpable organomegaly or masses. BACK: The back appears normal and is non-tender to palpation, there is no CVA tenderness EXT: Normal ROM in all joints; non-tender to palpation; no cyanosis, no effusions, no edema SKIN: Normal color for age and race; warm; dry; good turgor; no acute lesions noted NEURO: Moves all extremities equally; Motor and sensory function intact PSYCH: The patient's mood and manner are appropriate. Grooming and personal hygiene are appropriate. MDM: 59-year-old female presenting with increasing cough and shortness of breath over the last 3 days diagnosed COVID +6 days ago. Given patient's age and medical history will obtain a set of screening cardiac labs, BNP, chest x-ray to evaluate for infiltrate or pneumonia. Patient is mildly hypoxic on room air. Requiring oxygen support at this time. TRAVEL OUTSIDE OF THE [place] IN LAST 30 DAYS: No - Related Data Allergies/Adverse Reactions: insulin glargine, human recombin. a [From Lantus] Adverse Reaction (Verified 07/12/18 10:04) RASH Past Medical History - Social History Smoking Status: Never Smoker Chew tobacco use (# tins/day): No Frequency of alcohol use: None Drug Abuse: None Family History: None - Past Medical History Cardiac Medical History: Reports: Hx Hypercholesterolemia, Hx Hypertension Denies: Hx Coronary Artery Disease, Hx Heart Attack Pulmonary Medical History: Reports: Hx Pneumonia Denies: Hx Asthma, Hx Bronchitis, Hx COPD Neurological Medical History: Denies: Hx Cerebrovascular Accident Endocrine Medical History: Reports: Hx Diabetes Mellitus Type 2 Renal/ Medical History: Denies: Hx Peritoneal Dialysis Malignancy Medical History: Reports: Hx Breast Cancer - Left-sided breast cancer status post lumpectomy and radiation Musculoskeletal Medical History: Reports Hx Arthritis Psychiatric Medical History: Reports: Hx Depression Past Surgical History: Reports: Hx Breast Surgery - L. node on breast, Hx Section - x 1, Hx Hysterectomy, Hx Mastectomy - left breast - Immunizations Hx Diphtheria, Pertussis, Tetanus Vaccination: Yes Hx Pneumococcal Vaccination: 02/13/14 Physical Exam - Vital signs Vitals: Resp Pulse Ox 26 H 90 L 11/11/19 21:15 11/11/19 21:15 Course - Re-evaluation Re-evalutation: 11/12/19 00:15 EKG normal sinus rhythm with a ventricular rate of 74. Multiple PACs with borderline T wave abnormalities interpreted by emergency department physician. MN 152 QT 372 QTc 413. PACs are different from previous EKG of July 09, 2018 11/12/19 03:[address] Lane, Hospitalist. case discussed, admit medical floor, give Zithromax, may be IV or PO - Vital Signs Vital signs: Temp Pulse Resp BP Pulse Ox 100.3 F 18 136/74 H 97 11/11/19 22:08 11/12/19 01:45 11/12/19 03:01 11/12/19 03:01 - Laboratory Result Diagrams: 11/11/19 23:33 11/11/19 23:33 Laboratory results interpreted by me: 11/11/19 11/11/19 11/12/19 23:33 23:33 02:04 RDW 15.2 H ABG pO2 BUN 29 H Creatinine 1.34 H Est GFR ( Amer) 49 L Est GFR (MDRD) Non-Af 40 L Albumin 3.4 L Urine Protein 30 H Urine Glucose (UA) >=500 H Urine Urobilinogen 4.0 H Ur Leukocyte Esterase SMALL H 11/12/19 03:19 RDW ABG pO2 79.4 L BUN Creatinine Est GFR ( Amer) Est GFR (MDRD) Non-Af Albumin Urine Protein Urine Glucose (UA) Urine Urobilinogen Ur Leukocyte Esterase Discharge - Discharge Clinical Impression: Pneumonia due to COVID-19 virus, Hypoxia Condition: Serious Disposition: ADMITTED INPATIENT Admitting Provider: Domingo (Hospitalist) Unit Admitted: Medical Floor Referrals: JOSH CALL MD [Primary Care Provider] - Follow up as needed
[2019-11-11] MEDS ORDERED: ACETAMINOPHEN 325 MG TABLET PO ONE (22:46)
--- NOTE | 2019-11-11 23:30 | RADIOLOGY REPORT (SQ) ---
EXAM DESCRIPTION: XR CHEST 1 VIEW COMPLETED DATE/TME: 11/11/2019 22:43 CLINICAL HISTORY: 59 years, Female, cough sob + covid COMPARISON: 08/04/2016 chest NUMBER OF VIEWS: 1 TECHNIQUE: Portable chest LIMITATIONS: None. FINDINGS: Cardiomegaly with mild interstitial edema. Suspected small effusions bilaterally. No pneumothorax IMPRESSION: Cardiomegaly with mild interstitial edema and suspected small effusions copyright 2010 [email or web address]- All Rights Reserved
[2019-11-11 23:41] LABS: ABSOLUTE BASOPHILS # (AUTO) 0.1 10^3/uL (0.0-0.2); ABSOLUTE MONOCYTES (AUTO) 0.7 10^3/uL (0.1-1.4); ABSOLUTE NEUT (AUTO) 3.7 10^3/uL (1.7-8.2); BASOPHILS % (AUTO) 1.1 % (0-2); EOSINOPHILS % (AUTO) 0.2 % (0-6); HEMATOCRIT 40.4 % (36.0-47.0); HEMOGLOBIN 13.3 g/dL (12.0-15.5); LYMPHOCYTES % (AUTO) 30.5 % (13-45); MEAN CORPUSCULAR HEMOGLOBIN 29.1 pg (27.0-33.4); MEAN CORPUSCULAR VOLUME 88 fl (80-97); MONOCYTES % (AUTO) 11.1 % (3-13); PLATELET COUNT 252 10^3/uL (150-450); RED BLOOD COUNT 4.57 10^6/uL (3.72-5.28); RED CELL DISTRIBUTION WIDTH 15.2 % (11.5-14.0); SEGMENTED NEUTROPHILS % (AUTO) 57.1 % (42-78); TOTAL CELLS COUNTED % (AUTO) 100 %; WHITE BLOOD COUNT 6.5 10^3/uL (4.0-10.5)
[2019-11-12 00:02] LABS: ALBUMIN 3.4 g/dL (3.5-5.0); ALKALINE PHOSPHATASE 67 U/L (38-126); ANION GAP 9 (5-19); ASPARTATE AMINO TRANSFERASE 32 U/L (14-36); BILIRUBIN,DIRECT 0.4 mg/dL (0.0-0.4); BILIRUBIN,TOTAL 0.9 mg/dL (0.2-1.3); BLOOD UREA NITROGEN 29 mg/dL (7-20); CALCIUM 8.9 mg/dL (8.4-10.2); CARBON DIOXIDE 26 mmol/L (22-30); CHLORIDE 105 mmol/L (98-107); GLUCOSE 81 mg/dL (75-110); POTASSIUM 4.1 mmol/L (3.6-5.0); TOTAL PROTEIN 6.5 g/dL (6.3-8.2)
[2019-11-12 00:12] LABS: TROPONIN I 0.012 ng/mL
[2019-11-12] MEDS ORDERED: CEFTRIAXONE 1 GM/D5W RTU 1 GM/50 ML RTUPB IV ONE (02:10)
--- NOTE | 2019-11-12 02:32 | RADIOLOGY REPORT (SQ) ---
CLINICAL HISTORY: eval for infiltrate/PE - Covid+, CREAT 1.34 COMPARISON: None. TECHNIQUE: CT CHEST ANGIOGRAPHY WITHOUT THEN WITH IV CONTRAST on 11/11/2019 11:44 PM CDT. MIPS reconstructions were generated. This exam was performed according to our departmental dose-optimization program, which includes automated exposure control, adjustment of the mA and/or kV according to patient size and/or use of iterative reconstruction technique. MIP images were generated. FINDINGS: Thoracic aorta is normal in course and caliber without aneurysm or dissection. Pulmonary arteries are adequately opacified without acute or chronic filling defects. The heart is moderately enlarged. There is no pericardial effusion. Intrathoracic lymph nodes are not enlarged. There is no pleural effusion, pleural thickening or pneumothorax. Central airways are patent. There is mild bibasilar airspace disease. There are areas of airspace disease in the upper lobes as well, some of which are more groundglass in appearance. Liver is fatty in attenuation. Cholecystectomy was performed. There are no acute osseous findings. No suspicious bony lesions. IMPRESSION: No aortic dissection or aneurysm. No pulmonary embolus. Imaging features can be seen with COVID-19 pneumonia, though are nonspecific and can occur with a variety of infectious and noninfectious processes. [PneInd] Reference: https://pubs.rsna.org/doi/full/10.1148/ryct.6498743424
[2019-11-12 02:39] LABS: APPEARANCE,URINE SLIGHTLY-CLOUDY; BILIRUBIN,URINE NEGATIVE (NEGATIVE); COLOR,URINE YELLOW; GLUCOSE, URINE >=500 mg/dL (NEGATIVE); KETONES,URINE NEGATIVE (NEGATIVE); LEUKOCYTE ESTERASE,URINE SMALL (NEGATIVE); NITRITE,URINE NEGATIVE (NEGATIVE); PROTEIN,URINE 30 mg/dL (NEGATIVE); URINE SPECIFIC GRAVITY 1.025
[2019-11-12 03:31] LABS: ARTERIAL BLOOD BASE EXCESS -2.9 mmol/L; ARTERIAL BLOOD H2CO3 1.13 mmol/L (1.05-1.35); ARTERIAL BLOOD HCO3 21.7 mmol/L (20-24); ARTERIAL BLOOD O2 SATURATION 95.6 % (94-98); ARTERIAL BLOOD PCO2 37.4 mmHg (35-45); ARTERIAL BLOOD PH 7.38 (7.35-7.45); ARTERIAL BLOOD PO2 79.4 mmHg (80-100); ARTERIAL BLOOD TOTAL CO2 22.8 mmol/L (21-25)
[2019-11-12 03:32] LABS: ARTERIAL BLOOD FIO2 2L
[2019-11-12] MEDS ORDERED: AZITHROMYCIN 250 MG TABLET PO ONE (03:46)
[2019-11-12] MEDS ORDERED: ACETAMINOPHEN 325 MG TABLET PO PRN (04:17)
[2019-11-12] MEDS ORDERED: LEVALBUTEROL HCL NEB 0.63 MG/3 ML AMPUL NEB PRN (04:17)
[2019-11-12] MEDS ORDERED: GUAIFENESIN SYRP 200 MG/10 ML UDC PO PRN (04:17)
[2019-11-12] MEDS ORDERED: MELATONIN 5 MG TABLET PO PRN (04:23)
[2019-11-12] MEDS ORDERED: MORPHINE SULFATE 10 MG/ML INJ IV PRN ×4 (04:23→05:28)
[2019-11-12] MEDS ORDERED: LORAZEPAM INJ 2 MG/1 ML VIAL IV PRN (04:23)
[2019-11-12] MEDS ORDERED: METOPROLOL TARTRATE PF/INJ 5 MG/5 ML SDV IV PRN (04:23)
[2019-11-12] MEDS ORDERED: GLUCAGON,HUMAN RECOMB 1 MG INJ IM PRN (06:05)
[2019-11-12] MEDS ORDERED: DEXTROSE 40% GEL 15 GM TUBE PO PRN ×2 (06:05)
[2019-11-12] MEDS ORDERED: DEXTROSE 50%-WATER 25 GM/50 ML DISP.SYRIN IV PRN ×2 (06:05)
[2019-11-12] MEDS: HEPARIN SOD (PORCINE) 5,000 UNIT/ML 1 ML VIAL SUBCUT SCH ×3 (06:23→22:21)
[2019-11-12] MEDS: DEXAMETHASONE SOD PHOSPHATE INJ 4 MG/1 ML VIAL IV SCH ×3 (06:23→22:22)
--- NOTE | 2019-11-12 06:39 | PDOC H&P ---
History of Present Illness Admission Date/PCP: 11/12/19 03:53 JOSH CALL Patient complains of: Dyspnea History of Present Illness: JESSIE BELL is a 59 year old female who presented to the emergency room with a 4-day history of dyspnea. She admits gradually worsening dyspnea over the cou rse of the last 4 days accompanied by a nonproductive cough and associated with intermittent subjective fever, ague and malaise. Her dyspnea is worsened with exertion/activity and has become moderately severe resulting in her emergency room visit. She further admits testing positive for COVID-19 on 11/05/2019 as she had been exposed to the disease by a family member. She denies other associated or accompanying signs and symptoms. She denies prior similar episodes. She has not identified any additional aggravating or ameliorating factors for her dyspnea. In the emergency room she was found to have a multifocal pneumonia pattern consistent with COVID-[address] She was subsequently admitted to the hospital for further evaluation and treatment. Past Medical History Cardiac Medical History: Reports: Hyperlipidema, Hypertension Denies: Coronary Artery Disease, Myocardial Infarction Pulmonary Medical History: Reports: Pneumonia Denies: Asthma, Bronchitis, Chronic Obstructive Pulmonary Disease (COPD) EENT Medical History: Denies: Cataracts, Ears - Hearing aids Neurological Medical History: Denies: Hemorrhagic CVA, Ischemic CVA Endocrine Medical History: Reports: Diabetes Mellitus Type 2, Obesity Denies: Diabetes Mellitus Type 1, Hyperthyroidism, Hypothyroidism Renal/ Medical History: Reports: Other - Chronic Vitamin D deficiency Denies: Chronic Kidney Disease, Nephrolithiasis Malignancy Medical History: Reports: Breast Cancer - Left-sided breast cancer status post lumpectomy and radiation GI Medical History: Denies: Cirrhosis, Hepatitis, Peptic Ulcer Disease Musculoskeltal Medical History: Reports: Arthritis, Gout Skin Medical History: Denies: Eczema, Psoriasis Psychiatric Medical History: Reports: Depression Denies: Alcohol Dependency, Substance Abuse, Tobacco Dependency Traumatic Medical History: Reports: None Hematology: Reports: Anemia Denies: Bleeding Tendencies Infectious Medical History: Reports: None Past Surgical History Past Surgical History: Reports: Section - x 1, Cholecystectomy, Hysterectomy, Mastectomy - left breast Social History Information Source: Patient Lives with: Family Smoking Status: Never Smoker Electronic Cigarette use?: No Frequency of Alcohol Use: None Hx Recreational Drug Use: No Drugs: None Hx Prescription Drug Abuse: No - Advance Directive Resuscitation Status: Full Code Surrogate healthcare decision maker:: Blanquita Bell Family History Family History: DM, Hypertension. denies: CAD, Malignancy Parental Family History Reviewed: Yes Children Family History Reviewed: No Sibling(s) Family History Reviewed.: Yes Medication/Allergy Home Medications: Allopurinol [Zyloprim 300 mg Tablet] 300 mg PO DAILY 04/28/16 Aspirin [Aspirin 81 mg Chewable Tablet] 81 mg PO DAILY 04/28/16 Carvedilol [Coreg 25 mg Tablet] 1 tab PO Q12 04/28/16 Cholecalciferol (Vitamin D3) [D3-2000] 2,000 unit PO DAILY 04/28/16 Glipizide [Glucotrol 10 mg Tablet] 10 mg PO BID 04/28/16 Ibuprofen [Motrin 800 mg Tablet] 800 mg PO Q8HP PRN 04/28/16 Sprakers-3/Dha/Epa/Fish Oil [Fish Oil 1,000 mg Softgel] 1 cap PO DAILY 04/28/16 Tamoxifen Citrate [Nolvadex 10 mg Tablet] 10 mg PO BID 04/28/16 Dulaglutide [Trulicity] 1.5 mg SQ Q7D 07/12/18 Cetirizine HCl [All Day Allergy] 10 mg PO DAILY #30 capsule 11/24/18 Famotidine [Pepcid 20 mg Tablet] 20 mg PO DAILY #12 tablet 11/24/18 Allergies/Adverse Reactions: insulin glargine, human recombin. a [From Lantus] Adverse Reaction (Verified 07/12/18 10:04) RASH Review of Systems Constitutional: PRESENT: as per HPI, fever(s), other - Ague and malaise Eyes: ABSENT: visual disturbances, other - Eye pain Ears: ABSENT: hearing changes, other - Ear pain Nose, Mouth, and Throat: ABSENT: headache(s), sore throat Cardiovascular: PRESENT: as per HPI, dyspnea on exertion. ABSENT: chest pain, palpitations Respiratory: PRESENT: as per HPI, cough, dyspnea. ABSENT: hemoptysis, sputum Gastrointestinal: ABSENT: abdominal pain, constipation, diarrhea, nausea, vomiting Genitourinary: ABSENT: dysuria, hematuria Musculoskeletal: ABSENT: back pain, joint swelling Integumentary: ABSENT: pruritus, rash Neurological: ABSENT: confusion, convulsions, focal weakness, memory loss, syncope Psychiatric: ABSENT: anxiety, depression Endocrine: ABSENT: cold intolerance, heat intolerance Hematologic/Lymphatic: ABSENT: easy bleeding, easy bruising Allergic/Immunologic: ABSENT: seasonal rhinorrhea Physical Exam Vital Signs: Temp Pulse Resp BP Pulse Ox 100.3 F 18 136/74 H 97 11/11/19 22:08 11/12/19 01:45 11/12/19 03:01 11/12/19 03:01 Intake & Output 11/10/19 11/11/19 11/12/19 23:59 23:59 23:59 Weight 127.459 kg General appearance: PRESENT: no acute distress, cooperative, morbidly obese, ot her - On supplemental oxygen via nasal cannula at the time of my evaluation Head exam: PRESENT: atraumatic, normocephalic Eye exam: PRESENT: conjunctiva pink. ABSENT: conjunctival injection, scleral icterus Ear exam: PRESENT: normal external ear exam. ABSENT: bleeding, drainage Mouth exam: PRESENT: dry mucosa, neck supple Neck exam: ABSENT: thyromegaly, tracheal deviation Respiratory exam: PRESENT: decreased breath sounds - Mildly decreased air movement throughout all rocha, prolonged expiratory phas - Minimally prolonged expiratory phase throughout all rocha, symmetrical, tachypnea, other - Status post left mastectomy Cardiovascular exam: PRESENT: RRR. ABSENT: clicks, gallop, rubs Pulses: PRESENT: normal radial pulses, normal dorsalis pedis pul Vascular exam: PRESENT: normal capillary refill. ABSENT: pallor GI/Abdominal exam: PRESENT: normal bowel sounds, soft. ABSENT: tenderness Rectal exam: PRESENT: deferred Extremities exam: ABSENT: joint swelling, pedal edema Musculoskeletal exam: ABSENT: deformity, dislocation Neurological exam: PRESENT: alert, oriented to person, oriented to place, oriented to time, oriented to situation, CN II-XII grossly intact. ABSENT: motor sensory deficit Psychiatric exam: PRESENT: appropriate affect, normal mood Skin exam: PRESENT: dry, intact, warm. ABSENT: jaundice, rash, urticaria Results Laboratory Results: 11/11/19 23:33 11/11/19 23:33 11/11/19 11/11/19 11/11/19 23:33 23:33 23:33 WBC 6.5 RBC 4.57 Hgb 13.3 Hct 40.4 MCV 88 MCH 29.1 MCHC 33.0 RDW 15.2 H Plt Count 252 Seg Neutrophils % 57.1 Carbonic Acid HCO3/H2CO3 Ratio ABG pH ABG pCO2 ABG pO2 ABG HCO3 ABG O2 Saturation ABG Base Excess FiO2 Sodium 140.4 Potassium 4.1 Chloride 105 Carbon Dioxide 26 Anion Gap 9 BUN 29 H Creatinine 1.34 H Est GFR ( Amer) 49 L Glucose 81 Lactic Acid 0.8 Calcium 8.9 Total Bilirubin 0.9 AST 32 Alkaline Phosphatase 67 Total Protein 6.5 Albumin 3.4 L Urine Color Urine Appearance Urine pH Ur Specific [place] Urine Protein Urine Glucose (UA) Urine Ketones Urine Blood Urine Nitrite Ur Leukocyte Esterase Urine WBC (Auto) Urine RBC (Auto) 11/12/19 11/12/19 02:04 03:19 WBC RBC Hgb Hct MCV MCH MCHC RDW Plt Count Seg Neutrophils % Carbonic Acid 1.13 HCO3/H2CO3 Ratio 19:1 ABG pH 7.38 ABG pCO2 37.4 ABG pO2 79.4 L ABG HCO3 21.7 ABG O2 Saturation 95.6 ABG Base Excess -2.9 FiO2 2L Sodium Potassium Chloride Carbon Dioxide Anion Gap BUN Creatinine Est GFR ( Amer) Glucose Lactic Acid Calcium Total Bilirubin AST Alkaline Phosphatase Total Protein Albumin Urine Color YELLOW Urine Appearance SLIGHTLY-CLOUDY Urine pH 5.0 Ur Specific [place] 1.025 Urine Protein 30 H Urine Glucose (UA) >=500 H Urine Ketones NEGATIVE Urine Blood NEGATIVE Urine Nitrite NEGATIVE Ur Leukocyte Esterase SMALL H Urine WBC (Auto) 28 Urine RBC (Auto) 1 11/11/19 23:33 Troponin I 0.012 NT-Pro-B Natriuret Pep 48 Impressions: Chest X-Ray 11/11/19 22:43 IMPRESSION: Cardiomegaly with mild interstitial edema and suspected small effusions copyright 2011 [employer]- All Rights Reserved Chest/Abdomen CTA 11/11/19 23:44 IMPRESSION: No aortic dissection or aneurysm. No pulmonary embolus. Imaging features can be seen with COVID-19 pneumonia, though are nonspecific and can occur with a variety of infectious and noninfectious processes. [PneInd] Reference: https://pubs.rsna.org/doi/full/10.1148/ryct.7568978475 Assessment and Plan - Diagnosis (1) Pneumonia due to COVID-19 virus Is this a current diagnosis for this admission?: Yes (2) Acute respiratory failure with hypoxia Is this a current diagnosis for this admission?: Yes (3) Obstructive sleep apnea Is this a current diagnosis for this admission?: Yes (4) Diabetes mellitus type 2 in obese Is this a current diagnosis for this admission?: Yes (5) Hypertension Qualifiers: Hypertension type: essential hypertension Qualified Code(s): I10 - Essential (primary) hypertension Is this a current diagnosis for this admission?: Yes (6) Hyperlipidemia Qualifiers: Hyperlipidemia type: unspecified Qualified Code(s): E78.5 - Hyperlipidemia, unspecified Is this a current diagnosis for this admission?: Yes (7) Vitamin D deficiency Is this a current diagnosis for this admission?: Yes (8) History of left breast cancer Is this a current diagnosis for this admission?: Yes (9) Morbid obesity Is this a current diagnosis for this admission?: Yes - Plan Summary Summary: Patient will be admitted to the medical floor where she will receive routine supportive and symptomatic cares. She will be treated with supplemental oxygen as needed to maintain adequate oxygen saturation level. She will be treated with IV antibiotics utilizing Rocephin and azithromycin. She will be treated with Decadron 2 mg IV every 8 hours following her initial 10 mg dose given in the ER. She will receive Ativan 1 mg IV every 4 hours as needed for anxiety or restlessness. She will receive morphine sulfate 2 to 4 mg IV every 2 hours as needed for pain. CBCs, metabolic profiles and additional laboratory and/or radiographic evaluations will be obtained as needed. Patient will be offered convalescent plasma and/or intravenous remdesivir as deemed appropriate by her daytime hospitalist. Discharge planning consultation also be obtained. Before meals and at bedtime Accu-Cheks will be obtained and the patient will be treated with sliding scale insulin for hyperglycemia and a hypoglycemic protocol will be in place. She will be on a cardiac and diabetic restricted diet. - Time Time Spent with patient: Less than 15 minutes Medications reviewed and adjusted accordingly: Yes Anticipated Discharge Disposition: Home, Self Care Anticipated Discharge Timeframe: Undetermined - Inpatient Certification Based on my medical assessment, after consideration of the patient's comorbidities, presenting symptoms, or acuity I expect that the services needed warrant INPATIENT care.: Yes I certify that my determination is in accordance with my understanding of Medicare's requirements for reasonable and necessary INPATIENT services [42 CFR 412.3e].: Yes Medical Necessity: Need Close Monitoring Due to Risk of Patient Decompensation, Need for IV Antibiotics, Risk of Complication if Not Cared For in Hospital
--- NOTE | 2019-11-12 07:18 | EKG REPORT ---
SEVERITY:- ABNORMAL ECG - SINUS RHYTHM MULTIPLE ATRIAL PREMATURE COMPLEXES, TRIGEMINAL BORDERLINE T WAVE ABNORMALITIES : Confirmed by: Toro Danielle MD 12-Nov-2019 07:17:42
[2019-11-12] MEDS: INSULIN REG, HUMAN 100 UNIT/ML 3 ML VIAL (PYX) SUBCUT SCH ×4 (08:36→22:22)
[2019-11-12] MEDS: FAMOTIDINE 20 MG TABLET PO SCH ×2 (12:33→22:23)
[2019-11-12] MEDS: GEMFIBROZIL 600 MG TABLET PO SCH (17:12)
--- NOTE | 2019-11-12 17:12 | PDOC PROGRESS REPORT ---
Subjective Progress Note for:: 11/12/19 Subjective:: The patient is very tired. She did not sleep well last night. She complains of cough but did not cough while also in the room. Reason For Visit: COVID 19 PNEUMONIA Physical Exam Vital Signs: Temp Pulse Resp BP Pulse Ox 97.7 F 76 22 H 139/72 H 99 11/12/19 15:22 11/12/19 15:22 11/12/19 15:22 11/12/19 15:22 11/12/19 15:22 Intake & Output 11/11/19 11/12/19 11/13/19 06:59 06:59 06:59 Intake Total 50 Balance 50 Weight 127.459 kg General appearance: PRESENT: cooperative, mild distress, morbidly obese, well- developed Head exam: PRESENT: atraumatic, normocephalic Respiratory exam: PRESENT: rales - Faint, symmetrical, unlabored. ABSENT: accessory muscle use, prolonged expiratory phas, rhonchi, tachypnea, wheezes Cardiovascular exam: PRESENT: RRR, +S1, +S2. ABSENT: bradycardia, diastolic murmur, irregular rhythm, systolic murmur, tachycardia GI/Abdominal exam: PRESENT: normal bowel sounds, soft. ABSENT: distended, guarding, tenderness Rectal exam: PRESENT: deferred Gentrourinary exam: PRESENT: indwelling catheter - purewick Neurological exam: PRESENT: alert, awake, oriented to person, oriented to place, oriented to situation Psychiatric exam: PRESENT: flat affect. ABSENT: agitated, anxious Results Laboratory Results: 11/11/19 23:33 11/11/19 23:33 11/11/19 11/11/19 11/11/19 23:33 23:33 23:33 WBC 6.5 RBC 4.57 Hgb 13.3 Hct 40.4 MCV 88 MCH 29.1 MCHC 33.0 RDW 15.2 H Plt Count 252 Seg Neutrophils % 57.1 Carbonic Acid HCO3/H2CO3 Ratio ABG pH ABG pCO2 ABG pO2 ABG HCO3 ABG O2 Saturation ABG Base Excess FiO2 Sodium 140.4 Potassium 4.1 Chloride 105 Carbon Dioxide 26 Anion Gap 9 BUN 29 H Creatinine 1.34 H Est GFR ( Amer) 49 L Glucose 81 Lactic Acid 0.8 Calcium 8.9 Total Bilirubin 0.9 AST 32 Alkaline Phosphatase 67 Total Protein 6.5 Albumin 3.4 L Urine Color Urine Appearance Urine pH Ur Specific [place] Urine Protein Urine Glucose (UA) Urine Ketones Urine Blood Urine Nitrite Ur Leukocyte Esterase Urine WBC (Auto) Urine RBC (Auto) 11/12/19 11/12/19 02:04 03:19 WBC RBC Hgb Hct MCV MCH MCHC RDW Plt Count Seg Neutrophils % Carbonic Acid 1.13 HCO3/H2CO3 Ratio 19:1 ABG pH 7.38 ABG pCO2 37.4 ABG pO2 79.4 L ABG HCO3 21.7 ABG O2 Saturation 95.6 ABG Base Excess -2.9 FiO2 2L Sodium Potassium Chloride Carbon Dioxide Anion Gap BUN Creatinine Est GFR ( Amer) Glucose Lactic Acid Calcium Total Bilirubin AST Alkaline Phosphatase Total Protein Albumin Urine Color YELLOW Urine Appearance SLIGHTLY-CLOUDY Urine pH 5.0 Ur Specific [place] 1.025 Urine Protein 30 H Urine Glucose (UA) >=500 H Urine Ketones NEGATIVE Urine Blood NEGATIVE Urine Nitrite NEGATIVE Ur Leukocyte Esterase SMALL H Urine WBC (Auto) 28 Urine RBC (Auto) 1 11/11/19 23:33 Troponin I 0.012 NT-Pro-B Natriuret Pep 48 Impressions: Chest X-Ray 11/11/19 22:43 IMPRESSION: Cardiomegaly with mild interstitial edema and suspected small effusions copyright 2011 [employer]- All Rights Reserved Chest/Abdomen CTA 11/11/19 23:44 IMPRESSION: No aortic dissection or aneurysm. No pulmonary embolus. Imaging features can be seen with COVID-19 pneumonia, though are nonspecific and can occur with a variety of infectious and noninfectious processes. [PneInd] Reference: https://pubs.rsna.org/doi/full/10.1148/ryct.8363917527 Assessment and Plan - Diagnosis (1) Acute respiratory failure with hypoxia Is this a current diagnosis for this admission?: Yes (2) Pneumonia due to COVID-19 virus Is this a current diagnosis for this admission?: Yes (3) Obstructive sleep apnea Is this a current diagnosis for this admission?: Yes (4) Hyperglycemia due to diabetes mellitus Is this a current diagnosis for this admission?: Yes (5) Hyperlipidemia Qualifiers: Hyperlipidemia type: unspecified Qualified Code(s): E78.5 - Hyperlipidemia, unspecified Is this a current diagnosis for this admission?: Yes (6) Hypertension Qualifiers: Hypertension type: essential hypertension Qualified Code(s): I10 - Essential (primary) hypertension Is this a current diagnosis for this admission?: Yes (7) Vitamin D deficiency Is this a current diagnosis for this admission?: Yes (8) Morbid obesity Is this a current diagnosis for this admission?: Yes (9) History of left breast cancer Is this a current diagnosis for this admission?: Yes - Plan Summary Summary: Patient will be admitted to the medical floor where she will receive routine supportive and symptomatic cares. She will be treated with supplemental oxygen as needed to maintain adequate oxygen saturation level. She will be treated with IV antibiotics utilizing Rocephin and azithromycin. She will be treated with Decadron 2 mg IV every 8 hours following her initial 10 mg dose given in the ER. She will receive Ativan 1 mg IV every 4 hours as needed for anxiety or restlessness. She will receive morphine sulfate 2 to 4 mg IV every 2 hours as needed for pain. CBCs, metabolic profiles and additional laboratory and/or radiographic evaluations will be obtained as needed. Patient will be offered convalescent plasma and/or intravenous remdesivir as deemed appropriate by her daytime hospitalist. Discharge planning consultation also be obtained. Before meals and at bedtime Accu-Cheks will be obtained and the patient will be treated with sliding scale insulin for hyperglycemia and a hypoglycemic protocol will be in place. She will be on a cardiac and diabetic restricted diet. 11/12/2019 Acute respiratory failure with hypoxia-continue oxygen supplementation. Attempt to taper to room air as tolerated. Failure secondary to covid pneumonia Covid-19 pneumonia-currently stable. Consider additional treatments on top of antibiotics, zinc, vitamin D, melatonin and vitamin C. She is already on Decadron. Will monitor closely and have a low threshold for increased treatments. Obstructive sleep apnea-utilize CPAP at night Hyperglycemia due to diabetes-diabetic diet with Accu-Cheks and sliding scale coverage Hypertension-monitor vital signs. Patient is currently on carvedilol. Expand medication regimen based on vital signs. Hyperlipidemia-continue statin therapy Vitamin D deficiency-2000 units of cholecalciferol added along with zinc, vitamin C and melatonin Morbid obesity-BMI of 46.8. This in fact is a very significant risk factor for Covid-19 based on literature review. - Time Time Spent with patient: 15-24 minutes Medications reviewed and adjusted accordingly: Yes Anticipated Discharge Disposition: Unknown Anticipated Discharge Timeframe: Unknown
[2019-11-12] MEDS: ASCORBIC ACID 500 MG TABLET PO SCH (17:16)
[2019-11-12] MEDS: HYDRALAZINE HCL INJ/PF 20 MG/1 ML SDV IV PRN (19:53)
[2019-11-12] MEDS: CEFTRIAXONE 1 GM/D5W RTU 1 GM/50 ML RTUPB IV SCH (22:21)
[2019-11-12] MEDS: CARVEDILOL 12.5 MG TABLET PO SCH (22:23)
[2019-11-12] MEDS: ATORVASTATIN CALCIUM 10 MG TABLET PO SCH (22:23)
[2019-11-12] MEDS: AZITHROMYCIN 250 MG TABLET PO SCH (22:23)
[2019-11-12] MEDS: GUAIFENESIN 600 MG TABLET.SA PO SCH (22:23)
[2019-11-13 06:04] LABS: HEMATOCRIT 39.6 % (36.0-47.0); HEMOGLOBIN 13.4 g/dL (12.0-15.5); MEAN CORPUSCULAR HEMOGLOBIN 29.8 pg (27.0-33.4); MEAN CORPUSCULAR HGB CONC 33.9 g/dL (32.0-36.0); MEAN CORPUSCULAR VOLUME 88 fl (80-97); PLATELET COUNT 266 10^3/uL (150-450); RED BLOOD COUNT 4.51 10^6/uL (3.72-5.28); WHITE BLOOD COUNT 8.5 10^3/uL (4.0-10.5)
[2019-11-13] MEDS: DEXAMETHASONE SOD PHOSPHATE INJ 4 MG/1 ML VIAL IV SCH ×3 (06:15→22:25)
[2019-11-13] MEDS: HEPARIN SOD (PORCINE) 5,000 UNIT/ML 1 ML VIAL SUBCUT SCH ×3 (06:15→22:24)
[2019-11-13 06:19] LABS: ALBUMIN 3.4 g/dL (3.5-5.0); ALKALINE PHOSPHATASE 73 U/L (38-126); ANION GAP 12 (5-19); ASPARTATE AMINO TRANSFERASE 24 U/L (14-36); BILIRUBIN,DIRECT 0.4 mg/dL (0.0-0.4); BILIRUBIN,TOTAL 0.6 mg/dL (0.2-1.3); BLOOD UREA NITROGEN 30 mg/dL (7-20); CALCIUM 9.3 mg/dL (8.4-10.2); CARBON DIOXIDE 21 mmol/L (22-30); CHLORIDE 109 mmol/L (98-107); GLUCOSE 221 mg/dL (75-110); POTASSIUM 4.4 mmol/L (3.6-5.0); TOTAL PROTEIN 6.5 g/dL (6.3-8.2)
[2019-11-13] MEDS: INSULIN REG, HUMAN 100 UNIT/ML 3 ML VIAL (PYX) SUBCUT SCH ×4 (08:16→22:24)
[2019-11-13] MEDS: CARVEDILOL 12.5 MG TABLET PO SCH ×2 (09:26→22:25)
[2019-11-13] MEDS: ASPIRIN 81 MG TABLET, ENT COATED PO SCH (09:26)
[2019-11-13] MEDS: ZINC SULFATE 220 MG CAPSULE PO SCH (09:26)
[2019-11-13] MEDS: GEMFIBROZIL 600 MG TABLET PO SCH ×2 (09:26→17:05)
[2019-11-13] MEDS: GUAIFENESIN 600 MG TABLET.SA PO SCH ×2 (09:26→22:25)
[2019-11-13] MEDS: ASCORBIC ACID 500 MG TABLET PO SCH ×2 (09:26→17:05)
[2019-11-13] MEDS: FAMOTIDINE 20 MG TABLET PO SCH ×2 (09:26→22:25)
[2019-11-13] MEDS: ALLOPURINOL 300 MG TABLET PO SCH (09:26)
[2019-11-13] MEDS: CHOLECALCIFEROL (D3) 1,000 UNIT (25 MCG) TABLET PO SCH (09:26)
--- NOTE | 2019-11-13 16:19 | PDOC PROGRESS REPORT ---
Subjective Progress Note for:: 11/13/19 Subjective:: The patient actually looks much better than yesterday. She is on nasal cannula. She was on CPAP earlier. She reports that she is on CPAP at home for sleep apnea. We will make this a scheduled measure with as needed application during the day. Reason For Visit: COVID 19 PNEUMONIA Physical Exam Vital Signs: Temp Pulse Resp BP Pulse Ox 97.5 F 65 16 147/82 H 98 11/13/19 11:35 11/13/19 11:35 11/13/19 11:35 11/13/19 11:35 11/13/19 11:35 Intake & Output 11/12/19 11/13/19 11/14/19 06:59 06:59 06:59 Intake Total 50 50 Output Total 925 Balance 50 -875 Weight 127.459 kg 127.6 kg General appearance: PRESENT: cooperative, mild distress, morbidly obese, well- developed Head exam: PRESENT: atraumatic, normocephalic Ear exam: PRESENT: normal external ear exam. ABSENT: bleeding, drainage Mouth exam: PRESENT: moist, tongue midline Neck exam: ABSENT: carotid bruit, JVD, lymphadenopathy, tracheostomy Respiratory exam: PRESENT: clear to auscultation panda, prolonged expiratory phas, symmetrical. ABSENT: rales, rhonchi, tachypnea, wheezes Cardiovascular exam: PRESENT: RRR, +S1, +S2. ABSENT: bradycardia, diastolic murmur, irregular rhythm, systolic murmur, tachycardia GI/Abdominal exam: PRESENT: normal bowel sounds, soft, other - Protuberant abdomen. ABSENT: tenderness Rectal exam: PRESENT: deferred Gentrourinary exam: ABSENT: indwelling catheter Extremities exam: PRESENT: pedal edema Neurological exam: PRESENT: alert, awake, oriented to person, oriented to place, oriented to time, oriented to situation, CN II-XII grossly intact. ABSENT: altered Psychiatric exam: PRESENT: flat affect. ABSENT: agitated, anxious Focused psych exam: ABSENT: delusional, paranoid Skin exam: PRESENT: dry, normal color, warm. ABSENT: rash Results Laboratory Results: 11/13/19 05:07 11/13/19 05:07 11/13/19 11/13/19 05:07 05:07 WBC 8.5 RBC 4.51 Hgb 13.4 Hct 39.6 MCV 88 MCH 29.8 MCHC 33.9 RDW 15.0 H Plt Count 266 Sodium 142.0 Potassium 4.4 Chloride 109 H Carbon Dioxide 21 L Anion Gap 12 BUN 30 H Creatinine 1.15 Est GFR ( Amer) 58 L Glucose 221 H Calcium 9.3 Magnesium 2.5 H Total Bilirubin 0.6 AST 24 Alkaline Phosphatase 73 Total Protein 6.5 Albumin 3.4 L 11/11/19 23:33 Troponin I 0.012 NT-Pro-B Natriuret Pep 48 Impressions: Chest X-Ray 11/11/19 22:43 IMPRESSION: Cardiomegaly with mild interstitial edema and suspected small effusions copyright 2010 [employer]- All Rights Reserved Chest/Abdomen CTA 11/11/19 23:44 IMPRESSION: No aortic dissection or aneurysm. No pulmonary embolus. Imaging features can be seen with COVID-19 pneumonia, though are nonspecific and can occur with a variety of infectious and noninfectious processes. [PneInd] Reference: https://pubs.[facility]na.org/doi/full/10.1148/ryct.1236844701 Assessment and Plan - Diagnosis (1) Acute respiratory failure with hypoxia Is this a current diagnosis for this admission?: Yes (2) Pneumonia due to COVID-19 virus Is this a current diagnosis for this admission?: Yes (3) Obstructive sleep apnea Is this a current diagnosis for this admission?: Yes (4) Hyperglycemia due to diabetes mellitus Is this a current diagnosis for this admission?: Yes (5) Hyperlipidemia Qualifiers: Hyperlipidemia type: unspecified Qualified Code(s): E78.5 - Hyperlipidemia, unspecified Is this a current diagnosis for this admission?: Yes (6) Hypertension Qualifiers: Hypertension type: essential hypertension Qualified Code(s): I10 - Essential (primary) hypertension Is this a current diagnosis for this admission?: Yes (7) Vitamin D deficiency Is this a current diagnosis for this admission?: Yes (8) Morbid obesity Is this a current diagnosis for this admission?: Yes (9) History of left breast cancer Is this a current diagnosis for this admission?: Yes - Plan Summary Summary: Patient will be admitted to the medical floor where she will receive routine supportive and symptomatic cares. She will be treated with supplemental oxygen as needed to maintain adequate oxygen saturation level. She will be treated with IV antibiotics utilizing Rocephin and azithromycin. She will be treated with Decadron 2 mg IV every 8 hours following her initial 10 mg dose given in the ER. She will receive Ativan 1 mg IV every 4 hours as needed for anxiety or restlessness. She will receive morphine sulfate 2 to 4 mg IV every 2 hours as needed for pain. CBCs, metabolic profiles and additional laboratory and/or radiographic evaluations will be obtained as needed. Patient will be offered convalescent plasma and/or intravenous remdesivir as deemed appropriate by her daytime hospitalist. Discharge planning consultation also be obtained. Before meals and at bedtime Accu-Cheks will be obtained and the patient will be treated with sliding scale insulin for hyperglycemia and a hypoglycemic protocol will be in place. She will be on a cardiac and diabetic restricted diet. 11/12/2019 Acute respiratory failure with hypoxia-continue oxygen supplementation. Attempt to taper to room air as tolerated. Failure secondary to covid pneumonia Covid-19 pneumonia-currently stable. Consider additional treatments on top of antibiotics, zinc, vitamin D, melatonin and vitamin C. She is already on Decadron. Will monitor closely and have a low threshold for increased treatments. Obstructive sleep apnea-utilize CPAP at night Hyperglycemia due to diabetes-diabetic diet with Accu-Cheks and sliding scale coverage Hypertension-monitor vital signs. Patient is currently on carvedilol. Expand medication regimen based on vital signs. Hyperlipidemia-continue statin therapy Vitamin D deficiency-2000 units of cholecalciferol added along with zinc, vitamin C and melatonin Morbid obesity-BMI of 46.8. This in fact is a very significant risk factor for Covid-19 based on literature review. 11/13/2019 Respiratory failure-continue oxygen supplementation. The patient's breathing appears more comfortable today. Covid-19 pneumonia-better than yesterday. We will hold off on Remdisivir for the time being. Will monitor closely. Obstructive sleep apnea-patient must utilize CPAP at night. I have also asked that anytime she sleeps during the day it should be applied and then certainly if needed for shortness of breath. Diabetes-continue sliding scale. We do not have Jardiance or Trulicity on the formulary. Will discuss with the patient the possibility of using her medications. Hypertension-reasonable blood pressure control at this time. Continue current regimen. Hyperlipidemia-continue statin therapy Vitamin D deficiency-continue oral supplements. Morbid obesity-significant risk factor with COVID. - Time Time Spent with patient: 15-24 minutes Medications reviewed and adjusted accordingly: Yes Anticipated Discharge Disposition: Home with Home Health Anticipated Discharge Timeframe: 96 hours
[2019-11-13] MEDS: HYDRALAZINE HCL INJ/PF 20 MG/1 ML SDV IV PRN (17:06)
[2019-11-13] MEDS: ATORVASTATIN CALCIUM 10 MG TABLET PO SCH (22:25)
[2019-11-13] MEDS: AZITHROMYCIN 250 MG TABLET PO SCH (22:25)
[2019-11-13] MEDS: CEFTRIAXONE 1 GM/D5W RTU 1 GM/50 ML RTUPB IV SCH (22:26)
[2019-11-14] MEDS: HYDRALAZINE HCL INJ/PF 20 MG/1 ML SDV IV PRN ×2 (03:28→23:24)
[2019-11-14] MEDS: DEXAMETHASONE SOD PHOSPHATE INJ 4 MG/1 ML VIAL IV SCH ×3 (05:46→21:33)
[2019-11-14] MEDS: HEPARIN SOD (PORCINE) 5,000 UNIT/ML 1 ML VIAL SUBCUT SCH ×3 (05:46→21:33)
[2019-11-14] MEDS: INSULIN REG, HUMAN 100 UNIT/ML 3 ML VIAL (PYX) SUBCUT SCH ×4 (08:16→21:32)
[2019-11-14] MEDS: CHOLECALCIFEROL (D3) 1,000 UNIT (25 MCG) TABLET PO SCH (09:07)
[2019-11-14] MEDS: ASCORBIC ACID 500 MG TABLET PO SCH ×2 (09:07→17:03)
[2019-11-14] MEDS: ALLOPURINOL 300 MG TABLET PO SCH (09:07)
[2019-11-14] MEDS: GEMFIBROZIL 600 MG TABLET PO SCH ×2 (09:08→17:03)
[2019-11-14] MEDS: GUAIFENESIN 600 MG TABLET.SA PO SCH ×2 (09:08→21:32)
[2019-11-14] MEDS: ASPIRIN 81 MG TABLET, ENT COATED PO SCH (09:08)
[2019-11-14] MEDS: ZINC SULFATE 220 MG CAPSULE PO SCH (09:08)
[2019-11-14] MEDS: FAMOTIDINE 20 MG TABLET PO SCH ×2 (09:08→21:32)
[2019-11-14] MEDS: CARVEDILOL 12.5 MG TABLET PO SCH ×2 (09:08→21:32)
--- NOTE | 2019-11-14 14:56 | PDOC PROGRESS REPORT ---
Subjective Progress Note for:: 11/14/19 Subjective:: Patient is sitting up in the chair eating lunch. She still has her nasal cannula in place. Reason For Visit: COVID 19 PNEUMONIA Physical Exam Vital Signs: Temp Pulse Resp BP Pulse Ox 98.0 F 69 15 136/81 H 97 11/14/19 11:56 11/14/19 14:00 11/14/19 11:56 11/14/19 11:56 11/14/19 11:56 Intake & Output 11/13/19 11/14/19 11/15/19 06:59 06:59 06:59 Intake Total 50 310 240 Output Total 925 800 Balance -875 -490 240 Weight 127.6 kg 127.2 kg General appearance: PRESENT: no acute distress, cooperative, morbidly obese, well-developed Head exam: PRESENT: atraumatic, normocephalic Ear exam: PRESENT: normal external ear exam. ABSENT: bleeding, drainage Respiratory exam: PRESENT: clear to auscultation panda, symmetrical, unlabored. ABSENT: accessory muscle use, prolonged expiratory phas, rales, rhonchi, tachypnea, wheezes Cardiovascular exam: PRESENT: RRR, +S1, +S2. ABSENT: bradycardia, diastolic murmur, irregular rhythm, systolic murmur, tachycardia GI/Abdominal exam: PRESENT: normal bowel sounds, soft, other - Protuberant abdomen. ABSENT: guarding, tenderness Rectal exam: PRESENT: deferred Neurological exam: PRESENT: alert, awake, oriented to person, oriented to place, oriented to time, oriented to situation, CN II-XII grossly intact. ABSENT: altered Psychiatric exam: PRESENT: flat affect. ABSENT: agitated, anxious Focused psych exam: ABSENT: delusional, restlessness Skin exam: PRESENT: dry, warm. ABSENT: rash Results Laboratory Results: 11/13/19 05:07 11/13/19 05:07 11/14/19 05:16 Magnesium 2.5 H 11/11/19 23:33 Troponin I 0.012 NT-Pro-B Natriuret Pep 48 Impressions: Chest X-Ray 11/11/19 22:43 IMPRESSION: Cardiomegaly with mild interstitial edema and suspected small effusions copyright 2011 [employer]- All Rights Reserved Chest/Abdomen CTA 11/11/19 23:44 IMPRESSION: No aortic dissection or aneurysm. No pulmonary embolus. Imaging features can be seen with COVID-19 pneumonia, though are nonspecific and can occur with a variety of infectious and noninfectious processes. [PneInd] Reference: https://pubs.[facility]na.org/doi/full/10.1148/ryct.9280069729 Assessment and Plan - Diagnosis (1) Acute respiratory failure with hypoxia Is this a current diagnosis for this admission?: Yes (2) Pneumonia due to COVID-19 virus Is this a current diagnosis for this admission?: Yes (3) Obstructive sleep apnea Is this a current diagnosis for this admission?: Yes (4) Hyperglycemia due to diabetes mellitus Is this a current diagnosis for this admission?: Yes (5) Hyperlipidemia Qualifiers: Hyperlipidemia type: unspecified Qualified Code(s): E78.5 - Hyperlipidemia, unspecified Is this a current diagnosis for this admission?: Yes (6) Hypertension Qualifiers: Hypertension type: essential hypertension Qualified Code(s): I10 - Essential (primary) hypertension Is this a current diagnosis for this admission?: Yes (7) Vitamin D deficiency Is this a current diagnosis for this admission?: Yes (8) Morbid obesity Is this a current diagnosis for this admission?: Yes (9) History of left breast cancer Is this a current diagnosis for this admission?: Yes - Plan Summary Summary: Patient will be admitted to the medical floor where she will receive routine supportive and symptomatic cares. She will be treated with supplemental oxygen as needed to maintain adequate oxygen saturation level. She will be treated with IV antibiotics utilizing Rocephin and azithromycin. She will be treated with Decadron 2 mg IV every 8 hours following her initial 10 mg dose given in the ER. She will receive Ativan 1 mg IV every 4 hours as needed for anxiety or restlessness. She will receive morphine sulfate 2 to 4 mg IV every 2 hours as needed for pain. CBCs, metabolic profiles and additional laboratory and/or radiographic evaluations will be obtained as needed. Patient will be offered convalescent plasma and/or intravenous remdesivir as deemed appropriate by her daytime hospitalist. Discharge planning consultation also be obtained. Before meals and at bedtime Accu-Cheks will be obtained and the patient will be treated with sliding scale insulin for hyperglycemia and a hypoglycemic protocol will be in place. She will be on a cardiac and diabetic restricted diet. 11/12/2019 Acute respiratory failure with hypoxia-continue oxygen supplementation. Attempt to taper to room air as tolerated. Failure secondary to covid pneumonia Covid-19 pneumonia-currently stable. Consider additional treatments on top of antibiotics, zinc, vitamin D, melatonin and vitamin C. She is already on Decadron. Will monitor closely and have a low threshold for increased treatments. Obstructive sleep apnea-utilize CPAP at night Hyperglycemia due to diabetes-diabetic diet with Accu-Cheks and sliding scale c overage Hypertension-monitor vital signs. Patient is currently on carvedilol. Expand medication regimen based on vital signs. Hyperlipidemia-continue statin therapy Vitamin D deficiency-2000 units of cholecalciferol added along with zinc, vitamin C and melatonin Morbid obesity-BMI of 46.8. This in fact is a very significant risk factor for Covid-19 based on literature review. 11/13/2019 Respiratory failure-continue oxygen supplementation. The patient's breathing appears more comfortable today. Covid-19 pneumonia-better than yesterday. We will hold off on Remdisivir for the time being. Will monitor closely. Obstructive sleep apnea-patient must utilize CPAP at night. I have also asked t hat anytime she sleeps during the day it should be applied and then certainly if needed for shortness of breath. Diabetes-continue sliding scale. We do not have Jardiance or Trulicity on the formulary. Will discuss with the patient the possibility of using her medications. Hypertension-reasonable blood pressure control at this time. Continue current regimen. Hyperlipidemia-continue statin therapy Vitamin D deficiency-continue oral supplements. Morbid obesity-significant risk factor with COVID. 11/14/2019 Respiratory failure-the patient has her nasal cannula in place but the nurse informed me that the oxygen is actually turned off so she has been on room air stable for most of today. If she remains stable overnight we can discharge her to home tomorrow. Covid-19 pneumonia-continues to improve. Did not administer REM does severe. Continues to improve. Diabetes mellitus-return to home medications at discharge Hypertension-continue current medication regimen Hyperlipidemia-continue statin Continue vitamin D and other supplements typically used for COVID Morbid obesity-encourage weight loss - Time Time Spent with patient: 15-24 minutes Medications reviewed and adjusted accordingly: Yes Anticipated Discharge Disposition: Home with Home Health Anticipated Discharge Timeframe: within 24 hours
[2019-11-14] MEDS: ATORVASTATIN CALCIUM 10 MG TABLET PO SCH (21:32)
[2019-11-14] MEDS: AZITHROMYCIN 250 MG TABLET PO SCH (21:32)
[2019-11-14] MEDS: CEFTRIAXONE 1 GM/D5W RTU 1 GM/50 ML RTUPB IV SCH (21:33)
[2019-11-15] MEDS: DEXAMETHASONE SOD PHOSPHATE INJ 4 MG/1 ML VIAL IV SCH (05:11)
[2019-11-15] MEDS: HEPARIN SOD (PORCINE) 5,000 UNIT/ML 1 ML VIAL SUBCUT SCH (05:11)
[2019-11-15] MEDS: INSULIN REG, HUMAN 100 UNIT/ML 3 ML VIAL (PYX) SUBCUT SCH (08:09)
[2019-11-15 08:24] VITALS: BP 150/93
[2019-11-15] MEDS: FAMOTIDINE 20 MG TABLET PO SCH (10:45)
[2019-11-15] MEDS: ZINC SULFATE 220 MG CAPSULE PO SCH (10:45)
[2019-11-15] MEDS: GEMFIBROZIL 600 MG TABLET PO SCH (10:45)
[2019-11-15] MEDS: CHOLECALCIFEROL (D3) 1,000 UNIT (25 MCG) TABLET PO SCH (10:45)
[2019-11-15] MEDS: ASPIRIN 81 MG TABLET, ENT COATED PO SCH (10:45)
[2019-11-15] MEDS: CARVEDILOL 12.5 MG TABLET PO SCH (10:46)
[2019-11-15] MEDS: GUAIFENESIN 600 MG TABLET.SA PO SCH (10:46)
[2019-11-15] MEDS: ALLOPURINOL 300 MG TABLET PO SCH (10:46)
[2019-11-15] MEDS: ASCORBIC ACID 500 MG TABLET PO SCH (10:46)
--- NOTE | 2019-11-15 12:25 | PDOC DISCHARGE SUMMARY ---
Impression - Admit/DC Date/PCP Admission Date/Primary Care Provider: 11/12/19 03:53 JOSH CALL Discharge Date: 11/15/19 - Discharge Diagnosis (1) Acute respiratory failure with hypoxia Is this a current diagnosis for this admission?: Yes (2) Diabetes mellitus type 2 in obese Is this a current diagnosis for this admission?: Yes (3) Morbid obesity Is this a current diagnosis for this admission?: Yes (4) Pneumonia due to COVID-19 virus Is this a current diagnosis for this admission?: Yes - Assessment Summary: Patient will be admitted to the medical floor where she will receive routine supportive and symptomatic cares. She will be treated with supplemental oxygen as needed to maintain adequate oxygen saturation level. She will be treated with IV antibiotics utilizing Rocephin and azithromycin. She will be treated with Decadron 2 mg IV every 8 hours following her initial 10 mg dose given in the ER. She will receive Ativan 1 mg IV every 4 hours as needed for anxiety or restlessness. She will receive morphine sulfate 2 to 4 mg IV every 2 hours as needed for pain. CBCs, metabolic profiles and additional laboratory and/or radiographic evaluations will be obtained as needed. Patient will be offered convalescent plasma and/or intravenous remdesivir as deemed appropriate by her daytime hospitalist. Discharge planning consultation also be obtained. Before meals and at bedtime Accu-Cheks will be obtained and the patient will be treated with sliding scale insulin for hyperglycemia and a hypoglycemic protocol will be in place. She will be on a cardiac and diabetic restricted diet. 11/12/2019 Acute respiratory failure with hypoxia-continue oxygen supplementation. Attempt to taper to room air as tolerated. Failure secondary to covid pneumonia Covid-19 pneumonia-currently stable. Consider additional treatments on top of antibiotics, zinc, vitamin D, melatonin and vitamin C. She is already on Decadron. Will monitor closely and have a low threshold for increased treatments. Obstructive sleep apnea-utilize CPAP at night Hyperglycemia due to diabetes-diabetic diet with Accu-Cheks and sliding scale coverage Hypertension-monitor vital signs. Patient is currently on carvedilol. Expand medication regimen based on vital signs. Hyperlipidemia-continue statin therapy Vitamin D deficiency-2000 units of cholecalciferol added along with zinc, vitamin C and melatonin Morbid obesity-BMI of 46.8. This in fact is a very significant risk factor for Covid-19 based on literature review. 11/13/2019 Respiratory failure-continue oxygen supplementation. The patient's breathing appears more comfortable today. Covid-19 pneumonia-better than yesterday. We will hold off on Remdisivir for the time being. Will monitor closely. Obstructive sleep apnea-patient must utilize CPAP at night. I have also asked that anytime she sleeps during the day it should be applied and then certainly if needed for shortness of breath. Diabetes-continue sliding scale. We do not have Jardiance or Trulicity on the formulary. Will discuss with the patient the possibility of using her medications. Hypertension-reasonable blood pressure control at this time. Continue current regimen. Hyperlipidemia-continue statin therapy Vitamin D deficiency-continue oral supplements. Morbid obesity-significant risk factor with COVID. 11/14/2019 Respiratory failure-the patient has her nasal cannula in place but the nurse informed me that the oxygen is actually turned off so she has been on room air stable for most of today. If she remains stable overnight we can discharge her to home tomorrow. Covid-19 pneumonia-continues to improve. Did not administer REM does severe. Continues to improve. Diabetes mellitus-return to home medications at discharge Hypertension-continue current medication regimen Hyperlipidemia-continue statin Continue vitamin D and other supplements typically used for COVID Morbid obesity-encourage weight loss - Additional Information Resuscitation Status: Full Code Discharge Diet: Cardiac, Diabetic Discharge Activity: Balance Activity w/Rest, Energy Conservation, Slowly Increase Activity Referrals: JOSH CALL MD [Primary Care Provider] - 11/25/19 1:15 pm (1 week) Home Medications: Allopurinol [Zyloprim 300 mg Tablet] 300 mg PO DAILY 04/28/16 Carvedilol [Coreg 25 mg Tablet] 25 mg PO Q12 04/28/16 Dulaglutide [Trulicity] 1.5 mg SQ Q7D 07/12/18 Aspirin [Adult Low Dose Aspirin EC] 81 mg PO DAILY 11/12/19 Atorvastatin Calcium [Lipitor 10 mg Tablet] 10 mg PO QHS 11/12/19 Empagliflozin [Jardiance] 25 mg PO DAILY 11/12/19 Gemfibrozil [Lopid 600 mg Tablet] 600 mg PO BID 11/12/19 Prospect-3/Dha/Epa/Fish Oil [Fish Oil 1,000 mg Softgel] 1 cap PO DAILY 09/29/20 History of Present Illiness History of Present Illness: JESSIE BELL is a 59 year old female who presented to the emergency room with a 4-day history of dyspnea. She admits gradually worsening dyspnea over the course of the last 4 days accompanied by a nonproductive cough and associated with intermittent subjective fever, ague and malaise. Her dyspnea is worsened with exertion/activity and has become moderately severe resulting in her emergency room visit. She further admits testing positive for COVID-19 on 11/05/2019 as she had been exposed to the disease by a family member. She denies other associated or accompanying signs and symptoms. She denies prior similar episodes. She has not identified any additional aggravating or ameliorating factors for her dyspnea. In the emergency room she was found to have a multifocal pneumonia pattern consistent with COVID-[address] Hospital Course Hospital Course: She received supportive care, including Decadron and some adjunctive treatments, but did not require remdesivir. She was able to be weaned down to room air over a few days. She is able to provide self-care without difficulty in the room. She is currently asymptomatic. There is no need for any further home treatment other than the typical precautionary measures. She has been encouraged to take it easy at home for a few more days and gradually increase her level of activity. She will follow-up with her primary care provider Dr. Call within 1 week. She will resume her usual home medications. Her labs and examination were reassuring and she was discharged in stable condition. Physical Exam Vital Signs: Temp Pulse Resp BP Pulse Ox 97.6 F 75 20 150/93 H 95 11/15/19 10:27 11/15/19 10:27 11/15/19 10:27 11/15/19 07:56 11/15/19 10:27 Intake & Output 11/14/19 11/15/19 11/16/19 06:59 06:59 06:59 Intake Total 310 480 Output Total 800 Balance -490 480 Weight 127.2 kg 128.8 kg General appearance: PRESENT: no acute distress, cooperative, morbidly obese, well-developed Head exam: PRESENT: atraumatic, normocephalic Ear exam: PRESENT: normal external ear exam. ABSENT: bleeding, drainage Respiratory exam: PRESENT: clear to auscultation panda, symmetrical, unlabored. ABSENT: accessory muscle use, prolonged expiratory phas, rales, rhonchi, tachypnea, wheezes Cardiovascular exam: PRESENT: RRR, +S1, +S2. ABSENT: bradycardia, diastolic murmur, irregular rhythm, systolic murmur, tachycardia GI/Abdominal exam: PRESENT: normal bowel sounds, soft, other - Protuberant abdomen. ABSENT: guarding, tenderness Rectal exam: PRESENT: deferred Neurological exam: PRESENT: alert, awake, oriented to person, oriented to place, oriented to time, oriented to situation, CN II-XII grossly intact. ABSENT: altered Psychiatric exam: PRESENT: flat affect. ABSENT: agitated, anxious Results Laboratory Results: WBC 8.5 10^3/uL (4.0-10.5) 11/13/19 05:07 RBC 4.51 10^6/uL (3.72-5.28) 11/13/19 05:07 Hgb 13.4 g/dL (12.0-15.5) 11/13/19 05:07 Hct 39.6 % (36.0-47.0) 11/13/19 05:07 MCV 88 fl (80-97) 11/13/19 05:07 MCH 29.8 pg (27.0-33.4) 11/13/19 05:07 MCHC 33.9 g/dL (32.0-36.0) 11/13/19 05:07 RDW 15.0 % (11.5-14.0) H 11/13/19 05:07 Plt Count 266 10^3/uL (150-450) 11/13/19 05:07 Lymph % (Auto) 30.5 % (13-45) 11/11/19 23:33 Love % (Auto) 11.1 % (3-13) 11/11/19 23:33 Eos % (Auto) 0.2 % (0-6) 11/11/19 23:33 Baso % (Auto) 1.1 % (0-2) 11/11/19 23:33 Absolute Neuts (auto) 3.7 10^3/uL (1.7-8.2) 11/11/19 23:33 Absolute Lymphs (auto) 2.0 10^3/uL (0.5-4.7) 11/11/19 23:33 Absolute Monos (auto) 0.7 10^3/uL (0.1-1.4) 11/11/19 23:33 Absolute Eos (auto) 0.0 10^3/uL (0.0-0.6) 11/11/19 23:33 Absolute Basos (auto) 0.1 10^3/uL (0.0-0.2) 11/11/19 23:33 Seg Neutrophils % 57.1 % (42-78) 11/11/19 23:33 Carbonic Acid 1.13 mmol/L (1.05-1.35) 11/12/19 03:19 HCO3/H2CO3 Ratio 19:1 11/12/19 03:19 ABG pH 7.38 (7.35-7.45) 11/12/19 03:19 ABG pCO2 37.4 mmHg (35-45) 11/12/19 03:19 ABG pO2 79.4 mmHg (80-100) L 11/12/19 03:19 ABG HCO3 21.7 mmol/L (20-24) 11/12/19 03:19 ABG Total CO2 22.8 mmol/L (21-25) 11/12/19 03:19 ABG O2 Saturation 95.6 % (94-98) 11/12/19 03:19 ABG Base Excess -2.9 mmol/L 11/12/19 03:19 FiO2 2L 11/12/19 03:19 Sodium 142.0 mmol/L (137-145) 11/13/19 05:07 Potassium 4.4 mmol/L (3.6-5.0) 11/13/19 05:07 Chloride 109 mmol/L (98-107) H 11/13/19 05:07 Carbon Dioxide 21 mmol/L (22-30) L 11/13/19 05:07 Anion Gap 12 (5-19) 11/13/19 05:07 BUN 30 mg/dL (7-20) H 11/13/19 05:07 Creatinine 1.15 mg/dL (0.52-1.25) 11/13/19 05:07 Est GFR ( Amer) 58 (>60) L 11/13/19 05:07 Est GFR (MDRD) Non-Af 48 (>60) L 11/13/19 05:07 Glucose 221 mg/dL (75-110) H 11/13/19 05:07 POC Glucose 172 mg/dL (70-110) H 11/15/19 07:57 Lactic Acid 0.8 mmol/L (0.7-2.1) 11/11/19 23:33 Calcium 9.3 mg/dL (8.4-10.2) 11/13/19 05:07 Magnesium 2.8 mg/dL (1.6-2.3) H 11/15/19 05:17 Total Bilirubin 0.6 mg/dL (0.2-1.3) 11/13/19 05:07 Direct Bilirubin 0.4 mg/dL (0.0-0.4) 11/13/19 05:07 Neonat Total Bilirubin Not Reportable 11/13/19 05:07 Neonat Direct Bilirubin Not Reportable 11/13/19 05:07 Neonat Indirect Bili Not Reportable 11/13/19 05:07 AST 24 U/L (14-36) 11/13/19 05:07 ALT 16 U/L (<35) 11/13/19 05:07 Alkaline Phosphatase 73 U/L (38-126) 11/13/19 05:07 Troponin I 0.012 ng/mL 11/11/19 23:33 NT-Pro-B Natriuret Pep 48 pg/mL (<125) 11/11/19 23:33 Total Protein 6.5 g/dL (6.3-8.2) 11/13/19 05:07 Albumin 3.4 g/dL (3.5-5.0) L 11/13/19 05:07 Urine Color YELLOW 11/12/19 02:04 Urine Appearance SLIGHTLY-CLOUDY 11/12/19 02:04 Urine pH 5.0 (5.0-9.0) 11/12/19 02:04 Ur Specific [place] 1.025 11/12/19 02:04 Urine Protein 30 mg/dL (NEGATIVE) H 11/12/19 02:04 Urine Glucose (UA) >=500 mg/dL (NEGATIVE) H 11/12/19 02:04 Urine Ketones NEGATIVE mg/dL (NEGATIVE) 11/12/19 02:04 Urine Blood NEGATIVE (NEGATIVE) 11/12/19 02:04 Urine Nitrite NEGATIVE (NEGATIVE) 11/12/19 02:04 Urine Bilirubin NEGATIVE (NEGATIVE) 11/12/19 02:04 Urine Urobilinogen 4.0 mg/dL (<2.0) H 11/12/19 02:04 Ur Leukocyte Esterase SMALL (NEGATIVE) H 11/12/19 02:04 Urine WBC (Auto) 28 /HPF 11/12/19 02:04 Urine RBC (Auto) 1 /HPF 11/12/19 02:04 U Hyaline Cast (Auto) 2 /LPF 11/12/19 02:04 Urine Bacteria (Auto) 3+ /HPF 11/12/19 02:04 Squamous Epi Cells Auto 1 /HPF 11/12/19 02:04 Urine Mucus (Auto) RARE /LPF 11/12/19 02:04 Urine Ascorbic Acid NEGATIVE (NEGATIVE) 11/12/19 02:04 11/11/19 23:33 Troponin I 0.012 NT-Pro-B Natriuret Pep 48 Impressions: Chest X-Ray 11/11/19 22:43 IMPRESSION: Cardiomegaly with mild interstitial edema and suspected small effusions copyright 2011 [employer]- All Rights Reserved Chest/Abdomen CTA 11/11/19 23:44 IMPRESSION: No aortic dissection or aneurysm. No pulmonary embolus. Imaging features can be seen with COVID-19 pneumonia, though are nonspecific and can occur with a variety of infectious and noninfectious processes. [PneInd] Reference: https://pubs.rsna.org/doi/full/10.1148/ryct.6777559605 Plan Time Spent: Greater than 30 Minutes Stroke Is this a Stroke Patient?: No Acute Heart Failure Is this a Heart Failure Patient?: No
== END 2019-11-15 11:10 | disposition home health service (06) | DRG 177 ==
LOC: ER 21:01 → EH 11-12 03:53 → 3N 11-12 10:07
PROVIDERS: ADMIT Emergency Medicine; ATTEND Family Medicine
PROC: 5A09457 Assistance with Respiratory Ventilation, 24-96 Consecutive Hours, Continuous Positive Airway Pressure (ICD-10-PCS; principal; 2019-11-12)
DX: U07.1 COVID-19 (principal); J12.89 Other viral pneumonia; J96.01 Acute respiratory failure with hypoxia; Z68.42 Body mass index [BMI] 45.0-49.9, adult; E78.5 Hyperlipidemia, unspecified; I10 Essential (primary) hypertension; Z85.3 Personal history of malignant neoplasm of breast; Z92.3 Personal history of irradiation; E66.01 Morbid (severe) obesity due to excess calories; E11.65 Type 2 diabetes mellitus with hyperglycemia; E55.9 Vitamin D deficiency, unspecified; G47.33 Obstructive sleep apnea (adult) (pediatric); M19.90 Unspecified osteoarthritis, unspecified site; F32.9 Major depressive disorder, single episode, unspecified; Z90.49 Acquired absence of other specified parts of digestive tract; Z90.12 Acquired absence of left breast and nipple; Z83.3 Family history of diabetes mellitus; Z82.49 Family history of ischemic heart disease and other diseases of the circulatory system; Z79.84 Long term (current) use of oral hypoglycemic drugs; Z79.899 Other long term (current) drug therapy
CPT/HCPCS: 36415; 71045; 71275; 80053; 81001; 82803; 82962; 83605; 83735; 83880; 84484; 85025; 85027; 87040; 93005; 93010; 94640; 94660; 96374; 99285; J0360; J0696; J1100; J1644; J1815; J3490